=== PATIENT | female | born 1940 | race Caucasian/White ===

== ENCOUNTER 2023-11-10 10:14 | Inpatient (IN) | payer MEDICARE, OTHER, SELFPAY ==
[2023-11-10] VITALS (20 sets, daily range): BP systolic 126–188; BP diastolic 53–68; BMI 24.1
--- NOTE | 2023-11-10 10:18 | W.PN.CARDCBS ---
Today's Communication / Plan
-
LHC
repeat echo in AM
cardiac rehab consult
Impression / Plan
-
PCP: Reece Michele, DO
CDY: John Donovan MD
HPI: 83 y/o white female, PMH sig for CAD w/LAD PCI (05/2020), difficult to control HTN and has seen Dr. Shrestha in the past for management, LVH, LBBB, HLD intolerant to statins, hypothyroidism. She keeps a daily BP log and states normal for her is
120s. She recently was in [facility] 10/03/23 with hypertensive urgency with associated chest pain. BP meds adjusted and she was discharged after 3 days.
Presented to [facility] on 11/06 with new onset chest discomfort radiating to left axilla and arm, no other associated symptoms. It was similar to her chest pain prior to her stent in 2019. EKG NSR w/LBBB, no acute changes. HS troponin peak at 115.
Started on IV heparin and transferred today for [facility].
Echo 05/2023- nml LVSF, EF 60-65%, mild CLVH, mild MR, mild AR, no sig change since 2019
IMPRESSION/PLAN:
NSTEMI
CAD w/prior LAD PCI (05/2020) with known LBBB since then
now with similar anginal symptoms and elevated HS troponin
LHC today
asa 81mg daily- dose given this morning
echo in AM
cardiac rehab consult
followup at [facility] at discharge
HTN- difficult to control and recent hospitalization for hypertensive urgency
currently on losartan 50 BID, nifecipine ER 60/d with PRN HCTZ 25/d if SBP>160
SBP 150s for now- monitor on tele and adjust as needed
she had symptomatic hypotension with labetolol, which was d/c in September 2023.
LVH noted on echo from 05/2023
HLD- statin intolerant- even low dose twice a week rosuvastatin
hold off for now, check lipid profile
Anxiety- continue celexa, PRN ativan
Progress Note - Slot Floorperson
Subjective
Date of Service: November 10, 2023
Physical Exam
Physical Exam
AAO3, MAEE 10/25
RRR S1 S2 no murmurs
CTA bilat, non labored
soft abd, + bs
bilat extremities w/palpable distal pulses, no edema
[2023-11-10] MEDS: NSS 204 ML IV (11:10)
[2023-11-10 11:49] LABS: Glucose - Point of Care 111 mg/dl (70-99)
--- NOTE | 2023-11-10 13:40 | ITS.CL.CATH ---
Meat Washer - Catheterization
Cardiac Catheterization
Procedure Report:
CARDIAC CATHETERIZATION REPORT
Date of Procedure: 11/10/2023
Referring: Diego Osorio D.O.
INDICATION: Known coronary artery disease, troponin elevation. Difficult to control hypertension.
PROCEDURE:
1. Left heart catheterization.
2. Coronary angiography
3. IFR of the mid RCA.
ACCESS:
6 [place] right radial artery.
CATHETERS:
1. 5 [place] JR4.
2. 5 [place] JL 3.5.
3. 6 [place] JR4 guiding catheter.
HEMODYNAMIC DATA
Weight (kg): 68.0
AO (s/d/x, mmHg): 169/67/109
LV (s/x mmHg): 169/9
LEFT VENTRICULOGRAPHY: Not performed.
CORONARY ANGIOGRAPHY
Dominance: Right.
Left Main: Normal size, trifurcating vessel. There is no coronary artery disease.
LAD: Normal size vessel giving rise to 1 significant diagonal. A patent stent is visible in the mid vessel with no evidence of in-stent restenosis.
Ramus: Medium size vessel supplying the majority of the lateral wall. There is no coronary artery disease.
Circumflex: Normal size, nondominant vessel, essentially a single large marginal supplying the inferolateral wall. There is a 30% lesion in the ostium of the vessel.
RCA: Normal size, dominant vessel. There are tandem 40% lesions in the mid vessel.
INTERVENTION(S)
1. Successful IFR of the tandem 40% mid RCA lesions demonstrating nonocclusive disease (IFR = 0.94).
Narrative:
The decision was made to perform physiologic testing. The diagnostic catheter was removed over a wire and exchanged for a(n) 6 [place] JR4 guiding catheter. The guiding catheter was advanced into the ascending aorta and seated in the right coronary
artery. Additional heparin was given to obtain an ACT greater than 250 seconds. An iFR wire was zeroed outside of the body, then inserted into the guiding sheath. The wire was advanced and the transducer was normalized just outside of the guiding
catheter tip. The wire was advanced into the distal RCA. Three iFR measurements were taken. The lesion was determined to be nonocclusive (0.94).
Closure Device: Vascular band for the right radial artery.
Radiation (mGy): 203.66
DAP (cm2.Gy): 13.0531
Fluoroscopy time (minutes): 4.2
Sedation time (minutes): 36
CONCLUSIONS
1. Right dominant circulation with a patent stent in the mid LAD, a 30% lesion in the ostium of the left circumflex and nonocclusive, tandem 40% mid RCA lesions (IFR = 0.94).
2. Normal filling pressures (LVEDP = 9 mmHg at 68.0 kg).
3. Known labile and difficult to control hypertension.
RECOMMENDATIONS:
1. Expectant management after cardiac catheterization via right radial approach.
2. Limited weight bearing on the right wrist for one week.
3. No obvious source of troponin leak from an epicardial coronary obstruction standpoint. I suspect that this is due to her difficult to control blood pressure.
4. Continue losartan and nifedipine.
5. The patient should take a double dose of her losartan if she notices her blood pressure spiking.
Copy to: [ ]
Toan Santamaria, DO, FACC, FACP
[2023-11-10 14:48] LABS: ACT-LR - POC > 397 Seconds (116-155)
[2023-11-10] MEDS: ALDACTONE 25 MG PO (15:13)
--- NOTE | 2023-11-10 15:57 | CM ---
CM following for DC planning needs.
Met w/ patient at bedside to complete initial assessment.
Pt. resides at [facility] w/ spouse in the indep. living apartments. Pt. is functionally indep. without use of any assisted device. Pt. ambulates with a walking stick if walking in the [place].
Pt. has Rx plan and uses [facility] for prescription needs.
Pt. may need transportation back home upon DC as spouse does not drive.
Reviewed options.
Anticipate return to home upon DC.
Will cont. to follow.
--- NOTE | 2023-11-10 17:51 | PTCARENOTE ---
Rec'd pt from section laborer awake and alert. Pt denies pain, denies sob. Pt assisted oob, ambulated to bathroom. Pt states she felt dizzy when she stood up. Pt NSR with frequent PVC's when she stood up. Rt radial TR band, air released as per protocol. Pt
denies CP, denies sob. See worklist for VS/I and O and assessments.
--- NOTE | 2023-11-10 18:38 | PTCARENOTE ---
TR band removed. dsg applied. no bleeding, no hematoma noted.
[2023-11-10] MEDS: COZAAR 50 MG PO (20:05)
--- NOTE | 2023-11-10 23:32 | PTCARENOTE ---
Patient denies any complaints of pain or discomfort. Right radial cath site wnl. Remains in SR in the 60-70's. Receiving frequent phone calls from her .
[2023-11-11 04:45] VITALS: BP 176/65
[2023-11-11] MEDS: SYNTHROID 75 MCG PO (04:57)
[2023-11-11 05:22] LABS: Hematocrit 35.8 % (37.0-47.0); Hemoglobin 12.5 g/dL (12.0-16.0); Mean Corp Hgb Conc. 34.9 g/dL (33.0-37.0); Mean Corpuscular Hgb 30.6 pg (27.0-31.0); Mean Corpuscular Volume 87.7 fL (81.0-99.0); Mean Platelet Volume 10.7 fL (7.4-10.4); Platelet Count 254 10^3/uL (130-400); Red Blood Cell Count 4.08 10^6/uL (4.20-5.40); Red Cell Dist. Width 13.2 % (11.5-14.5); White Blood Cell Count 9.3 10^3/uL (4.8-10.8)
[2023-11-11 05:36] LABS: Blood Urea Nitrogen 16 mg/dl (7-17); Calcium 9.2 mg/dl (8.4-10.2); Carbon Dioxide 21 mmol/L (22-30); Chloride 103 mmol/L (98-107); Estimated Creatinine Clearance 57 ml/min; Glucose 103 mg/dl (70-99); HDL Cholesterol 64 mg/dl; LDL Cholesterol, Calculated 104 mg/dl; Sodium 131 mmol/L (135-145); Total Cholesterol 184 mg/dl (50-199); Triglyceride 80 mg/dl (10-149); Very Low Density Lipoprotein 16 mg/dl (0-30); eGFR > 60.00
[2023-11-11 08:05] VITALS: BP 163/67
--- NOTE | 2023-11-11 08:41 | W.PN.CARDCBS ---
Addendum entered and electronically signed by John Donovan MD 11/11/23 09:05:
I saw and examined the patient.
The ANESTHETIST's note was reviewed and I agree with the note.
Comment: She is feeling well. On exam rra site well healed, rrr lungs cta, no le edema a&o x 3. Will try and get better longitudinal control of bp, diuretic not ideal with low na and high k, will increase nifedipine. She will call my office next
week with home bp log, ok for d/c
Original Note:
Today's Communication / Plan
-
stable for d/c home
Impression / Plan
-
PCP: Dr. Laws at [facility]
CDY: John Donovan MD
HPI: 83 y/o white female, PMH sig for CAD w/LAD PCI (05/2020), difficult to control HTN and has seen Dr. Shrestha in the past for management, LVH, LBBB, HLD intolerant to statins, hypothyroidism. She keeps a daily BP log and states normal for her is
120s. She recently was in [facility] 10/03/23 with hypertensive urgency with associated chest pain. BP meds adjusted and she was discharged after 3 days.
Presented to [facility] ER on 11/06 with new onset chest discomfort radiating to left axilla and arm, no other associated symptoms. It was similar to her chest pain prior to her stent in 2019. EKG NSR w/LBBB, no acute changes. HS troponin peak at 115.
Started on IV heparin and transferred today for [facility].
Echo 05/2023- nml LVSF, EF 60-65%, mild LVH, mild MR, mild AR, no sig change since 2019
11/10/23 LHC:
1. Right dominant circulation with a patent stent in the mid LAD, a 30% lesion in the ostium of the left circumflex and nonocclusive, tandem 40% mid RCA lesions (IFR = 0.94).
2. Normal filling pressures (LVEDP = 9 mmHg at 68.0 kg).
3. Known labile and difficult to control hypertension.
IMPRESSION/PLAN:
Non ischemic myocardial injury
CAD w/prior LAD PCI (05/2020) with known LBBB since then
mild troponin elevation peak HS 115 at [facility] with non occlusive RCA lesion IFR neg
rad site stable
continue asa 81mg daily
followup at [facility] at discharge
HTN- difficult to control and recent hospitalization for hypertensive urgency
currently on losartan 50 BID, nifedipine ER 60/d with PRN HCTZ 25/d if SBP>160
K 5.0 so unable to use spironolactone, will increase nifedipine to 90mg daily
will recheck BMP in 1 week
she had symptomatic hypotension and bradycardia with labetalol, which was d/c in September 2023.
unable to use BB
LVH noted on echo from 05/2023
HLD- statin intolerant- even low dose twice a week rosuvastatin
hold off for now, check lipid profile
Anxiety- continue celexa, PRN ativan
Progress Note - Wallpaper Inspector And Shipper
Subjective
Date of Service: November 11, 2023
no cp, sob, feels good
Objective
Labs:
11/11/23 04:50
11/11/23 04:50
Labs
Hgb 12.5 g/dL (12.0-16.0) 11/11/23 04:50
Hct 35.8 % (37.0-47.0) L 11/11/23 04:50
Plt Count 254 10^3/uL (130-400) 11/11/23 04:50
Sodium 131 mmol/L (135-145) L 11/11/23 04:50
Potassium 5.0 mmol/L (3.5-5.1) 11/11/23 04:50
BUN 16 mg/dl (7-17) 11/11/23 04:50
Creatinine 0.7 mg/dL (0.6-1.0) 11/11/23 04:50
Glucose 103 mg/dl (70-99) H 11/11/23 04:50
Vital Signs and I&O:
Vital Signs
Temp Pulse Resp BP Pulse Ox
97.6 F 75 16 176/65 98
11/11/23 08:04 11/11/23 08:04 11/11/23 08:04 11/11/23 04:45 11/11/23 08:04
Vital Signs
Temp Pulse Resp BP Pulse Ox
97.6 F 75 16 176/65 98
11/11/23 08:04 11/11/23 08:04 11/11/23 08:04 11/11/23 04:45 11/11/23 08:04
Intake & Output
11/09/23 11/10/23 11/11/23 11/12/23
06:59 06:59 06:59 06:59
Intake Total 1454 / 1454
Balance 1454 / 1454
Physical Exam
Physical Exam
NAD, AOX3
S1, S2, RRR
CTAB, non labored, no wheeze
SNTND bsx4
R rad site c/d/i no HT, good pulse
[2023-11-11] MEDS: PROCARDIA XL (EXTENDED RELEASE) 60 MG PO (09:20)
[2023-11-11] MEDS: ALDACTONE 25 MG PO (09:20)
[2023-11-11] MEDS: ASPIR LOW (ENTERIC COATED) 81 MG PO (09:20)
[2023-11-11] MEDS: FOLVITE 0.400000000000000022 MG PO (09:21)
[2023-11-11] MEDS: CELEXA 10 MG PO (09:21)
[2023-11-11] MEDS: COZAAR 50 MG PO (09:21)
[2023-11-11 09:46] VITALS: BMI 24.0
[2023-11-11 11:31] VITALS: BP 141/53
--- NOTE | 2023-11-11 11:41 | CM ---
CM following for DC planning needs.
Pt. for DC to home today. Order noted.
Met w/ patient at bedside. Pt. feels well; states that she has transport home by a friend this PM.
Declined need for VN.
Pt. has outpatient labs needed in x1 wk. Pt. informs me that her facility has O/P lab M/W/F. Faxed RX to [facility] [address] (@[email or web address]) for their records, paper RX placed in DC chart.
No other needs identified.
Plan: HOME, no needs.
--- NOTE | 2023-11-11 13:45 | W.DS.TRANS ---
DC Summary - Drainage Engineer
-
Discharge Instructions:
Discharge Diagnosis/Procedures NSTEMI, s/p cardiac catheterization
Diet Low Cholesterol
Driving Restrictions No driving for 24 hours
Blood Work Check BMP in 1 week
Other Services Cardiac Rehab
Instructions:
Stand-Alone Forms: DC Instructions- Cath/EP Lab
Changes to Home Medications: Yes
Discharge Medications:
DC Medications w/original date entered in [facility]
L.acidoph, paracasei,B. lactis 10 billion cell capsule 1 ea PO DAILY Supplement 06/05/20
aspirin 81 mg tablet,delayed release 81 mg PO DAILY Blood clot prevention/tx 06/05/20
carboxymethylcellulose sodium 0.25 % eye drops (TheraTears) 15 ml OP DAILYPRN PRN dry eyes 06/05/20
cyanocobalamin (vitamin B-12) 1,000 mcg tablet 1,000 mcg PO DAILY Supplement 06/05/20
folic acid 400 mcg tablet 0.4 mg PO DAILY Supplement 06/05/20
levothyroxine 75 mcg tablet 75 mcg PO DAILY Thyroid 06/05/20
milk thistle 500 mg capsule 500 mg PO QPM Supplement 06/05/20
nitroglycerin 0.4 mg sublingual tablet 0.4 mg sublingual [id number] PRN chest pain 06/05/20
phytonadione (vitamin K1) 100 mcg tablet 100 mcg PO DAILY Supplement 06/05/20
vitamin E (dl, acetate) 45 mg (100 unit) capsule 100 units PO QPM Supplement 06/05/20
cholecalciferol (vitamin D3) 125 mcg (5,000 unit) tablet (Vitamin D3) 125 mcg PO DAILY 11/10/23
citalopram 10 mg tablet (Celexa) 10 mg PO DAILY 11/10/23
coenzyme Q10 150 mg capsule 150 mg PO DAILY 11/10/23
hydrochlorothiazide 25 mg tablet 25 mg PO DAILY PRN SBP>160 11/10/23
lorazepam 0.5 mg tablet 0.5 mg PO HS PRN anxiety 11/10/23
losartan 50 mg tablet 50 mg PO BID 11/10/23
omega-3 fatty acids-fish oil 684 mg-1,200 mg capsule,delayed release 1 cap PO QPM 11/10/23
nifedipine 90 mg tablet,extended release 24 hr 90 mg PO DAILY #30 tabs 11/11/23
Home Medication Changes
increase nifedipine to 90 daily
Pending Results: No
== END 2023-11-11 14:36 | disposition home or self-care (01) | DRG 287 ==
LOC: IVU 10:14
PROVIDERS: Nurse Practitioner; ADMITTING PHYSICIAN Internal Medicine Cardiovascular Disease; FAMILY PHYSICIAN Internal Medicine
PROC: 4A023N7 Measurement of Cardiac Sampling and Pressure, Left Heart, Percutaneous Approach (ICD-10-PCS; 2023-11-10)
PROC: B2111ZZ Fluoroscopy of Multiple Coronary Arteries using Low Osmolar Contrast (ICD-10-PCS; 2023-11-10)
DX: I5A Non-ischemic myocardial injury (non-traumatic) (principal); I25.10 Atherosclerotic heart disease of native coronary artery without angina pectoris; I16.0 Hypertensive urgency; I11.9 Hypertensive heart disease without heart failure; E78.5 Hyperlipidemia, unspecified; F41.9 Anxiety disorder, unspecified; Z79.82 Long term (current) use of aspirin; I44.7 Left bundle-branch block, unspecified; E03.9 Hypothyroidism, unspecified
CPT/HCPCS: 80048; 80061; 82962; 85027; 85347; 87070; 93005; 93458; 93571; C1769; C1894; Q9967

== ENCOUNTER 2024-03-23 11:00 | Inpatient (IN) | payer MEDICARE, OTHER, SELFPAY ==
[2024-03-23] VITALS (18 sets, daily range): BP systolic 127–198; BP diastolic 53–118; BMI 25.1
[2024-03-23] MEDS: PROCARDIA XL (EXTENDED RELEASE) 90 MG PO (11:01)
--- NOTE | 2024-03-23 11:04 | W.PN.CD ---
Today's Communication / Plan
-
-CT surgery consulted.
-Neurology consult to determine whether patient can be placed on heparin.
-Holding Plavix for anticipation of CT surgery.
-Will obtain transthoracic echocardiogram today.
-Cardiac catheterization tomorrow for coronary assessment.
Impression / Plan
-
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 Donovan, her primary Lime Kiln Tender) with hypertension and hypothyroidism who underwent elective SILVER today for recent stroke and was managed at an outside hospital; an outpatient SILVER/ILR was recommended by that
Institution. Plan was for a SILVER/ILR today, but the patient was found to have a 1.0 x 1.8 cm mobile echodensity on the ventricular surface of the mitral valve on the SILVER; therefore, the subsequent ILR was canceled. Patient admitted to Cardiology
service to undergo CT Surgery evaluation. Patient was on aspirin/Plavix for recent CVA, as per Neurology.
CVA/Mitral valve mobile echodensity:
-CT surgery consulted.
-Neurology consult to determine whether patient can be placed on heparin.
-Holding Plavix for anticipation of CT surgery.
-Will obtain transthoracic echocardiogram today.
-Cardiac catheterization tomorrow for coronary assessment.
Aortic regurgitation:
-Likely mild to moderate on SILVER, but will obtain better assessment via transthoracic echo today.
Hypertension:
-Continue outpatient medications for now.
Physical Exam
Vital Signs/Labs
Vital Signs
Temp Pulse Resp BP Pulse Ox
97.6 F 64 18 186/61 100
03/23/24 10:47 03/23/24 11:01 03/23/24 10:47 03/23/24 11:01 03/23/24 10:47
03/22/24 03/23/24 03/24/24
06:59 06:59 06:59
Actual Weight 68.492 kg
Physical Exam
Constitutional: No acute distress and Comfortable
EENT: Anicteric
Cardiovascular: Rhythm & rate is regular, Pedal edema is absent, Systolic murmur present (Soft 2/6 systolic) and S1S2 is normal
Respiratory: Respiratory effort normal
GI: Soft
Neuro/Psych: AO x 3
Other: Skin (Warm, dry, intact)
Data Reviewed
-
Date of Service: March 23, 2024
EKG: Tracing Personally Visualized and interpreted (Telemetry: Sinus rhythm)
Echo: Tracing Personally Visualized and interpreted (1.0 x 1.8 cm mitral valve echodensity)
--- NOTE | 2024-03-23 13:38 | PTCARENOTE ---
Rec'd pt from pathology lab technician on tele monitor in NSR with elevated bp. Rec'd order for Procardia and bp stabilized (see flowchart). Neuro check completed with no deficits, pt has history of CVA on 02/29/2024 (see neuro check in flowchart). PT denied any
pain or discomfort. Ct scan of head is complete and awaiting results. Pt sitting at bedside eating lunch with call jain in reach.
--- NOTE | 2024-03-23 13:42 | CM ---
Reviewed chart. Met with Mrs. Hollingsworth to review discharge plans. She states prior to admission she resides with her spouse in [facility] beds at the [facility]. She states she has been there for seven years. She states prior to
admission she was independent with ambulation and adls. She states her double vision is the only deficient from her CVA. She states she does not have any DME in the home. She states she has a prescription plan and uses [facility]. Medical
work-up in progress. The discharge plan is to return home with her spouse when medically stable.
--- NOTE | 2024-03-23 13:51 | CONSULT.CT ---
Consultation
-
Date/Time Consultation Requested: 03/23/24
Date/Time Consultation Performed: 03/23/24
Requesting Provider: Iva
Performing Provider: Latrice Saldaña PA-C for Dr. Teddy Valdez
Reason for Consultation: MV mass
Patient History
Physicians
Family Physician: Dr. Karla Barbosa
Outpatient Lead C Developer: Zion
Inpatient Lead C Developer: SHAKEEL
History of Present Illness
Pt is a very pleasant 83y/oM with multiple recent hospitalizations this year mostly with hypertensive urgency/emergencies, lightheadedness and headaches. She was admitted again to [facility] 03/01 with dx CVA (multiple acute & subacute infarcts), pt
describes new onset double vision without other neurological deficits. 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 We are asked to evaluate for surgical
intervention.
Past Medical History
Past Medical History: Other
Hypertension
Hyperlipidemia
CAD s/p stent to LAD 2019
statin intolerance
beta liane intolerance (severe bradycardia, syncope)
LBBB
hypothyroidism
anxiety
Past Surgical History
Past Surgical History: None
Dental History
recently seen by primary dentist 1 month ago; no issues
Family History
Mother: N/A
Father: N/A
Social History
Alcohol: None
Drug: None
Tobacco: Non-Smoker
Personal:
Living: With Spouse
Employment: Retired
Allergies
Allergy/AdvReac Type Severity Reaction Status Date / Time
levofloxacin [From Levaquin] Allergy Unknown Verified 11/10/23 10:46
mold Allergy sinus Verified 11/10/23 10:46
problems
oxycodone [From Percocet] Allergy Vomiting Verified 11/10/23 10:46
Penicillins Allergy sore Verified 11/10/23 10:46
throat and
tongue
Sulfa (Sulfonamide Allergy Pharmacy Verified 11/10/23 11:02
Antibiotics) to Review
beta blockers Allergy Severe Pharmacy Uncoded 11/10/23 11:02
to Review
Home Medications
�Medication �Instructions �Recorded �Confirmed �Type
L.acidoph, paracasei,B. lactis 10 1 ea PO DAILY Supplement 06/05/20 03/23/24 History
billion cell capsule
aspirin 81 mg tablet,delayed 81 mg PO DAILY Blood clot 06/05/20 03/23/24 History
release prevention/tx
carboxymethylcellulose sodium 0.25 15 ml OP BID 06/05/20 03/23/24 History
% eye drops (TheraTears)
cyanocobalamin (vitamin B-12) 1,000 mcg PO DAILY Supplement 06/05/20 03/23/24 History
1,000 mcg tablet
folic acid 400 mcg tablet 0.4 mg PO DAILY Supplement 06/05/20 03/23/24 History
levothyroxine 75 mcg tablet 75 mcg PO DAILY Thyroid 06/05/20 03/23/24 History
milk thistle 500 mg capsule 500 mg PO QPM Supplement 06/05/20 03/23/24 History
nitroglycerin 0.4 mg sublingual 0.4 mg sublingual [id number] PRN 06/05/20 03/23/24 History
tablet chest pain
phytonadione (vitamin K1) 100 mcg 100 mcg PO DAILY Supplement 06/05/20 03/23/24 History
tablet
vitamin E (dl, acetate) 45 mg (100 100 units PO QPM Supplement 06/05/20 03/23/24 History
unit) capsule
cholecalciferol (vitamin D3) 125 125 mcg PO DAILY 11/10/23 03/23/24 History
mcg (5,000 unit) tablet (Vitamin
D3)
citalopram 10 mg tablet (Celexa) 10 mg PO BID 11/10/23 03/23/24 History
coenzyme Q10 150 mg capsule 150 mg PO DAILY 11/10/23 03/23/24 History
lorazepam 0.5 mg tablet 0.5 mg PO HS PRN anxiety 11/10/23 03/23/24 History
losartan 50 mg tablet 50 mg PO DAILY 11/10/23 03/23/24 History
omega-3 fatty acids-fish oil 684 1 cap PO QPM 11/10/23 03/23/24 History
mg-1,200 mg capsule,delayed release
nifedipine 90 mg tablet,extended 90 mg PO DAILY #30 tabs 11/11/23 03/23/24 Rx
release 24 hr
clopidogrel 75 mg tablet (Plavix) 75 mg PO DAILY 03/23/24 03/23/24 History
hydralazine 50 mg tablet 50 mg PO TID PRN sbp >180 03/23/24 03/23/24 History
Review of Systems
-
History Source: Patient
General: Denies Fever or Chills
HEENT: Reports Visual Changes (double vision since CVA 03/01)
Respiratory: Denies SOB, [place] or Cough
Cardiac: Denies Chest Pain, Palpitations, Diaphoresis or Edema
Abdomen/GI: Denies Abdominal Pain, Nausea or Vomiting
: Denies Dysuria
Neurological: Reports CVA, Headaches (posterior, mild, intermittent) and Dizzy (intermittent lightheadedness)
Vascular: Denies Claudication
Physical Exam
Vital Signs
Temp 97.6 F 03/23/24 10:47
Temp route: Oral 03/23/24 10:47
Pulse 68 03/23/24 13:15
Rhythm: Normal sinus rhythm 03/23/24 13:17
Resp Rate 18 03/23/24 10:47
Blood pressure 139/71 03/23/24 13:00
Blood pressure extremity used: Left upper arm 03/23/24 10:47
Position: Lying 03/23/24 10:47
MAP (cuff-Arvind Monitor) 89 03/23/24 13:00
SaO2 100 03/23/24 10:47
Oxygen Mode of Delivery Room air 03/23/24 10:47
Can the patient verbally communicate their pain? Yes 03/23/24 13:17
Actual Weight 68.492 kg 03/23/24 10:28
Body Mass Index (BMI) 25.1 03/23/24 10:28
Diagnostic Studies
Procedure Date: 03/23/24 Transesophageal Echo Report
CONCLUSIONS
-Left ventricular ejection fraction is 60-65%. Normal regional wall motion.
-No thrombus detected in the left atrial appendage.
-Moderately thickened posterior mitral valve leaflet with a large, mobile,
echodensity on the ventricular surface of the posterior leaflet measuring
approximately 1.2 x 1.8 cm. 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
differential diagnosis should also include vegetation, thrombus, or other
intracardiac mass.
-Mild mitral regurgitation.
-At least mild to moderate aortic regurgitation.
-At least mild to moderate tricuspid regurgitation.
Exam
General: Well Developed, Well Nourished and No Apparent Distress
HEENT: Normocephalic and Anicteric
Neck: Negative Carotid Bruit
Respiratory: Clear; Negative Wheezes, Crackles or Rhonchi
Cardiac: Regular Rhythm; Negative Murmur, Rub or Gallop
GI: Soft and Non Tender
Rectal: Deferred by Provider
Skin: Warm and Dry
Neuro: No Motor Deficits
Extremities: Negative Lower Level Edema
Psych: Calm
Assessment / Plan
-
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
mild MR
mild-mod AI
mild-mod TR
Heparin starting per cards/neuro. Discussed with patient plans for preoperative evaluation and risk assessment prior to surgery with US carotids, CT chest (+/- contrast TBD, will d/w Dr. Valdez), labs. Cards plans for [facility] tomorrow. Pt takes plavix
chronically, has been held since last dose this AM (03/23), she understands need for plavix washout x5 days prior to surgical intervention. She has recently been seen by her primary dentist, will obtain Panorex & clearance from her Dr. Continue
medical management with good BP control per cardiology. Will need to hold BRITT/ARBs 48hrs prior to surgery. Full evaluation by attending to follow.
Data Reviewed
-
Wireless Internet Installer: Report Reviewed by me
Echo: Report Reviewed by me
CT Scan: Report Reviewed by me
Labs: Labs Reviewed by me
[2024-03-23 14:12] LABS: APTT 43.1 Sec (23.4-35.0)
[2024-03-23 14:24] LABS: % Basophils 0.6 % (0-2); % Eosinophils 1.6 % (0-6); % Immature Granulocytes 0.3 % (0-0.5); % Lymphocytes 18.9 % (20.5-51.1); % Monocytes 8.1 % (1.7-9.3); % Neutrophils 70.5 % (42.2-75.2); Absolute Eosinophils 0.1 10^3/uL (0-0.7); Absolute Lymphocytes 1.2 10^3/uL (1.2-3.4); Absolute Monocytes 0.5 10^3/uL (0.1-0.6); Absolute Neutrophils 4.5 10^3/uL (1.4-6.5); Hematocrit 39.9 % (37.0-47.0); Mean Corp Hgb Conc. 35.1 g/dL (33.0-37.0); Mean Corpuscular Hgb 30.6 pg (27.0-31.0); Mean Corpuscular Volume 87.3 fL (81.0-99.0); Mean Platelet Volume 11.3 fL (7.4-10.4); Nucleated Red Blood Cells % 0 %; Platelet Count 244 10^3/uL (130-400); Red Blood Cell Count 4.57 10^6/uL (4.20-5.40); Red Cell Dist. Width 12.8 % (11.5-14.5); White Blood Cell Count 6.3 10^3/uL (4.8-10.8)
[2024-03-23] MEDS: HEPARIN 25000 UNITS/250 ML IV (14:33)
--- NOTE | 2024-03-23 14:53 | CON.NEURO4 ---
Addendum entered and electronically signed by Dano Suarez MD 03/24/24 11:48:
CT head: Cortical atrophy. Small vessel disease. Dilated ventricles.
Original Note:
Consultation - Neurology 4
-
CONSULTING PHYSICIAN: Dano Suarez MD (Neurology)
REFERRING PHYSICIAN: Cardiology
DICTATED BY: Dano Suarez MD
DATE/TIME OF REQUEST: 03/23/2024/
DATE/TIME OF CONSULTATION: 03/23/2024
Reason for Consultation: Double vision
History of Present Illness:
This is a 83 year old right handed female) who has presented to the hospital with (chief complaint) of double vision. She gives a h/o Hypertension, Hyperlipidemia, CAD s/p stent to LAD 2020, LBBB, hypothyroidism, anxiety atrial fibrillation who had
suffered a stroke in Feb and was evaluated and treated At [facility].
She had left sided weakness and MRI findings of bilateral embolic infarctions
Her left heart catheterization showed normal filling pressures with an LVEDP of 9 and patent stents to the mid LAD and a 40% mid RCA stenosis
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
She is being admitted for IV heparinization.
She did c/o double vision side by side. There is no focal weakness of the face or extremities since her recent CVA. No headaches dizziness loss of balance incoordination or gait impairment
Past Medical History: As above
Surgical History: None
Family History: NC
Social History: Lives at home
Allergies: Addendum
Home Medications: Addendum
Review of Symptoms:
Patient denies any fever, headache, chest pain, shortness of breath, GI or symptoms.
�Per the HPI.�All systems are reviewed negative except above.
�
Vital Signs:
The patient has a
Temp Pulse Resp BP Pulse Ox
36.4 C 68 18 127/60 100
03/23/24 10:47 03/23/24 14:30 03/23/24 10:47 03/23/24 14:00 10/01/24 10:47
Physical Exam:
The patient is afebrile, heart sounds S1 and S2 are (regular / irregular), and chest is clear to auscultation bilaterally.
- If not clear, describe.
Neurologic Examination:
The patient is awake, alert and oriented x 3. She is able to follow commands and answer questions appropriately. There is no aphasia or dysarthria. On cranial nerve assessment, pupils are 3 mm bilateral, round and reactive to light and
accommodation. Visual barron are full. Extraocular movements are impaired with limited abduction(L). Facial sensations are intact and bilaterally symmetrical, there is no facial asymmetry. Hearing is intact bilaterally to normal conversation
volume. Tongue palate and uvula are midline. Sternocleidomastoid strengths are full bilaterally. Motor strengths are 5/5 bilateral upper and lower extremities on medical research [place] scale. There is no drift or involuntary movement noted. Deep
tendon reflexes are 2+ bilateral upper and lower extremities and Babinski is absent bilaterally. Sensations of pain, touch, temperature and vibration are intact and bilaterally symmetrical. There was no extinction noted on double simultaneous
stimulation. Coordination is intact by finger to nose bilaterally.
Lab Results: Addendum
Neuro Imaging: CT head atrophy small vessel disease. Normal ventricles
Impression:
Ms. EMELY KUNZ is a 83 year old F who has presented to the hospital with (symptoms/chief complaint) of double vision
Differentials for the patient's presentation include:
1. LEFT Sixth cranial nerve palsy
2. Pontine lacunar CVA
Patient has the following risk factors for their symptoms:
IV Tenecteplase/IAT candidacy
Recommendations:
1. CT head
2. IV Heparin without bolus
3. BP management
4. Ophthalmology eval. OP
Discussed patient care with: Cardiology
Allergies
-
Allergies
Allergy/AdvReac Type Severity Reaction Status Date / Time
levofloxacin [From Levaquin] Allergy Unknown Verified 11/10/23 10:46
mold Allergy sinus Verified 11/10/23 10:46
problems
oxycodone [From Percocet] Allergy Vomiting Verified 11/10/23 10:46
Penicillins Allergy sore Verified 11/10/23 10:46
throat and
tongue
Sulfa (Sulfonamide Allergy Pharmacy Verified 11/10/23 11:02
Antibiotics) to Review
beta blockers Allergy Severe Pharmacy Uncoded 11/10/23 11:02
to Review
Vital Signs and Labs
-
Vital Signs and Labs:
Vital Signs
Temp Pulse Resp BP Pulse Ox
36.4 C 68 18 127/60 100
03/23/24 10:47 03/23/24 14:30 03/23/24 10:47 03/23/24 14:00 03/23/24 10:47
Lab Results
03/23/24 14:05
APTT 43.1 Sec (23.4-35.0) H 03/23/24 13:49
Medications
-
Active Medications
Generic Name Dose Route Start Last Admin
Trade Name Freq PRN Reason Stop Dose Admin
Acetaminophen 650 mg 03/23/24 10:04
Acetaminophen 325 Mg Tablet PO 04/20/24 10:03
Q4HPRN PRN
mild pain/GOODEN/temp> 100.4F
Aspirin 81 mg 03/24/24 08:00
Aspirin 81 Mg (Enteric Coated) Tablet PO 04/21/24 07:59
DAILY JASON
Carboxymethylcellulose Sodium 1 drops 03/23/24 20:00
Carboxymethylcellulose Ophth Gel (Celluvisc) Droperette OPHTH 04/20/24 19:59
BID JASON
Cholecalciferol 125 mcg 03/24/24 08:00
Cholecalciferol (Vitamin D3) 125 Mcg Tablet (5,000 Units) PO 04/21/24 07:59
DAILY JASON
Citalopram Hydrobromide 10 mg 03/23/24 20:00
Citalopram 10 Mg Tablet PO 04/20/24 19:59
BID JASON
Hydralazine HCl 50 mg 03/23/24 10:17
Hydralazine 50 Mg Tablet PO 04/20/24 10:16
TID PRN
sbp >180
Heparin Sodium 25,000 units in 250 mls @ 0 mls/hr 03/23/24 13:45 03/23/24 14:33
Heparin 71081 Units/250 Ml IV 250 mls
PER PROTOCOL JASON Administration
Protocol
Per Protocol
Levothyroxine Sodium 75 mcg 03/24/24 06:00
Levothyroxine 75 Mcg Tablet PO 04/21/24 05:59
DAILY@0600 JASON
Lorazepam 0.5 mg 03/23/24 10:17
Lorazepam 0.5 Mg Tablet PO 04/20/24 10:16
HS PRN
anxiety
Losartan Potassium 50 mg 03/24/24 08:00
Losartan 50 Mg Tablet PO 04/21/24 07:59
DAILY JASON
Nifedipine 90 mg 03/23/24 11:00 03/23/24 11:01
Nifedipine 30 Mg Extended Release Tablet PO 04/20/24 10:59 90 mg
DAILY JASON Administration
Polyethylene Glycol 17 grams 03/23/24 10:04
Polyethylene Glycol Powder 17 Grams Packet PO 04/20/24 10:03
DAILYPRN PRN
constipation
Senna/Docusate Sodium 1 tablet 03/23/24 10:04
Docusate W/Senna (Nicole-Colace) Tablet PO 04/20/24 10:03
BIDPRN PRN
constipation
Home Medications
�Medication �Instructions �Recorded
L.acidoph, paracasei,B. lactis 10 1 ea PO DAILY Supplement 06/05/20
billion cell capsule
aspirin 81 mg tablet,delayed 81 mg PO DAILY Blood clot 06/05/20
release prevention/tx
carboxymethylcellulose sodium 0.25 15 ml OP BID 06/05/20
% eye drops (TheraTears)
cyanocobalamin (vitamin B-12) 1,000 mcg PO DAILY Supplement 06/05/20
1,000 mcg tablet
folic acid 400 mcg tablet 0.4 mg PO DAILY Supplement 06/05/20
levothyroxine 75 mcg tablet 75 mcg PO DAILY Thyroid 06/05/20
milk thistle 500 mg capsule 500 mg PO QPM Supplement 06/05/20
nitroglycerin 0.4 mg sublingual 0.4 mg sublingual [id number] PRN 06/05/20
tablet chest pain
phytonadione (vitamin K1) 100 mcg 100 mcg PO DAILY Supplement 06/05/20
tablet
vitamin E (dl, acetate) 45 mg (100 100 units PO QPM Supplement 06/05/20
unit) capsule
cholecalciferol (vitamin D3) 125 125 mcg PO DAILY 11/10/23
mcg (5,000 unit) tablet (Vitamin
D3)
citalopram 10 mg tablet (Celexa) 10 mg PO BID 11/10/23
coenzyme Q10 150 mg capsule 150 mg PO DAILY 11/10/23
lorazepam 0.5 mg tablet 0.5 mg PO HS PRN anxiety 11/10/23
losartan 50 mg tablet 50 mg PO DAILY 11/10/23
omega-3 fatty acids-fish oil 684 1 cap PO QPM 11/10/23
mg-1,200 mg capsule,delayed release
nifedipine 90 mg tablet,extended 90 mg PO DAILY #30 tabs 11/11/23
release 24 hr
clopidogrel 75 mg tablet (Plavix) 75 mg PO DAILY 03/23/24
hydralazine 50 mg tablet 50 mg PO TID PRN sbp >180 03/23/24
[2024-03-23] MEDS: APRESOLINE 50 MG PO (16:56)
[2024-03-23] MEDS: CELEXA 10 MG PO (20:39)
[2024-03-23] MEDS: REFRESH CELLUVISC GEL 1 DROPS OPHTH (20:39)
[2024-03-23 21:05] LABS: APTT 85.4 Sec (23.4-35.0)
--- NOTE | 2024-03-23 21:30 | PTCARENOTE ---
received pt at change of shift. heparin gtt running as documented. plan of care discussed pt ambulated as a stand by assist to the bathroom- attends applied for stress incontinence. SR on the monitor.
[2024-03-24] VITALS (8 sets, daily range): BP systolic 111–198; BP diastolic 51–70; BMI 25.5
[2024-03-24] MEDS: APRESOLINE 50 MG PO (02:50)
[2024-03-24 03:02] LABS: Hematocrit 36.1 % (37.0-47.0); Hemoglobin 12.8 g/dL (12.0-16.0); Mean Corp Hgb Conc. 35.5 g/dL (33.0-37.0); Mean Corpuscular Hgb 29.7 pg (27.0-31.0); Mean Corpuscular Volume 83.8 fL (81.0-99.0); Mean Platelet Volume 11.2 fL (7.4-10.4); Platelet Count 248 10^3/uL (130-400); Red Blood Cell Count 4.31 10^6/uL (4.20-5.40); White Blood Cell Count 8.1 10^3/uL (4.8-10.8)
[2024-03-24 03:09] LABS: INR 1.04; PT 13.5 Sec (11.4-14.6)
[2024-03-24 03:11] LABS: APTT 121.4 Sec (23.4-35.0)
[2024-03-24 03:36] LABS: ALT (SGPT) 19 U/L (0-35); AST (SGOT) 25 U/L (14-36); Albumin 3.9 g/dl (3.5-5.0); Alkaline Phosphatase 56 U/L (38-126); Blood Urea Nitrogen 18 mg/dl (7-17); Carbon Dioxide 20 mmol/L (22-30); Chloride 104 mmol/L (98-107); Direct Bilirubin 0.1 mg/dl (0.0-0.4); Estimated Creatinine Clearance 48 ml/min; Glucose 98 mg/dl (70-99); Potassium 4.6 mmol/L (3.5-5.1); Sodium 135 mmol/L (135-145); Total Bilirubin 0.7 mg/dl (0.2-1.3); Total Protein 6.2 g/dl (6.3-8.2); eGFR > 60.00
[2024-03-24] MEDS: SYNTHROID 75 MCG PO (06:21)
--- NOTE | 2024-03-24 08:49 | W.PN.CD ---
Today's Communication / Plan
-
continue heparin gtt
hydralazine 25mg po tid
await CT scan reccs
Impression / Plan
-
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 Donovan, her primary [place]) with hypertension and hypothyroidism who underwent elective SILVER today for recent stroke and was managed at an outside hospital; an outpatient SILVER/ILR was recommended by that
Institution. Plan was for a SILVER/ILR today, but the patient was found to have a 1.0 x 1.8 cm mobile echodensity on the ventricular surface of the mitral valve on the SILVER; therefore, the subsequent ILR was canceled. Patient admitted to Cardiology
service to undergo CT Surgery evaluation. Patient was on aspirin/Plavix for recent CVA, as per Neurology.
CVA/Mitral valve mobile echodensity:
-CT surgery consulted await recommendations, preop testing has started
-Neurology consult ---await full recommnedations
-Holding Plavix for anticipation of CT surgery.
.
Aortic regurgitation:
-Likely mild to moderate on SILVER, TTE completed, will need to review final report.
Hypertension:labile
-I will add hydralazing 25mg tid and continue with prn dosing as needed.
Cath 11/10/2023 CORONARY ANGIOGRAPHY
Dominance: Right.
Left Main: Normal size, trifurcating vessel. There is no coronary artery disease.
LAD: Normal size vessel giving rise to 1 significant diagonal. A patent stent is visible in the mid vessel with no evidence of in-stent restenosis.
Ramus:Medium size vessel supplying the majority of the lateral wall. There is no coronary artery disease.
Circumflex: Normal size, nondominant vessel, essentially a single large marginal supplying the inferolateral wall. There is a 30% lesion in the ostium of the vessel.
RCA: Normal size, dominant vessel. There are tandem 40% lesions in the mid vessel.
INTERVENTION(S)
1. Successful IFR of the tandem 40% mid RCA lesions demonstrating nonocclusive disease (IFR = 0.94).
Physical Exam
Vital Signs/Labs
Vital Signs
Temp Pulse Resp BP Pulse Ox
97.9 F 64 20 150/66 97
03/24/24 07:22 03/24/24 07:23 03/24/24 07:22 03/24/24 07:23 03/24/24 08:44
03/23/24 03/24/24 03/25/24
06:59 06:59 06:59
Actual Weight 68.492 kg
03/24/24 02:45
03/24/24 02:45
PT 13.5 Sec (11.4-14.6) 03/24/24 02:45
INR 1.04 03/24/24 02:45
APTT 121.4 Sec (23.4-35.0) H 03/24/24 02:45
Magnesium 2.0 mg/dl (1.6-2.3) 03/24/24 02:45
Physical Exam
Constitutional: No acute distress
Cardiovascular: Rhythm & rate is regular, Pedal edema is absent, JVD pressure is normal, Systolic murmur absent and Diastolic murmur absent
Respiratory: Respiratory effort normal, Lungs clear to auscul., Wheeze Absent, Crackles Absent and Rhonchi Absent
Neuro/Psych: AO x 3
Data Reviewed
-
Date of Service: March 24, 2024
Medical Decision Making: Test Interpretation and Review of Case with other Provider
[2024-03-24] MEDS: PROCARDIA XL (EXTENDED RELEASE) 90 MG PO (08:55)
[2024-03-24] MEDS: CELEXA 10 MG PO ×2 (08:55→19:49)
[2024-03-24] MEDS: COZAAR 50 MG PO (08:55)
[2024-03-24] MEDS: VITAMIN D3 (cholecalciferol) 125 MCG PO (08:55)
[2024-03-24] MEDS: ASPIR LOW (ENTERIC COATED) 81 MG PO (08:55)
[2024-03-24] MEDS: REFRESH CELLUVISC GEL 1 DROPS OPHTH ×2 (08:55→19:49)
[2024-03-24 09:25] LABS: Glycohemoglobin (HgbA1c) 5.8 % (4.0-5.6)
[2024-03-24 10:15] LABS: APTT 97.5 Sec (23.4-35.0)
--- NOTE | 2024-03-24 11:26 | W.PN.UPDATE ---
Update Note
Progress Note Update
Pt seen with Dr. Valdez this am, preoperative workup is complete. 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 She is amenable to moving forward with surgery on FRIDAY after plavix washout with
[facility].
--- NOTE | 2024-03-24 13:19 | CM ---
Chart reviewed. Patient is independent of ADLS, lives with her in a 1 STH, 0 BURAK, 0 DME. Patient is going for a mass removal of the MV leaflet on Friday. Plan is for the patient to return home with CT Transitional RN. CM to follow
--- NOTE | 2024-03-24 15:38 | CM ---
Reviewed preoperative and postoperative instructions and restrictions, along with showering instructions. Gave patient Cardiac Surgery Book. Patient lives independent living at the [facility], [place]. Patient prefers to go to the SNF at the [facility], [place],
[facility], unsure if her will be able to assist with needs at discharge. Patient will need a PT evaluation after surgery. Plan is for the patient to return home witht CT Transitional RN vs SNF
[2024-03-24] MEDS: APRESOLINE 25 MG PO ×2 (16:04→22:09)
[2024-03-24 17:01] LABS: APTT 87.3 Sec (23.4-35.0)
[2024-03-24] MEDS: HEPARIN 25000 UNITS/250 ML IV (18:17)
--- NOTE | 2024-03-24 18:37 | PTCARENOTE ---
Pt up in her room to the bathroom several times today, pt states she will walk in halls tomorrow. Pt denies any discomfort. Eye patch given to help with double vision issues which she states is helping. Heparin infusion now at therapeutic level.
Telemetry shows sinus rhythm with frequent single PVC's and some triplets. Pt practicing incentive spirometer hourly.
--- NOTE | 2024-03-24 23:07 | PTCARENOTE ---
Pt rec'd at change of shift with no complaints. Sinus with freq pvc's and triplet noted. Heparin gtt continued at 700 units/hr.
[2024-03-25] VITALS (38 sets, daily range): BP systolic 129–201; BP diastolic 52–117; BMI 26.9
[2024-03-25 04:58] LABS: Hematocrit 35.5 % (37.0-47.0); Hemoglobin 12.5 g/dL (12.0-16.0); Mean Corp Hgb Conc. 35.2 g/dL (33.0-37.0); Mean Corpuscular Hgb 30.6 pg (27.0-31.0); Mean Corpuscular Volume 86.8 fL (81.0-99.0); Mean Platelet Volume 11.5 fL (7.4-10.4); Platelet Count 226 10^3/uL (130-400); Red Blood Cell Count 4.09 10^6/uL (4.20-5.40); Red Cell Dist. Width 13.1 % (11.5-14.5); White Blood Cell Count 7.5 10^3/uL (4.8-10.8)
[2024-03-25 05:10] LABS: APTT 96.9 Sec (23.4-35.0)
[2024-03-25] MEDS: SYNTHROID 75 MCG PO (06:26)
--- NOTE | 2024-03-25 08:02 | W.PN.CD ---
Today's Communication / Plan
-
-CT Surgery consulted; plan is to go to the OR on Friday after Plavix washout.
-Hydralazine 25 mg TID added yesterday; increase, if needed, to 50 mg TID.
Impression / Plan
-
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 Donovan, her primary [place]) with hypertension and hypothyroidism who underwent elective SILVER today for recent stroke and was managed at an outside hospital; an outpatient SILVER/ILR was recommended by that
Institution. Plan was for a SILVER/ILR today, but the patient was found to have a 1.0 x 1.8 cm mobile echodensity on the ventricular surface of the mitral valve on the SILVER; therefore, the subsequent ILR was canceled. Patient admitted to Cardiology
service to undergo CT Surgery evaluation. Patient was on aspirin/Plavix for recent CVA, as per Neurology.
CVA/Mitral valve mobile echodensity:
-CT Surgery consulted; plan is to go to the OR on Friday after Plavix washout.
-Appreciate Neurology input.
Aortic regurgitation:
-Mild on TTE.
Labile hypertension:
-Hydralazine 25 mg TID added yesterday; increase, if needed, to 50 mg TID.
Cath 11/10/2023 CORONARY ANGIOGRAPHY
Dominance: Right.
Left Main: Normal size, trifurcating vessel. There is no coronary artery disease.
LAD: Normal size vessel giving rise to 1 significant diagonal. A patent stent is visible in the mid vessel with no evidence of in-stent restenosis.
Ramus:Medium size vessel supplying the majority of the lateral wall. There is no coronary artery disease.
Circumflex: Normal size, nondominant vessel, essentially a single large marginal supplying the inferolateral wall. There is a 30% lesion in the ostium of the vessel.
RCA: Normal size, dominant vessel. There are tandem 40% lesions in the mid vessel.
INTERVENTION(S)
1. Successful IFR of the tandem 40% mid RCA lesions demonstrating nonocclusive disease (IFR = 0.94).
Physical Exam
Vital Signs/Labs
Vital Signs
Temp Pulse Resp BP Pulse Ox
98 F 90 20 167/61 97
03/25/24 07:21 03/25/24 08:00 03/25/24 07:21 03/25/24 07:25 03/25/24 07:21
03/24/24 03/25/24 03/26/24
06:59 06:59 06:59
Actual Weight 69.6 kg
03/25/24 04:15
03/24/24 02:45
PT 13.5 Sec (11.4-14.6) 03/24/24 02:45
INR 1.04 03/24/24 02:45
APTT 96.9 Sec (23.4-35.0) H 03/25/24 04:15
Magnesium 2.0 mg/dl (1.6-2.3) 03/24/24 02:45
Physical Exam
Constitutional: No acute distress and Comfortable
EENT: Anicteric
Cardiovascular: Rhythm & rate is regular, Pedal edema is absent, Systolic murmur present (1-2/6) and S1S2 is normal
Respiratory: Respiratory effort normal and Lungs clear to auscul.
GI: Soft
Neuro/Psych: AO x 3
Other: Skin (Warm, dry, intact)
Data Reviewed
-
Date of Service: March 25, 2024
EKG: Tracing Personally Visualized and interpreted (Telemetry: Sinus rhythm)
Labs: Labs Reviewed by me
[2024-03-25] MEDS: APRESOLINE 25 MG PO (08:33)
[2024-03-25] MEDS: VITAMIN D3 (cholecalciferol) 125 MCG PO (08:33)
[2024-03-25] MEDS: COZAAR 50 MG PO (08:33)
[2024-03-25] MEDS: REFRESH CELLUVISC GEL 1 DROPS OPHTH ×2 (08:33→19:58)
[2024-03-25] MEDS: CELEXA 10 MG PO (08:33)
[2024-03-25] MEDS: PROCARDIA XL (EXTENDED RELEASE) 90 MG PO (08:33)
[2024-03-25] MEDS: ASPIR LOW (ENTERIC COATED) 81 MG PO (08:33)
[2024-03-25 10:53] LABS: Glucose - Point of Care 157 mg/dl (70-99)
--- NOTE | 2024-03-25 11:08 | RR ---
A Rapid Response was called on this patient, please see Rapid Response form.
Pt rang call cristobal, had spilled breakfast tray on bed. Unable to tell RN how it happened. Pt had hard time finding words to explain in conversation. Unable to tell RN the current month or location of hospital. Rapid response called. Pt taken to CT
scan. Will continue to monitor.
--- NOTE | 2024-03-25 11:20 | W.PN.NEURO.1 ---
Today's Communication / Plan
-
Patient to continue IV heparin
Neuro Assessment/Plan
Assessment
83-year-old female with h/o hypertension and hypothyroidism embolic stroke who had mobile echodensity on the ventricular surface of the mitral valve on the SILVER;. Patient admitted to Cardiology service and to undergo CT
Pat on Heparin IV preop. She was in usual state of health till this morning when she had a brief episode of confusion that has resolved CT head was within normal limits
Plan
Continue IV heparin.
Continue current cardiac management
May proceed with cardiothoracic surgery as scheduled
EEG
Subjective/Objective
Subjective Data
Date of Service: March 25, 2024
Patient had a brief episode of confusion while having breakfast and was nonresponsive without loss of consciousness. Episode resolved and entirely and patient is currently at baseline. There is no focal weakness or numbness
NIHSS=0
Objective Data
Vital Signs
Temp Pulse Resp BP Pulse Ox
36.6 C 66 20 167/61 97
03/25/24 07:21 03/25/24 08:33 03/25/24 07:21 03/25/24 08:33 03/25/24 07:21
Lab Results
03/25/24 04:15
03/24/24 02:45
PT 13.5 Sec (11.4-14.6) 03/24/24 02:45
INR 1.04 03/24/24 02:45
APTT 96.9 Sec (23.4-35.0) H 03/25/24 04:15
Sodium 135 mmol/L (135-145) 03/24/24 02:45
Potassium 4.6 mmol/L (3.5-5.1) 03/24/24 02:45
BUN 18 mg/dl (7-17) H 03/24/24 02:45
Glucose 98 mg/dl (70-99) 03/24/24 02:45
Calcium 9.0 mg/dl (8.4-10.2) 03/24/24 02:45
Patient Allergies
levofloxacin [From Levaquin] Allergy (Verified 11/10/23 10:46)
Unknown
mold Allergy (Verified 11/10/23 10:46)
sinus problems
oxycodone [From Percocet] Allergy (Verified 11/10/23 10:46)
Vomiting
Penicillins Allergy (Verified 11/10/23 10:46)
sore throat and tongue
Sulfa (Sulfonamide Antibiotics) Allergy (Verified 11/10/23 11:02)
Pharmacy to Review
beta blockers Allergy (Severe, Uncoded 11/10/23 11:02)
Pharmacy to Review
Physical Exam
-
General: Well Developed, Well Nourished, No Apparent Distress and Comfortable
Eyes: Able to visualize OU, Unremarkable and Round OU
HEENT: Normocephalic and Atraumatic
Neck: No Bruits Bilaterally and Full Range of Motion
Respiratory: Clear to Auscultation
Cardiac: Regular Rhythm and No Murmur
GI: Normal Bowel Sounds
Skin: Unremarkable
Extremities: No Clubbing
Psych: Unremarkable
Extended Neurological Exam
Mood & Affect: Mood Unremarkable and Affect Unremarkable
Attention Span & Concentration: Awake, Alert, Interactive and No Difficulty with 2 Step Request
Memory: Unable to Recall
Tremor: Hand Tremor Absent and Head Tremor Absent
Involuntary Movement: None
Speech: Quality Unremarkable, Quantity Unremarkable and Rate of Production Unremarkable
Cranial Nerve II: Left Eye: Pupillary Reactivity Unremarkable, Pupillary Size Unremarkable and Visual Dean Grossly Intact
Cranial Nerve II: Right Eye: Pupillary Reactivity Unremarkable, Pupillary Size Unremarkable and Visual Dean Grossly Intact
Cranial Nerves III, IV, : Extraocular Movement: Extraocular Movement Full in all Directions
Cranial Nerve V: Facial Sensation: Intact to Light Touch
Cranial Nerve VII: Facial Symmetry: Normal Facial Symmetry
Cranial Nerve VIII: Hearing: Unremarkable Hearing to Normal Conversational Volume
Cranial Nerves IX, X: Palate Movement: Palate Elevation Symmetric
Cranial Nerve XI: Shoulder Shrug: Unremarkable
Cranial Nerve XII: Tongue Protusion: Midline
Muscle Strength, Overall: Full Throughout and Spontaneously Moves
Muscle Bulk & Tone: Bulk Unremarkable and Tone Unremarkable
Pronator Drift: No Drift in Upper Extremities and No Drift in Lower Extremities
Deep Tendon Reflexes: Trace Throughout
Cold Sensation: Unremarkable
Vibration Sensation: Unremarkable
Touch Sensation: Unremarkable
Coordination: [id number] Testing Unremarkable
Babinski Sign: Present Bilaterally
Gait & Station: Unable to Assess
Modified Wendie Score (MRS)
-
Modified Wendie Scale (mRS): Slight disability. Able to look after own affairs.
Score: 2
Data Reviewed
-
CT Head: Image Reviewed (Atrophy. Small vessel disease. Mild ventricular dilation)
--- NOTE | 2024-03-25 11:36 | PTCARENOTE ---
Pt arrived back from CT scan. Per Neurology, ok to continue treatment plan. NIH score of 2 at this time. Neuro check completed. Will continue to monitor.
--- NOTE | 2024-03-25 11:41 | W.PN.UPDATE ---
Update Note
Progress Note Update
Our cardiology service was alerted by nursing that stroke alert was called for patient due to some confusion/aphasia. Neuro evaluated and ordered head CT. Per neuro, head CT revealed no bleed and plan to continue current medical and surgical care. I
evaluated patient, who was in no distress at the time of my assessment. She denies any CP. She is oriented to self. She is answering questions appropriately, though is forgetful about the events of the AM. She CAM's equally and without difficulty.
PERRL. Tongue midline. No facial droop. Left eye was shut on arrival, which is not new and she was able to open it without difficulty. Discussed with nursing. Continue to monitor closely and make us aware if any other issues. Dr. Peters present to
assess patient as well, and we will order follow-up echo study at bedside for revaluation of MV echodensity.
[2024-03-25 12:54] LABS: Glucose - Point of Care 156 mg/dl (70-99)
--- NOTE | 2024-03-25 13:01 | PTCARENOTE ---
Pt noted to be more confused. Dr Peters and Dr Suarez made aware. received orders for stat CT. pt left for CT scan @1302.
[2024-03-25] MEDS: APRESOLINE PO (16:04)
[2024-03-25] MEDS: DEPACON 52.5 MG IV (16:04)
--- NOTE | 2024-03-25 16:31 | CM ---
Chart reviewed. Patient confused and agitation and what appears like seizure like tremors. Patient scheduled for CT Surgery on Friday, Mar 29. Patient is independent of ADLS, lives with [place] at the [facility], 1 STH, 0 BURAK, 0 DME.
Patient was interested in going to SNF after surgery at the [facility]. Patient will need PT evaluation after surgery. CM to follow
--- NOTE | 2024-03-25 16:40 | W.PN.HOSP.TC ---
Addendum entered and electronically signed by Kellee Freeman MD 03/25/24 17:59:
patient no longer nauseated
confirmed with family she is full code
Original Note:
Today's Communication/Plan
-
stat MRI ordered - case discussed with neuro and cardiology
Assessment / Plan
Assessment / Plan
Ms. Edith Hollingsworth is a 83 yo woman with hx CAD s/p PCI 2020, essential HTN, Hypothyroidism, HLD, recent admission to outside hospital for CVA s/p elective SILVER on 03/23/24 for further work-up found to have a 1.0 x 1.8cm mobile echodensity on mitral
valve admitted to cardiology service with plans for CT Surgery on Friday. Hospital course complicated by new expressive and receptive aphasia today.
SILVER 03/23/24
CONCLUSIONS
-Left ventricular ejection fraction is 60-65%. Normal regional wall motion.
-No thrombus detected in the left atrial appendage.
-Moderately thickened posterior mitral valve leaflet with a large, mobile,
echodensity on the ventricular surface of the posterior leaflet measuring
approximately 1.2 x 1.8 cm. 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
differential diagnosis should also include vegetation, thrombus, or other
intracardiac mass.
-Mild mitral regurgitation.
-At least mild to moderate aortic regurgitation.
-At least mild to moderate tricuspid regurgitation.
TTE 03/25/24
CONCLUSIONS
Follow up echo to assess echodensity associated with mitral valve.
There is a 0.9 cm x 1.1 cm echodensity associated with the posterior mitral
valve leaflet.
A pedunculated mobile component, which measured approximately 1.1 x 1.2 cm and
was visualized on prior TTE 03/23/24, is no longer visualized.
CT Head 03/25/24
IMPRESSION:
No acute intracranial abnormality noted.
Head/Neck CTA 03/25/24
IMPRESSION: No significant vascular occlusion, aneurysm or dissection.
TME
Receptive and Expressive Aphasia
-differential for presentation today includes CVA versus seizure versus TME 2/2 infection
-She is hypertensive to 190's on heparin gtt so started on nicardipine gtt with goal SBP < 180
-discussed with neurology and patient requires stat MRI to help determine if new stroke especially with repeat echo finding
-F/U UA, covid, influenza testing, blood cultures
-hold off on antibiotics - no clear signs of bacterial infection at this point
-will add on portable CXR
Hypertensive Urgency
-nicardipine gtt as above
-transfer to ICU
-Security Clerk consult
CVA 03/16 - She had left sided weakness and MRI findings of bilateral embolic infarctions
Mitral Valve Mobile Echodensity
-plan is to go to OR post Plavix Washout
-continue aspirin
-continue Heparin gtt
-appreciate neurology
-appreciate cardiology
Essential Hypertension
-continue Losartan, Nifedipine - if stroke seen will allow for permissive HtN
DVT PPx Hep gtt
Total Critical Care Time 45 minutes. I was immediately available to the patient and staff. I personally examined, reviewed labs, diagnostic images/reports, interpretations, treatment plans, discussed patient care with other providers and family
or caregivers (if patient is unable to make decisions), entered orders as appropriate and documented the medical record.
Anticipated Discharge: > 48 hours
Subjective/Interval History
-
Date of Service: March 25, 2024
Ms. Edith Hollingsworth is a 83 yo woman with hx CAD s/p PCI 2019, essential HTN, Hypothyroidism, HLD, recent admission to outside hospital for CVA s/p elective SILVER on 03/23/24 for further work-up found to have a 1.0 x 1.8cm mobile echodensity on mitral
valve admitted to cardiology service with plans for CT Surgery on Friday. Hospital course complicated by new expressive and receptive aphasia today.
History obtained by and RN. Only deficits on admission was double vision. This morning patient woke up feeling okay, normal conversation with RN. Around 9:30 she was found confused with tray fallen onto her and rapid was called. CT and
CTA obtained - no bleed and no new vessel occlusion. Mentation improved following but not completely back to baseline. She has been progressively more confused without the day. Currently she is very confused with receptive and expressive aphasia.
Denies pain.
Today RN witnessed intermittent shaking, she was conscious during episodes but confused. She was started on Depakote by Neurology for possible seizure.
Objective Data
-
Labs:
Laboratory Results
03/25/24 03/25/24
04:15 16:32
WBC 7.5 Pending
Hgb 12.5 Pending
Hct 35.5 L Pending
Plt Count 226 Pending
APTT 96.9 H
Sodium Pending
Potassium Pending
Chloride Pending
Carbon Dioxide Pending
BUN Pending
Creatinine Pending
Glucose Pending
Calcium Pending
Total Bilirubin Pending
AST Pending
ALT Pending
Alkaline Phosphatase Pending
Vital Signs:
Vital Signs
Temp Pulse Resp BP Pulse Ox
98.0 F 96 16 167/61 99
03/25/24 15:44 03/25/24 15:44 03/25/24 15:44 03/25/24 08:33 03/25/24 15:44
I&O
03/24/24 03/25/24 03/26/24
06:59 06:59 06:59
Intake Total 240 / 240 324 / 324
Output Total 200 / 200
Balance 240 / 240 124 / 124
Review of Systems
-
Unable to obtain full review of systems at this time due to: Other (patient confused)
History Source: Patient and Other (RN)
Physical Exam
-
General: No Apparent Distress
HEENT: PERRLA
Respiratory: Clear to Auscultation; Negative Wheezes
Cardiac: S1/S2 and Murmur
GI: Soft and Nontender
Musculoskeletal: No Edema
Neuro: Other (AAO x 1 - didn't know where she was or year; was able to repeat 'today is a bright and jacky day' but speech mumbled; + receptive aphasia intermittently following commands; can lift all 4 extremities off bed and hold x 5 seconds;
possible left sided neglect versus not following commands )
Psych: Calm and Confused
Data Reviewed
-
Diagnostic Radiology: Report Reviewed by me
Labs: Labs Reviewed by me
[2024-03-25] MEDS: CARDENE 200 IV (16:57)
--- NOTE | 2024-03-25 17:20 | W.PN.UPDATE ---
Update Note
Progress Note Update
Patient experienced several episodes of waxing/waning mental status. Patient was assessed at bedside, with family present. Case was discussed with neurology and hospital medicine.
Repeat TTE was done: mobile component of echodensity associated mitral valve, visualized on prior TTE, was not visualized on TTE today; raising concern for embolization. Will need repeat SILVER tomorrow if stable.
CTA head/neck was performed, and no vascular occlusion was identified.
Per neurology, seizure is now higher on Ddx, and depakote was started.
Mental status continued to wax/wane, and patient was re-assessed. Rigors noted on exam, with mild sinus tachy. No fever yet.
Discussed with hospitalist: concern for infectious etiology. Work up sent. Hospitalist will decide if empiric Abx needed. MRI brain also discussed. Patient accepted in transfer to hospitalist service and ICU level of care.
BP now >190, and patient now unable to follow commands for swallowing pills. Will use cardene drip for BP, and allow for some permissive HTN.
--- NOTE | 2024-03-25 18:16 | PTCARENOTE ---
late note due to pt care.
Pt transferred to ICU. Pt very restless in bed. Heparin gtt infusing per protocol. Cardene gtt infusing per protocol. Report called to ADILIA Hoang. [facility] performed in ICU with Natalya.
[2024-03-25 18:18] LABS: COVID-19 Antigen Negative (Negative)
--- NOTE | 2024-03-25 18:46 | PTCARENOTE ---
Pt arrived from IVU to ICU via stretcher at approx 1800, JOSE stroke scale= 4, done together with Deidre from IVU. Pt received on heparin IV at 700 units/hr, and cardene at 5 mg/hr. Cardene decreased to 2.5 mg/hr at 1825 (BP= 165/65), keeping sys
goal of 160-180. Pt straight cath'd for 600 ml of yellow urine, urine culture sent to lab. CBC, BMP, procalcitonin, and blood cultures x2 drawn and also sent to lab. Pt's and close family friend in with pt and updated, and were also able to
speech with MRI on pt's hx of any metal. Pt cleaned for sm hard formed BM. Phuc MCCOLLUM in room and also updated.
[2024-03-25 18:56] LABS: Hemoglobin 13.6 g/dL (12.0-16.0); Mean Corp Hgb Conc. 35.8 g/dL (33.0-37.0); Mean Corpuscular Hgb 29.7 pg (27.0-31.0); Platelet Count 263 10^3/uL (130-400); Red Blood Cell Count 4.58 10^6/uL (4.20-5.40); White Blood Cell Count 22.9 10^3/uL (4.8-10.8)
[2024-03-25] MEDS: ZOFRAN 4 MG IV (19:04)
[2024-03-25 19:06] LABS: Urine Albumin Negative (Neg - Trace); Urine Bilirubin Negative (Negative); Urine Character Clear (Clear); Urine Color Yellow; Urine Glucose Negative (Negative); Urine Ketone 2+ (Negative); Urine Leukocyte Negative (Negative); Urine Nitrite Negative (Negative); Urine Occult Blood Negative (Negative); Urine Urobilinogen Negative (Neg - 1+)
[2024-03-25 19:25] LABS: ALT (SGPT) 23 U/L (0-35); AST (SGOT) 43 U/L (14-36); Albumin 4.5 g/dl (3.5-5.0); Alkaline Phosphatase 68 U/L (38-126); Blood Urea Nitrogen 18 mg/dl (7-17); Calcium 9.6 mg/dl (8.4-10.2); Carbon Dioxide 19 mmol/L (22-30); Chloride 98 mmol/L (98-107); Estimated Creatinine Clearance 55 ml/min; Glucose 138 mg/dl (70-99); Potassium 4.1 mmol/L (3.5-5.1); Sodium 131 mmol/L (135-145); Total Bilirubin 0.9 mg/dl (0.2-1.3); Total Protein 6.9 g/dl (6.3-8.2); eGFR > 60.00
[2024-03-25 19:33] LABS: Procalcitonin < 0.05 ng/ml (0.0-0.25)
[2024-03-25] MEDS: CELEXA PO (19:58)
--- NOTE | 2024-03-25 20:00 | PTCARENOTE ---
Received pt via handoff. Pt able to move all extremities equally, pupils +3 and reactive. Forgets limitations and where she is but knows her name and birthday. Follows simple commands. NSR with palpable pulses bilaterally in upper and lower
extremities. 97% on room air diminished throughout. Hypoactive bowel sounds, incontinent. Purewick in place with no urine draining currently. SCD,s on, skin intact. Heparin and cardene gtts running see flowsheet. Will continue to monitor.
[2024-03-25] MEDS: VITAMIN B1 PO (22:55)
[2024-03-25] MEDS: HEPARIN 25000 UNITS/250 ML IV (22:55)
[2024-03-26] VITALS (60 sets, daily range): BP systolic 66–173; BP diastolic 41–87; PULSE 64–74; O2SAT 98; BMI 25.6
--- NOTE | 2024-03-26 00:57 | PTCARENOTE ---
Pt transported to MRI, vitals monitored all systems assessed and remain unchanged. Will continue to monitor.
[2024-03-26 03:50] LABS: Hematocrit 35.9 % (37.0-47.0); Hemoglobin 12.8 g/dL (12.0-16.0); Mean Corp Hgb Conc. 35.7 g/dL (33.0-37.0); Mean Corpuscular Hgb 30.5 pg (27.0-31.0); Mean Corpuscular Volume 85.5 fL (81.0-99.0); Mean Platelet Volume 11.3 fL (7.4-10.4); Platelet Count 237 10^3/uL (130-400); White Blood Cell Count 23.4 10^3/uL (4.8-10.8)
[2024-03-26 03:55] LABS: APTT 64.9 Sec (23.4-35.0)
[2024-03-26 04:01] LABS: Blood Urea Nitrogen 17 mg/dl (7-17); Calcium 9.3 mg/dl (8.4-10.2); Carbon Dioxide 21 mmol/L (22-30); Chloride 100 mmol/L (98-107); Estimated Creatinine Clearance 55 ml/min; Glucose 138 mg/dl (70-99); Magnesium 1.8 mg/dl (1.6-2.3); Potassium 4.4 mmol/L (3.5-5.1); Sodium 130 mmol/L (135-145); eGFR > 60.00
[2024-03-26] MEDS: SYNTHROID PO (05:36)
--- NOTE | 2024-03-26 05:53 | PTCARENOTE ---
All systems reassessed, pt seems more oriented to where she is but still confused why shes here, slight left eye droop as before but everything else remains unchanged. Will continue to monitor.
[2024-03-26 06:45] LABS: % Basophils 0.1 % (0-2); % Immature Granulocytes 0.6 % (0-0.5); % Lymphocytes 3.1 % (20.5-51.1); % Monocytes 6.8 % (1.7-9.3); % Neutrophils 89.4 % (42.2-75.2); Absolute Immature Granulocytes 0.2 10^3/uL (0-0.05); Absolute Lymphocytes 0.7 10^3/uL (1.2-3.4); Absolute Monocytes 1.6 10^3/uL (0.1-0.6); Absolute Neutrophils 20.9 10^3/uL (1.4-6.5); Nucleated Red Blood Cells % 0 %
--- NOTE | 2024-03-26 07:18 | CON.INTV ---
Consultation
Consultation Request
Date/Time Consultation Requested: 03/26/24
Date/Time Consultation Performed: 03/26/24
Performing Provider: Misael
Reason for Consultation: ICU
Medical History
-
History of Present Illness:
Patient is an 83-year-old female with previous history of CAD status post PCI 2019, hypertension, hyperlipidemia originally presenting to outside hospital for stroke underwent SILVER demonstrating 1.0 x 1.8 cm mobile echodensity. She was then
transferred to for CT surgery evaluation on 03/23/2024. Overnight developed confusion, aphasia a stroke alert was called. BP was notably increasing to above 180 systolic, she is placed on nicardipine drip and transferred to ICU for further
management.
.
Past Medical History
Past Medical History: Other (see list below)
Social History
Tobacco: Non-smoker
Alcohol: None
Drug: None
Family History
Family History: Reviewed & Not Pertinent
Allergies / Home Medications
Allergies
Allergy/AdvReac Type Severity Reaction Status Date / Time
levofloxacin [From Levaquin] Allergy Unknown Verified 11/10/23 10:46
mold Allergy sinus Verified 11/10/23 10:46
problems
Penicillins Allergy sore Verified 11/10/23 10:46
throat and
tongue
Sulfa (Sulfonamide Allergy Throat Verified 03/25/24 20:02
Antibiotics) burning
Beta-Blockers AdvReac Nearly Verified 03/25/24 20:02
(Beta-Adrenergic Bloc coded from
severe
bradycardia
oxycodone [From Percocet] AdvReac Vomiting Verified 03/25/24 20:02
Home Medications
�Medication �Instructions �Recorded �Confirmed �Last Taken �Type
L.acidoph, paracasei,B. lactis 10 1 ea PO DAILY Supplement 06/05/20 03/23/24 03/22/24 08:00 History
billion cell capsule
aspirin 81 mg tablet,delayed 81 mg PO DAILY Blood clot 06/05/20 03/23/24 03/22/24 17:00 History
release prevention/tx
carboxymethylcellulose sodium 0.25 15 ml OP BID 06/05/20 03/23/24 03/22/24 22:00 History
% eye drops (TheraTears)
cyanocobalamin (vitamin B-12) 1,000 mcg PO DAILY Supplement 06/05/20 03/23/24 03/22/24 08:00 History
1,000 mcg tablet
folic acid 400 mcg tablet 0.4 mg PO DAILY Supplement 06/05/20 03/23/24 03/22/24 08:00 History
levothyroxine 75 mcg tablet 75 mcg PO DAILY Thyroid 06/05/20 03/23/24 03/22/24 08:00 History
milk thistle 500 mg capsule 500 mg PO QPM Supplement 06/05/20 03/23/24 03/22/24 13:00 History
nitroglycerin 0.4 mg sublingual 0.4 mg sublingual [id number] PRN 06/05/20 03/23/24 11/07/23 14:00 History
tablet chest pain
phytonadione (vitamin K1) 100 mcg 100 mcg PO DAILY Supplement 06/05/20 03/23/24 03/22/24 08:00 History
tablet
vitamin E (dl, acetate) 45 mg (100 100 units PO QPM Supplement 06/05/20 03/23/24 03/22/24 17:00 History
unit) capsule
cholecalciferol (vitamin D3) 125 125 mcg PO DAILY Supplement 11/10/23 03/23/24 03/22/24 08:00 History
mcg (5,000 unit) tablet (Vitamin
D3)
citalopram 10 mg tablet (Celexa) 10 mg PO DAILY Mental 11/10/23 03/25/24 03/22/24 17:00 History
Health/Anxiety
coenzyme Q10 150 mg capsule 150 mg PO DAILY 11/10/23 03/23/24 03/22/24 17:00 History
losartan 50 mg tablet 50 mg PO DAILY 11/10/23 03/23/24 03/23/24 06:45 History
omega-3 fatty acids-fish oil 684 1 cap PO QPM 11/10/23 03/23/24 03/22/24 17:00 History
mg-1,200 mg capsule,delayed release
nifedipine 90 mg tablet,extended 90 mg PO DAILY #30 tabs 11/11/23 03/23/24 03/22/24 13:00 Rx
release 24 hr
clopidogrel 75 mg tablet (Plavix) 75 mg PO DAILY Blood Clot 03/23/24 03/23/24 03/23/24 06:45 History
Prevention/Tx
hydralazine 50 mg tablet 50 mg PO TID 03/23/24 03/23/24 Unknown History
alprazolam 0.25 mg tablet 0.25 mg PO DAILYPRN PRN anxiety 03/25/24 03/25/24 Unknown History
Review of Systems
-
History Source: Patient
All other systems: Negative unless noted
Vitals / Labs / Diagnostic Testing
Vital Signs
Temp Pulse Resp BP Pulse Ox
97.8 F 76 21 167/80 96
03/26/24 07:00 03/26/24 05:45 03/26/24 05:45 03/26/24 05:45 03/26/24 05:45
Lab Data
03/26/24 03:29
03/26/24 03:29
Laboratory Results
03/26/24
03:29
APTT 64.9 H
Microbiology
03/25/24 17:45 Nasal Swab Influenza Types A & B (MITCH) - Final
Negative for Influenza A & B, NAAT
Negative results must be combined with clinical observations
and patient history.
Nucleic Acid Amplification test (NAAT)performed on the
[employer] platform.
Diagnostic Testing:
Physical Exam
-
HEENT: Normocephalic, Anicteric and Moist Mucous Membranes
Cardiovascular: S1/S2 and Regular Rhythm
Respiratory: Clear and Non-Labored Respirations
GI: Soft, Non Distended and Non Tender
Neurology: Awake, Alert, Oriented and No Motor Deficits
Skin: Warm, Dry and Good Color
General: Comfortable and Other (NAD)
Assessment
-
Patient is an 83-year-old female with previous history of CAD status post PCI 2019, hypertension, hyperlipidemia originally presenting to outside hospital for stroke underwent SILVER demonstrating 1.0 x 1.8 cm mobile echodensity. She was then
transferred to for CT surgery evaluation on 03/23/2024. Overnight developed confusion, aphasia a stroke alert was called. BP was notably increasing to above 180 systolic, she is placed on nicardipine drip and transferred to ICU for further
management.
Hypertensive emergency
Acute CVA
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
Leukocytosis
Hyponatremia, mild
Metabolic acidosis
Hyperglycemia
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
AR
HTN
CAD s/p PCI 2019
HLD
Plan
W/u for CVA ongoing, neuro following
MRI reviewed with findings
Denies pain at this time.
Pain/sedation: PRN
RASS goals: 0
Hemodynamically stable, not requiring pressors.
Cardiac history reviewed--poorly controlled HTN
Now off cardene, resumed on meds, IV PRN for SBP >160
Prior ECHO reviewed indicating myxoma, CTS to eval for OR
Monitor on telemetry
Oxygen needs: stable on RA
Prior history of lung disease: none
Supplemental O2 as indicated to maintain sats > 89%
CXR/CT reviewed indicating NAD
Advance diet as tolerated
Wire Rope Sales Representative recommendations
Aspiration precautions, HOB > 30 degrees
Speech therapy eval
GI prophylaxis if indicated
Creat at baseline, no history of renal disease
Void trials
Follow urine output, critical I/Os
Replete electrolytes as needed
No signs/symptoms suspicious for infectious etiology at this time
Observe off antibiotics for now
Follow fever trend, WBC count
CBC stable, no signs of bleeding or coagulopathy.
DVT prophylaxis as assessed based on risk, including mechanical SCDs
Can transfuse if indicated for Hb <7, plt < 10
INR WNL
No prior h/o diabetes or thyroid disease
Monitor accuchecks PRN/SS coverage if needed
Can likely transfer out of ICU if off cardene. We will see postop in CVICU.
Diagnostic Data
Chest X-Ray: 03/25/24- Low lung volumes with minor bibasilar opacity most likely representing subsegmental atelectasis.
CT Scan: CTA H&N 03/25/24- No significant vascular occlusion, aneurysm or dissection.
Brain MRI 03/25/24- There are multiple small foci of restricted diffusion involving the bilateral cerebellar hemispheres, right hippocampus, left temporal lobe, right occipital lobe and right frontal lobe consistent with multifocal acute infarctions,
possibly embolic. Additionally there is a 7 mm focus of diffusion hyperintense signal with normalized ADC within the left globus pallidus, likely a subacute infarction.
Echo: 03/25/24- Follow up echo to assess echodensity associated with mitral valve. There is a 0.9 cm x 1.1 cm echodensity associated with the posterior mitral valve leaflet.
A pedunculated mobile component, which measured approximately 1.1 x 1.2 cm and was visualized on prior TTE 03/23/24, is no longer visualized.
[facility] 11/10/23- 1. Successful IFR of the tandem 40% mid RCA lesions demonstrating nonocclusive disease (IFR = 0.94).
PFT's:
Reports and relevant images were personally reviewed.
-----
Critical care time 60 mins -- this includes review of history, physical exam, medications, hemodynamic/ventilator parameters, laboratory data, imaging and discussion with house staff, pharmacy, respiratory therapy, spindle plumber, and nursing.
--- NOTE | 2024-03-26 07:45 | W.PN.HOSP.TC ---
Addendum entered and electronically signed by Kellee Freeman MD 03/26/24 08:03:
confirmed with neurology goal BP 140-160 - monitor BP and resume home meds if becomes hypertensive
Original Note:
Today's Communication/Plan
-
see plan
Assessment / Plan
Assessment / Plan
Ms. Edith Hollingsworth is a 83 yo woman with hx CAD s/p PCI 2020, essential HTN, Hypothyroidism, HLD, recent admission to outside hospital for CVA s/p elective SILVER on 03/23/24 for further work-up found to have a 1.0 x 1.8cm mobile echodensity on mitral
valve admitted to cardiology service with plans for CT Surgery on Friday. Hospital course complicated by new expressive and receptive aphasia today.
SILVER 03/23/24
CONCLUSIONS
-Left ventricular ejection fraction is 60-65%. Normal regional wall motion.
-No thrombus detected in the left atrial appendage.
-Moderately thickened posterior mitral valve leaflet with a large, mobile,
echodensity on the ventricular surface of the posterior leaflet measuring
approximately 1.2 x 1.8 cm. 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
differential diagnosis should also include vegetation, thrombus, or other
intracardiac mass.
-Mild mitral regurgitation.
-At least mild to moderate aortic regurgitation.
-At least mild to moderate tricuspid regurgitation.
TTE 03/25/24
CONCLUSIONS
Follow up echo to assess echodensity associated with mitral valve.
There is a 0.9 cm x 1.1 cm echodensity associated with the posterior mitral
valve leaflet.
A pedunculated mobile component, which measured approximately 1.1 x 1.2 cm and
was visualized on prior TTE 03/23/24, is no longer visualized.
CT Head 03/25/24
IMPRESSION:
No acute intracranial abnormality noted.
Head/Neck CTA 03/25/24
IMPRESSION: No significant vascular occlusion, aneurysm or dissection.
Acute embolic strokes
Receptive and Expressive Aphasia
TME
-acute change in mentation on 03/25 with stat repeat MRI showing new embolic strokes, small. Per neuro, continue IV heparin gtt; improvement this morning - acute delirium may have also been contributing
-infectious work-up thus far negative (flu, covid, procal, CXR, UA). F/U blood cultures
-hold off on antibiotics - no clear signs of bacterial infection at this point
Hypertensive Urgency
-nicardipine gtt initiated evening 03/25 and patient was transferred to ICU, can likely transfer out today
-Gluing Machine Offbearer consult
-*confirming with neuro OK to resume BP regimen
CVA 03/16 - She had left sided weakness and MRI findings of bilateral embolic infarctions; deficit on this admission was double vision (patient does not want an eye patch)
Mitral Valve Mobile Echodensity
-plan is to go to OR post Plavix Washout
-continue aspirin
-continue Heparin gtt
-appreciate neurology
-appreciate cardiology
Essential Hypertension
-confirming with neuro OK to resume Nifedipine and Losartan
DVT PPx Hep gtt
51 minutes spent on patient care
Anticipated Discharge: > 48 hours
Subjective/Interval History
-
Date of Service: March 26, 2024
patient appears much improved from yesterday
she is able to tell me where she is
denies chest pain or shortness of breath
Objective Data
-
Labs:
Laboratory Results
03/26/24 03/26/24
03:29 10:30
WBC 23.4 H
Hgb 12.8
Hct 35.9 L
Plt Count 237
APTT 64.9 H Pending
Sodium 130 L
Potassium 4.4
Chloride 100
Carbon Dioxide 21 L
BUN 17
Creatinine 0.7
Glucose 138 H
Calcium 9.3
Vital Signs:
Vital Signs
Temp Pulse Resp BP Pulse Ox
97.8 F 76 21 167/80 96
03/26/24 07:00 03/26/24 05:45 03/26/24 05:45 03/26/24 05:45 03/26/24 05:45
I&O
03/25/24 03/26/24 03/27/24
06:59 06:59 06:59
Intake Total 324 / 324 121 / 129
Output Total 200 / 200 600 / 600
Balance 124 / 124 -479 / -471
Review of Systems
-
History Source: Patient
All other systems: Reviewed and negative
Physical Exam
-
General: No Apparent Distress
HEENT: PERRLA
Respiratory: Clear to Auscultation; Negative Wheezes
Cardiac: S1/S2 and Murmur
GI: Soft and Nontender
Musculoskeletal: No Edema
Neuro: Other (AAO x 3, appears less confused, speech clear, following commands, no pronator drift, no facial droop (keeps left eye closed 2/2 blurry vision))
Psych: Calm
Data Reviewed
-
Diagnostic Radiology: Report Reviewed by me
Labs: Labs Reviewed by me
--- NOTE | 2024-03-26 07:47 | PTCARENOTE ---
pt received from previous rn- aox3, nih 0- pt complaining of double vision squinting left eye per Dr. Freeman- pt did not complain of double vision to RN, refusing eye patch. Per Dr. Freeman pt with double vision from previous stroke. pt able to make
all needs known, proper use of call jain, restraints removed. nsr with lbbb on monitor. room air, lungs diminished. pt with constipation, Dr. Freeman aware- see mar. all safety precautions in place, call jain within reach. bed alarm on- tested and
functioning.
--- NOTE | 2024-03-26 08:02 | PTCARENOTE ---
pt received from previous rn- aox3, nih 0- pt complaining of double vision squinting left eye per Dr. Freeman (see her note)- pt did not complain of double vision to RN, refusing eye patch. pt able to make all needs known, proper use of call jain,
restraints removed. nsr with lbbb on monitor. room air, lungs diminished. pt with constipation, Dr. Freeman aware- see mar. all safety precautions in place, call jain within reach. bed alarm on- tested and functioning.
--- NOTE | 2024-03-26 08:18 | PN.CDI ---
CDI
- -
CDI:
Physician Documentation Request
Admit Date: 03/23/24 11:00
Dear Doctor Lydia,
Please review the following and provide your response in the progress notes.
Clinical Indicators:
PN, 03/25
#...hx essential HTN, ...
#TME
#Receptive and Expressive Aphasia
-She is hypertensive to 190's on heparin gtt so started on nicardipine gtt with goal SBP < 180
-discussed with neurology and patient requires stat MRI to help determine if new stroke especially with repeat echo finding
#Hypertensive Urgency
#-nicardipine gtt as above
#-transfer to ICU
Please clarify which, if any of the following, is a more accurate diagnosis reflecting the type and acuity of the documented hypertension:
Hypertensive Emergency - B/P is severely elevated (systolic > or = to 180 or diastolic > or = to 110) but can occur at lower levels especially in patients who did not previously have high B/P. There is usually associated organ damage. Symptoms may
include: memory loss, LOC, CVA, [place], angina, renal failure, pulmonary edema. Generally requires more aggressive treatment and a hospitalization.
Hypertensive Crisis - an acute elevation in B/P that can lead to organ damage. Broad term that is further differentiated to include urgency or emergency based on presence of organ damage.
Hypertensive Urgency - B/P is severely elevated (systolic > or = to 180 or diastolic > or = to 110) but there is no associated organ damage. Symptoms may include: headache, shortness of breath, nosebleeds, severe anxiety. Treatment usually consists
of addition to or adjusting of oral medications and does not generally necessitate hospitalization.
Other (please specify)
Use of terms such as suspected, likely, concern for, or probable (associated with a specific diagnosis that is being evaluated, monitored, or treated as if it exists) are acceptable and can be coded in the inpatient setting, when documented at the
time of discharge.
Thank you,
Natasha Patten RN BSN CCDS
CDI Specialist
please contact via tiger text
Please use your independent medical judgment in providing your response.
--- NOTE | 2024-03-26 08:24 | PN.CDI ---
CDI
- -
CDI:
Physician Documentation Request
Admit Date: 03/23/24 11:00
Dear Doctor Lydia,
Please review the following and provide your response in the progress notes.
Clinical Indicators:
Laboratory Tests
03/24/24 03/25/24 03/26/24
02:45 18:46 03:29
Sodium 135 131 L 130 L
Based on the above, please clarify in the progress notes, the appropriate diagnosis, if significant, that supports the above abnormalities and additional evaluation, monitoring and/or treatment rendered:
Hyponatremia
Abnormal lab value, clinically insignificant
Other (please specify)
Use of terms such as suspected, likely, concern for, or probable (associated with a specific diagnosis that is being evaluated, monitored, or treated as if it exists) are acceptable and can be coded in the inpatient setting, when documented at the
time of discharge.
Thank you,
Natasha Patten RN BSN CCDS
CDI Specialist
please contact via tiger text
Please use your independent medical judgment in providing your response.
--- NOTE | 2024-03-26 08:47 | W.PN.CD ---
Today's Communication / Plan
-
SILVER today
heparin drip
cardene drip while NPO
Impression / Plan
-
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 Donovan, her primary Radiological Technologist) with hypertension and hypothyroidism who underwent elective SILVER today for recent stroke and was managed at an outside hospital; an outpatient SILVER/ILR was recommended by that
Institution. Plan was for a SILVER/ILR today, but the patient was found to have a 1.0 x 1.8 cm mobile echodensity on the ventricular surface of the mitral valve on the SILVER; therefore, the subsequent ILR was canceled. Patient admitted to Cardiology
service to undergo CT Surgery evaluation. Patient was on aspirin/Plavix for recent CVA, as per Neurology.
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
-initial plan for OR Friday following Plavix washout
-however, significant waxing/waning mental status 03/25, and repeat TTE unable to visualize mobile component of mitral valve echodensity
-continues on heparin drip with monitoring of Hgb
-CTA did not show evidence of vascular occlusion
-brain MRI pending
Labile hypertension:
-now on cardene drip due to mental status/NPO from yesterday
-eventual transition back to PO meds (nifedipine, hydralazine); hold ARB for potential OR Friday
Altered mental status
-seems back to baseline, with no focal deficits
-seizure is on Ddx per neurology
-infectious eval per hospitalist team
-brain MRI pending
Aortic regurgitation:
-Mild on TTE.
CAD, last stent 2019 to LAD
-stable, no angina
-cont ASA 81mg daily
-statin intolerant
LBBB
-seems rate dependent
Cath 11/10/2023 CORONARY ANGIOGRAPHY
Dominance: Right.
Left Main: Normal size, trifurcating vessel. There is no coronary artery disease.
LAD: Normal size vessel giving rise to 1 significant diagonal. A patent stent is visible in the mid vessel with no evidence of in-stent restenosis.
Ramus:Medium size vessel supplying the majority of the lateral wall. There is no coronary artery disease.
Circumflex: Normal size, nondominant vessel, essentially a single large marginal supplying the inferolateral wall. There is a 30% lesion in the ostium of the vessel.
RCA: Normal size, dominant vessel. There are tandem 40% lesions in the mid vessel.
INTERVENTION(S)
1. Successful IFR of the tandem 40% mid RCA lesions demonstrating nonocclusive disease (IFR = 0.94).
Physical Exam
Vital Signs/Labs
Vital Signs
Temp Pulse Resp BP Pulse Ox
97.8 F 73 23 148/62 97
03/26/24 07:00 03/26/24 07:45 03/26/24 07:45 03/26/24 07:45 03/26/24 07:51
03/25/24 03/26/24 03/27/24
06:59 06:59 06:59
Actual Weight 69.8 kg
03/26/24 03:29
03/26/24 03:29
PT 13.5 Sec (11.4-14.6) 03/24/24 02:45
INR 1.04 03/24/24 02:45
APTT 64.9 Sec (23.4-35.0) H 03/26/24 03:29
Magnesium 1.8 mg/dl (1.6-2.3) 03/26/24 03:29
Physical Exam
Constitutional: No acute distress and Comfortable
EENT: Moist mucous membranes
Cardiovascular: Rhythm & rate is regular, JVD pressure is normal and Systolic murmur absent
Respiratory: Respiratory effort normal and Lungs clear to auscul.
Neuro/Psych: Alert and Oriented
Data Reviewed
-
Date of Service: March 26, 2024
EKG: Other (Tele: SR 80s)
Labs: Labs Reviewed by me
[2024-03-26] MEDS: SENOKOT-S 1 TABLET PO (08:53)
[2024-03-26] MEDS: REFRESH CELLUVISC GEL 1 DROPS OPHTH ×2 (08:53→19:45)
[2024-03-26] MEDS: VITAMIN B1 200 MG PO (08:53)
[2024-03-26] MEDS: VITAMIN D3 (cholecalciferol) 125 MCG PO (08:53)
[2024-03-26] MEDS: CELEXA 10 MG PO (08:53)
[2024-03-26] MEDS: ASPIR LOW (ENTERIC COATED) 81 MG PO (08:54)
--- NOTE | 2024-03-26 09:31 | PTCARENOTE ---
pt assisted with am care, 1x assist oob to chair, pt with large bm. report given to boat laborer rn.
--- NOTE | 2024-03-26 10:02 | EEG.RPT ---
Electroencephalogram Report
Recording
Date of EE03/26/24
Type of EEG: Routine
Length of EEG recordin mins
Done with Video Recording: Yes
Patient Status: Inpatient
Recording Conditions: Awake and Drowsy
Hyperventilation Performed: No
Photic Stimulation Performed: Yes
Report
METHODS
A 21 channel digitized electroencephalogram was performed at [facility]. The 10/20 international system of electrode placement was used. In addition to EEG, the patient was monitored for EKG. The duration of the recording was 28 minutes.
BACKGROUND
During the awake state, with the eyes closed, the background consisted of diffuse slowing to 4-5Hz frequencies.
PHOTIC STIMULATION
Photic stimulation using a step-barr increase in photic frequency varying from 1-31 Hertz resulted in no driving responses but no appearance of abnormal activity.
CLINICAL EVENTS
None
.
INTERPRETATION AND CLINICAL CORRELATION
The background consisted of moderate diffuse slowing consistent with moderate cerebral dysfunction, nonspecific in etiology. No clear seizures were noted.
[2024-03-26 10:52] LABS: APTT 128.2 Sec (23.4-35.0)
--- NOTE | 2024-03-26 11:01 | W.PN.UPDATE ---
Update Note
Progress Note Update
Patient was seen this morning. Patient was more alert compared to yesterday. However, she was taken to the greens laborer for a repeat SILVER. Unfortunately, the mass was no longer observed on echo. A multidisciplinary team discussion was had with cardiology
and it was decided that she was no longer a surgical candidate. She should continue anticoagulation and antiplatelet medications. CT surgery will sign off at this time.
--- NOTE | 2024-03-26 11:15 | CM ---
Patient for possible return to IVU per physician. CM will continue to follow for discharge planning needs.
Plan; [facility]; pending bed availability/acceptance. will need referral
[2024-03-26] MEDS: COZAAR 50 MG PO (11:20)
[2024-03-26] MEDS: PROCARDIA XL (EXTENDED RELEASE) 90 MG PO (11:20)
--- NOTE | 2024-03-26 11:52 | PTCARENOTE ---
pt back fr woods laborer, remains oob to chair, plan of care discussed with Dr. Peters. assessment unchanged.
--- NOTE | 2024-03-26 12:30 | PTCARENOTE ---
pt noted with left field cut during speech therapy, Dr. Freeman and Dr. Matson aware- no further orders. rn in to reassess pt, noted left field cut. nih 1. assessment unchanged further.
--- NOTE | 2024-03-26 12:33 | PTCARENOTE ---
pt noted with left field cut during speech therapy, Dr. Freeman and Dr. Matson aware- no further orders. rn in to reassess pt, noted left field cut. nih 2 due to field cut. assessment unchanged further.
[2024-03-26] MEDS: NSS 500 IV (14:00)
--- NOTE | 2024-03-26 14:01 | PTCARENOTE ---
pt orthostatic during PT consult, Dr. Freeman and Dr. Peters aware, ivfb ordered
--- NOTE | 2024-03-26 14:17 | PTOTSP ---
CREDIT AND COLLECTION MANAGER Evaluations
Oral/pharyngeal swallow suspected to be grossly WFL based on clinical bedside swallowing evaluation. Cannot rule out silent aspiration bedside. If clinical signs concerning for aspiration complications noted, consider video swallow study given
risk factors (i.e., multiple strokes including acute right sided strokes this admission).
Quick Aphasia Battery Form 1 QAB overall=6.15/10 concerning for a moderate aphasia impacting all language domains. However, score negatively skewed by changes to attention/vision on the left. Consider repeat testing with test that does not present
visual items. Strongly suspect cognitive linguistic impairment (attention, memory, processing) as well as changes to complex auditory comprehension and mild word finding deficits with confrontational naming.
Recommend:
1. Regular, Thin Liquids
2. Supervision and assistance given changes to vision
3. Continue assessment of language and cognition at the acute care level and after D/C from acute care.
[2024-03-26] MEDS: APRESOLINE PO ×2 (15:15→22:05)
--- NOTE | 2024-03-26 16:33 | CON.MD ---
Consultation - Medical
-
WhoReferring Provider:�Dr. Kellee Freeman
Chief Complaint:�Stroke
�
History of Present Illness:�83-year-old right-handed female with PMH (as below) presented to [facility] on 03/23/2024 for elective SILVER as part of an ongoing workup with recent stroke. 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
mitral regurgitation and was sent to the hospital for cardiothoracic surgery evaluation. Was planned to have mitral valve echodensity removed surgically. On 03/25/2024 she had an episode of confusion with nonresponsiveness and loss of
consciousness. 04/21/2024 repeat evaluation of the mitral valve echodensity was no longer present and so surgery canceled. Overnight 03/25 into 03/26 patient developed confusion and aphasia and a stroke alert was called with hypertension requiring
make Cardene drip and transferred to the ICU. SILVER on 03/26/2024 noting an EF of 55-60%. EEG on 03/26 with diffuse slowing consistent with moderate cerebral dysfunction, nonspecific in etiology with no clear seizures noted. Had episode of
orthostasis in therapy on 03/26/2024 but limiting a full evaluation. Blood pressure did better and patient clinically became responsive in a Trendelenburg position.
Overall she is feeling lightheaded with standing earlier in therapy and then standing to get to the bathroom.
�
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
Procedure History:�LAD PCI 2019
Family History:�Noncontributory
�
Social History:�
Functional Level Premorbidly:�Independent with most activities, has help with a cleaning service.
Functional Level Currently:�Regular thin liquid diet per speech. With moderate aphasia impacting all language domains. Therapy limited by episode of orthostasis. Max assist stand to sit, min assist sit to stand.
�
Tobacco:�Denies�
Alcohol:�Denies�
Drug use:�Denies�
�
Lives with:�Spouse in an independent living apartment
24-hour assistance available:�Yes
Number of floors:�1
# steps to enter:�0
Driving:�Yes
Occupation:�Retired
�
�
Allergies:�
Allergy/AdvReac Type Severity Reaction Status Date / Time
levofloxacin [From Levaquin] Allergy Unknown Verified 11/10/23 10:46
mold Allergy sinus Verified 11/10/23 10:46
problems
Penicillins Allergy sore Verified 11/10/23 10:46
throat and
tongue
Sulfa (Sulfonamide Allergy Throat Verified 03/25/24 20:02
Antibiotics) burning
Beta-Blockers AdvReac Nearly Verified 03/25/24 20:02
(Beta-Adrenergic Bloc coded from
severe
bradycardia
oxycodone [From Percocet] AdvReac Vomiting Verified 03/25/24 20:02
�
Review of Systems:�
Constitutional: (x) abNormal _fatigue
Eye: (x) Normal _
Ear/Nose/Throat: (x) Normal _
Respiratory: (x) Normal _
Cardiovascular: (x) abNormal _blood pressure was elevated now dropping low with Handy is get a pass out
Gastrointestinal: (x) Normal _
Genitourinary: (x) Normal _
Musculoskeletal: (x) Normal _
Integumentary: (x) Normal _
Neurologic: (x) abNormal _stroke
Psychiatric: (x) Normal _
Endocrine: (x) Normal _
Hematologic/Lymphatic: (x) Normal _
Allergic/Immunologic: (x) Normal _
�
Medications:�
Active Current Visit Medication List
Category Date Time Status
Acetaminophen [Tylenol/Feverall] Med 03/25/24 17:28 Active
650 mg RECTAL Q4HPRN PRN
Acetaminophen [Tylenol] Med 03/25/24 17:28 Active
650 mg PO Q4HPRN PRN
Apixaban [Eliquis] Med 03/26/24 20:00 Active
5 mg PO BID
Aspirin Low Dose EC [Aspir Low (Enteric Coated)] Med 03/24/24 08:00 Active
81 mg PO DAILY
Bisacodyl [Dulcolax] Med 03/26/24 07:49 Active
10 mg RECTAL DAILYPRN PRN
Carboxymethylcellulose [Refresh Celluvisc Gel] Med 03/23/24 20:00 Active
1 drops OPHTH BID
Cholecalciferol (Vitamin D3) [VITAMIN D3 ( Med 03/24/24 08:00 Active
cholecalciferol)]
125 mcg PO DAILY
Citalopram [Celexa] Med 03/26/24 08:00 Active
10 mg PO DAILY
Docusate W/Senna [Senokot-S] Med 03/23/24 10:04 Active
1 tablet PO BIDPRN PRN
Famotidine [Pepcid] Med 03/26/24 22:00 Active
20 mg PO HS
Flush (0.9% Sodium Chloride) [Flush (Nss)] Med 03/25/24 18:00 Active
See Dose Instructions IV PER PROTOCOL
Heparin 93593 Units/250 ml Med 03/23/24 13:45 Active
25,000 units in 250 ml IV PER PROTOCOL
HydrALAZINE [Apresoline] Med 03/24/24 16:00 Active
25 mg PO TID
HydrALAZINE [Apresoline] Med 03/26/24 12:28 Active
5 mg IV Q4HPRN PRN
Levothyroxine [Synthroid] Med 03/24/24 06:00 Active
75 mcg PO DAILY@0600
Losartan [Cozaar] Med 03/26/24 11:00 Hold
50 mg PO DAILY
NIFEdipine EXTENDED RELEASE [Procardia Xl (Extended Med 03/23/24 11:00 Hold
Release)]
90 mg PO DAILY
Polyethylene Glycol Powder [Miralax] Med 03/23/24 10:04 Active
17 grams PO DAILYPRN PRN
Thiamine HCl [Vitamin B1] Med 03/25/24 22:40 Active
200 mg PO DAILY
�
Vitals:�
Temp Pulse Resp BP Pulse Ox
97.7 F 74 20 105/87 94
03/26/24 14:52 03/26/24 16:00 03/26/24 16:00 03/26/24 16:00 03/26/24 16:00
Height 5 ft 5 in
Actual Weight 69.8 kg
Body Mass Index (BMI) 25.6
�
Physical Exam:�
General Appearance/Observation: Well-developed, well-nourished female in no apparent distress.�
Pain/Comfort Assessment: Denies�
Mood/Affect: Appropriate�
�
Integumentary/Operative Site:�No lesions noted during course of exam
�
Eyes: Conjunctiva/Lids: normal���� Pupils: pupils equal round and reactive to light and Accommodation�
Ears/Nose/Throat: oral mucosa moist,� throat clear.������������ Lips/Teeth/Gums: normal�
Neck: No muscle spasm or tenderness�
Cardiovascular: Heart: regular, no murmur�
Pulses: dorsalis pedis 2+ bilaterally�
Respiratory: Respiratory Effort/Chest Expansion: normal������� Auscultation: Clear to auscultation bilaterally�
Gastrointestinal: abdomen not tender, no distension, normal abdominal bowel sounds
Genitourinary: No Avina�
Extremities:�Edema: None�Cyanosis: None�Trophic�changes: None
�
Neurology Exam:
Orientation: Alert, Oriented to self, Time, Place�
Memory: Intact for recent medical concerns
Repetition: Intact
Comprehension: Intact
Two step command: Intact
Cranial Nerves:
�� CNII:�Pupillary light reflex: Intact����Visual Field: Left homonymous hemianopsia versus inattention
�� CN III, IV, : Extraocular muscles: Intact�
�� CN V:�Facial Sensation�at�Forehead: Intact,�Maxilla: Intact,�Mandible: Intact
�� CN VII:�Facial movement: Symmetric
�� CN VIII:�Hearing: Normal
�� CN IX/X:�Speech & swallow: Normal,�Position of Uvula: Midline
�� CN XI:�Shoulder shrug: Symmetric
�� CN XII:�Tongue protrusion: Midline
Sensory:
�� Light touch: Intact in bilateral upper and lower extremities, no extinction to double simultaneous stimulation
�
Reflexes:
�� Biceps: 2+ bilaterally
�� Brachioradialis: 2+ bilaterally
�� Triceps: 2+ bilaterally
�� Patellar: 2+ bilaterally
�� Achilles: 2+ bilaterally
�� Babinski: Down going bilaterally
�� Clonus: None
�� Daniela: Negative bilaterally�
Cerebellar: Dysmetria/Ataxia: None�
Musculoskeletal: Motor: (Manual muscle scale 0-5)�
Muscle SA EF WE EE FF FA HF KE DF EHL PF
Right� 5 5 5 5 5 4 4 5 5 5 5
Left 5 5 5 5 5 4 4 5 5 5 5
�
Tone: Normal in all extremities�
Range of Motion: Passively within normal limits in all extremities�
�
Lab Results
Laboratory Data
03/26/24 03:29
03/26/24 03:29
PT 13.5 Sec (11.4-14.6) 03/24/24 02:45
INR 1.04 03/24/24 02:45
APTT 128.2 Sec (23.4-35.0) H 03/26/24 10:33
Total Bilirubin 0.9 mg/dl (0.2-1.3) 03/25/24 18:46
Direct Bilirubin 0.1 mg/dl (0.0-0.4) 03/24/24 02:45
AST 43 U/L (14-36) H 03/25/24 18:46
ALT 23 U/L (0-35) 03/25/24 18:46
Alkaline Phosphatase 68 U/L (38-126) 03/25/24 18:46
Total Protein 6.9 g/dl (6.3-8.2) 03/25/24 18:46
Albumin 4.5 g/dl (3.5-5.0) 03/25/24 18:46
�
Diagnostic Results:�as per HPI�
�
Assessment
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
valve mass with mild mitral regurgitation plan for surgery until a presumably broke apart causing bilateral embolic strokes with ADL, ambulatory, and speech dysfunction.
�
Plan�
PM&R�PT/OT to increase independence with ADLs, improve balance, coordination, endurance, strength, mobility, community reintegration, decreased burden of care on others and family education.�
�
CVA: Secondary prophylaxis with aspirin and Eliquis, intolerant of statin, and blood pressure control (SBP less than 180 and diastolic less than 100 to participate with therapy for ischemic stroke). Continue to monitor neurologic status.�
Left homonymous hemianopsia versus inattention: makes patient at increased risk for falls.� Will need therapy to work on scanning of environment for safe navigation.�
Aphasia: speech �
�
Uncontrolled HTN: Hydralazine, monitor closely. Had significant hypotensive episode on nifedipine, losartan, hydralazine. Likely an orthostatic issue as it happened when she was up in therapy. Check orthostatics, monitor for supine hypertension.
Consider TEDS
HLD: Not on statin�
Coronary artery disease�: Aspirin, no statin with intolerance statin, not on beta-liane�
Atrial fibrillation:�Apixaban anticoagulation and no rate control medications.�������������������������������������������
Hypothyroidism: levothyroxine�
Leukocytosis: Unclear etiology, chest x-ray and urine analysis without concern, monitor.�
Psych: Psychology consult.� Monitor mood, adjust Xanax and citalopram as needed.�
Skin: monitor for pressure sores/rashes/lesions.�
Pain: acetaminophen as needed.�
Bowel: Colace and Senna, PRN bisacodyl.�
Bladder: Time void, PVRs, PRN straight cath.�
GI Prophylaxis: Famotidine
DVT Prophylaxis: Mechanical and Eliquis.�
Pulmonary: Incentive spirometry�
Safety: Continue to reinforce assistance with all transfers.�
Code Status:� Full code
Dispo�(date/plan/equipment needs): Home with family care.� Social history reviewed.�
Functional and Medical Goals:�Modified Independent with ADL�s, ambulation, transfers�
Discharge Destination:�Anticipate acute inpatient rehabilitation when blood pressure is better stabilized, white count is trending down, and patient is stable.
A total of 60 minutes were spent with the patient preparing for the evaluation, obtaining history, performing examination and evaluation, counseling, data review, case management, care coordination, order expediter, and EMR documentation.� Discussed
with neurology and nurse as well as patient.
Summary of recommendations:
-�Discharge Destination:��Anticipate acute inpatient rehabilitation when blood pressure is better stabilized, white count is trending down, and patient is stable.
CVA: Secondary prophylaxis with aspirin and Eliquis, intolerant of statin, and blood pressure control (SBP less than 180 and diastolic less than 100 to participate with therapy for ischemic stroke). Continue to monitor neurologic status.�
Left homonymous hemianopsia versus inattention: makes patient at increased risk for falls.� Will need therapy to work on scanning of environment for safe navigation.�
Aphasia: speech �
�Uncontrolled HTN: Hydralazine, monitor closely. Had significant hypotensive episode on nifedipine, losartan, hydralazine. Likely an orthostatic issue as it happened when she was up in therapy. Check orthostatics, monitor for supine hypertension.
Consider TEDS
�
Thank you for allowing me to care for your patient. Please contact me with any questions or concerns.
--- NOTE | 2024-03-26 16:35 | PTCARENOTE ---
pt on bedside commode- pt with another vagal episode- Dr. Peters and Dr. Freeman aware- pt ordered to stay in ICU
--- NOTE | 2024-03-26 16:54 | W.PN.NEURO.1 ---
Today's Communication / Plan
-
Continue IV heparinization
Serial neuroexams
Blood pressure management
Neuro Assessment/Plan
Assessment
83-year-old female with h/o hypertension and hypothyroidism embolic stroke who had mobile echodensity on the ventricular surface of the mitral valve on the SILVER;. Patient admitted to Cardiology service and to undergo evaluation for cardiothoracic
surgery
Pat on Heparin IV preop. She was in usual state of health till this morning when she had a brief episode of confusion that has resolved CT head was within normal limits
Plan
Continue IV heparin.
Continue current cardiac management
May proceed with cardiothoracic surgery as scheduled if echo consistent with intracardiac mass
MRI of the brain
EEG
Subjective/Objective
Subjective Data
Date of Service: March 26, 2024
Patient is doing well on IV heparin
Objective Data
Vital Signs
Temp Pulse Resp BP Pulse Ox
36.5 C 74 20 105/87 94
03/26/24 14:52 03/26/24 16:00 03/26/24 16:00 03/26/24 16:00 03/26/24 16:00
Lab Results
03/26/24 03:29
03/26/24 03:29
PT 13.5 Sec (11.4-14.6) 03/24/24 02:45
INR 1.04 03/24/24 02:45
APTT 128.2 Sec (23.4-35.0) H 03/26/24 10:33
Sodium 130 mmol/L (135-145) L 03/26/24 03:29
Potassium 4.4 mmol/L (3.5-5.1) 03/26/24 03:29
BUN 17 mg/dl (7-17) 03/26/24 03:29
Glucose 138 mg/dl (70-99) H 03/26/24 03:29
Calcium 9.3 mg/dl (8.4-10.2) 03/26/24 03:29
Patient Allergies
levofloxacin [From Levaquin] Allergy (Verified 11/10/23 10:46)
Unknown
mold Allergy (Verified 11/10/23 10:46)
sinus problems
Penicillins Allergy (Verified 11/10/23 10:46)
sore throat and tongue
Sulfa (Sulfonamide Antibiotics) Allergy (Verified 03/25/24 20:02)
Throat burning
Beta-Blockers (Beta-Adrenergic Bloc Adverse Reaction (Verified 03/25/24 20:02)
Nearly coded from severe bradycardia
oxycodone [From Percocet] Adverse Reaction (Verified 03/25/24 20:02)
Vomiting
--- NOTE | 2024-03-26 17:23 | PTCARENOTE ---
Dr. Matson at bedside- ordered to keep bp systolic goal 140-160
[2024-03-26 17:33] LABS: APTT 67.9 Sec (23.4-35.0)
[2024-03-26] MEDS: ELIQUIS 5 MG PO (19:45)
--- NOTE | 2024-03-26 20:00 | PTCARENOTE ---
Received patient at 1900. Pt. currently in bed. Awake, alert, and oriented. Continues to have hemianopia on L side. Otherwise, neurological assessment normal at the moment. NIHSS 2. Pt. denies pain/discomfort. Heart rhythm sinus. Blood pressure
normotensive. Heparin gtt stopped and pt. transitioned to PO eliquis. Currently on room air. Lungs sound diminished. Pt. has PO diet ordered. Okay appetite. Incontinent of urine, but also requiring straight cath intermittently. Skin as documented.
Discussed plan of care with patient. Vital signs stable at this time.
[2024-03-26] MEDS: PEPCID 20 MG PO (23:04)
[2024-03-27] VITALS (32 sets, daily range): BP systolic 108–188; BP diastolic 47–93; PULSE 70–94; BMI 25.5
[2024-03-27 03:44] LABS: Hematocrit 37.1 % (37.0-47.0); Hemoglobin 12.9 g/dL (12.0-16.0); Mean Corp Hgb Conc. 34.8 g/dL (33.0-37.0); Mean Corpuscular Hgb 30.2 pg (27.0-31.0); Mean Corpuscular Volume 86.9 fL (81.0-99.0); Mean Platelet Volume 11.5 fL (7.4-10.4); Platelet Count 202 10^3/uL (130-400); Red Blood Cell Count 4.27 10^6/uL (4.20-5.40); Red Cell Dist. Width 13.2 % (11.5-14.5)
[2024-03-27 03:45] LABS: Blood Urea Nitrogen 19 mg/dl (7-17); Calcium 9.1 mg/dl (8.4-10.2); Carbon Dioxide 23 mmol/L (22-30); Chloride 101 mmol/L (98-107); Estimated Creatinine Clearance 48 ml/min; Glucose 97 mg/dl (70-99); Potassium 4.3 mmol/L (3.5-5.1); Sodium 132 mmol/L (135-145); eGFR > 60.00
[2024-03-27] MEDS: SYNTHROID 75 MCG PO (07:06)
[2024-03-27] MEDS: APRESOLINE PO (07:10)
[2024-03-27] MEDS: VITAMIN D3 (cholecalciferol) 125 MCG PO (08:02)
[2024-03-27] MEDS: CELEXA 10 MG PO (08:02)
[2024-03-27] MEDS: ELIQUIS 5 MG PO ×2 (08:02→20:00)
[2024-03-27] MEDS: VITAMIN B1 200 MG PO (08:02)
[2024-03-27] MEDS: REFRESH CELLUVISC GEL 1 DROPS OPHTH ×2 (08:03→20:00)
[2024-03-27] MEDS: ASPIR LOW (ENTERIC COATED) 81 MG PO (08:03)
--- NOTE | 2024-03-27 08:10 | PTCARENOTE ---
pt received from previous rn- aox3, [facility] 2. left field cut present. able to make all needs known, call jain within reach, bed alarm on. pt in nsr with 1st degree, room air. no complaints at this time. educated about plan of care- verbalized
understanding.
--- NOTE | 2024-03-27 08:32 | W.PN.HOSP.TC ---
Addendum entered and electronically signed by Kellee Freeman MD 03/28/24 09:23:
Hyponatremia
-stable low 130's
Original Note:
Today's Communication/Plan
-
monitor BP and slowly resume BP meds if necessary, goal BP 140-160 in acute period per neuro
Assessment / Plan
Assessment / Plan
Ms. Edith Hollingsworth is a 83 yo woman with hx CAD s/p PCI 2019, essential HTN, Hypothyroidism, HLD, recent admission to outside hospital for CVA s/p elective SILVER on 03/23/24 for further work-up found to have a 1.0 x 1.8cm mobile echodensity on mitral
valve admitted to cardiology service with plans for CT Surgery on Friday. Hospital course complicated by new expressive and receptive aphasia on 03/25 s/p stat repeat MRI showing bilateral embolic infarcts, small.
SILVER 03/23/24
CONCLUSIONS
-Left ventricular ejection fraction is 60-65%. Normal regional wall motion.
-No thrombus detected in the left atrial appendage.
-Moderately thickened posterior mitral valve leaflet with a large, mobile,
echodensity on the ventricular surface of the posterior leaflet measuring
approximately 1.2 x 1.8 cm. 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
differential diagnosis should also include vegetation, thrombus, or other
intracardiac mass.
-Mild mitral regurgitation.
-At least mild to moderate aortic regurgitation.
-At least mild to moderate tricuspid regurgitation.
TTE 03/25/24
CONCLUSIONS
Follow up echo to assess echodensity associated with mitral valve.
There is a 0.9 cm x 1.1 cm echodensity associated with the posterior mitral
valve leaflet.
A pedunculated mobile component, which measured approximately 1.1 x 1.2 cm and
was visualized on prior TTE 03/23/24, is no longer visualized.
CT Head 03/25/24
IMPRESSION:
No acute intracranial abnormality noted.
Head/Neck CTA 03/25/24
IMPRESSION: No significant vascular occlusion, aneurysm or dissection.
Brain MRI 03/27/24
IMPRESSION:
There are multiple small foci of restricted diffusion involving the bilateral cerebellar hemispheres, right hippocampus, left temporal lobe, right occipital lobe and right frontal lobe consistent with multifocal acute infarctions, possibly embolic.
Additionally there is a 7 mm focus of diffusion hyperintense signal with normalized ADC within the left globus pallidus, likely a subacute infarction.
Acute embolic strokes
Receptive and Expressive Aphasia
Left Visual Field Cut
TME
-acute change in mentation on 03/25 with stat repeat MRI showing new embolic strokes, small. Per neuro, OK to continue anticoagulation
-transitioned to Eliquis 03/26
-hold off on antibiotics - no clear signs of bacterial infection at this point
-mentation improved; main deficit includes left visual field cut
Hypertensive Urgency
Essential Hypertension
-s/p nicardipine gtt
-BP's stable in 140's
-hold blood pressure medications - Nifedipine, Losartan and Hydralazine
Urinary Retention
-repeat UA
-bladder scan and cath PRN
CVA 03/16 - She had left sided weakness and MRI findings of bilateral embolic infarctions; deficit on this admission was double vision (patient does not want an eye patch)
Mitral Valve Mobile Echodensity
-surgery now no longer necessary
-continue aspirin
-continue Eliquis
-appreciate neurology
-appreciate cardiology
DVT PPx Eliquis
Dispo: acute rehab when stable
51 minutes spent on patient care
Anticipated Discharge: 24 - 48 hours
Subjective/Interval History
-
Date of Service: March 27, 2024
feeling well
eating breakfast
Objective Data
-
Labs:
Laboratory Results
03/27/24
03:16
WBC 15.0 H
Hgb 12.9
Hct 37.1
Plt Count 202
Sodium 132 L
Potassium 4.3
Chloride 101
Carbon Dioxide 23
BUN 19 H
Creatinine 0.8
Glucose 97
Calcium 9.1
Vital Signs:
Vital Signs
Temp Pulse Resp BP Pulse Ox
97.7 F 70 20 148/62 97
03/27/24 08:00 03/27/24 08:00 03/27/24 08:00 03/27/24 08:00 03/27/24 08:00
I&O
03/26/24 03/27/24 03/28/24
06:59 06:59 06:59
Intake Total 121 / 129 247 / 247 280 / 280
Output Total 600 / 600 750 / 750
Balance -479 / -471 -503 / -503 280 / 280
Review of Systems
-
History Source: Patient
All other systems: Reviewed and negative
Physical Exam
-
General: No Apparent Distress
HEENT: PERRLA
Respiratory: Clear to Auscultation; Negative Wheezes
Cardiac: S1/S2 and Murmur
GI: Soft and Nontender
Musculoskeletal: No Edema
Neuro: Other (AAO x 3, significant left visual field cut, appears less confused, speech clear, following commands, no pronator drift, no facial droop )
Psych: Calm
Data Reviewed
-
Diagnostic Radiology: Report Reviewed by me
Labs: Labs Reviewed by me
--- NOTE | 2024-03-27 12:11 | W.PN.CD ---
Today's Communication / Plan
-
ASA, eliquis
BP meds on hold with permissive HTN for stroke
Impression / Plan
-
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
Institution. Plan was for a SILVER/ILR today, but the patient was found to have a 1.0 x 1.8 cm mobile echodensity on the ventricular surface of the mitral valve on the SILVER; therefore, the subsequent ILR was canceled. Patient admitted to Cardiology
service to undergo CT Surgery evaluation. Patient was on aspirin/Plavix for recent CVA, as per Neurology.
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
-significant waxing/waning mental status 03/25, and repeat TTE unable to visualize mobile component of mitral valve echodensity
-CTA did not show evidence of vascular occlusion
-SILVER confirms there is no longer a mobile component: no plans for surgery at this time
-plan is med mgmt with eliquis 5mg bid, ASA 81mg daily
Labile hypertension:
-meds on with permissive HTN for stroke
Altered mental status
-seems back to baseline, with no focal deficits
-seizure is on Ddx per neurology
-infectious eval per hospitalist team
Aortic regurgitation:
-Mild on TTE.
CAD, last stent 2019 to LAD
-stable, no angina
-cont ASA 81mg daily
-statin intolerant
LBBB
-seems rate dependent
Cath 11/10/2023 CORONARY ANGIOGRAPHY
Dominance: Right.
Left Main: Normal size, trifurcating vessel. There is no coronary artery disease.
LAD: Normal size vessel giving rise to 1 significant diagonal. A patent stent is visible in the mid vessel with no evidence of in-stent restenosis.
Ramus:Medium size vessel supplying the majority of the lateral wall. There is no coronary artery disease.
Circumflex: Normal size, nondominant vessel, essentially a single large marginal supplying the inferolateral wall. There is a 30% lesion in the ostium of the vessel.
RCA: Normal size, dominant vessel. There are tandem 40% lesions in the mid vessel.
INTERVENTION(S)
1. Successful IFR of the tandem 40% mid RCA lesions demonstrating nonocclusive disease (IFR = 0.94).
Physical Exam
Vital Signs/Labs
Vital Signs
Temp Pulse Resp BP Pulse Ox
98.0 F 69 17 136/55 97
03/27/24 10:35 03/27/24 11:00 03/27/24 11:00 03/27/24 11:00 03/27/24 08:00
03/26/24 03/27/24 03/28/24
06:59 06:59 06:59
Actual Weight 69.8 kg 69.5 kg
03/27/24 03:16
03/27/24 03:16
PT 13.5 Sec (11.4-14.6) 03/24/24 02:45
INR 1.04 03/24/24 02:45
APTT 67.9 Sec (23.4-35.0) H 03/26/24 17:01
Magnesium 2.0 mg/dl (1.6-2.3) 03/27/24 03:16
Physical Exam
Constitutional: Comfortable
EENT: Moist mucous membranes
Cardiovascular: Rhythm & rate is regular, Pedal edema is absent, JVD pressure is normal and Systolic murmur absent
Respiratory: Lungs clear to auscul.
Neuro/Psych: Alert and Oriented
Data Reviewed
-
Date of Service: March 27, 2024
EKG: Other (Tele: SR, PAC's, rate dependent LBBB)
Labs: Labs Reviewed by me
[2024-03-27] MEDS: COZAAR 25 MG PO (16:19)
--- NOTE | 2024-03-27 16:42 | PTCARENOTE ---
pt remains oob to chair, left field cut unchanged. no complaints at this time. pt able to void on bedside commode.
--- NOTE | 2024-03-27 20:00 | PTCARENOTE ---
Received patient at 1900. Pt. currently out of bed in chair. Awake, alert, and oriented. Denies pain/discomfort. Afebrile. Heart sinus. Blood pressure normotensive. Currently on room air. Lungs sound diminished. PO diet, good appetite.Incontinent of
urine. Skin as documented. Discussed plan of care with patient. Vital signs stable at this time.
[2024-03-27] MEDS: PEPCID 20 MG PO (21:49)
[2024-03-27] MEDS: APRESOLINE 5 MG IV (21:49)
[2024-03-28] VITALS (13 sets, daily range): BP systolic 114–158; BP diastolic 47–94; PULSE 69–90; O2SAT 98; BMI 25.5
[2024-03-28 03:30] LABS: Hematocrit 37.3 % (37.0-47.0); Mean Corp Hgb Conc. 34.9 g/dL (33.0-37.0); Mean Corpuscular Hgb 30.4 pg (27.0-31.0); Mean Corpuscular Volume 87.4 fL (81.0-99.0); Mean Platelet Volume 11.4 fL (7.4-10.4); Platelet Count 208 10^3/uL (130-400); Red Blood Cell Count 4.27 10^6/uL (4.20-5.40); Red Cell Dist. Width 13.3 % (11.5-14.5); White Blood Cell Count 11.6 10^3/uL (4.8-10.8)
[2024-03-28 03:53] LABS: Blood Urea Nitrogen 26 mg/dl (7-17); Calcium 9.1 mg/dl (8.4-10.2); Carbon Dioxide 23 mmol/L (22-30); Chloride 101 mmol/L (98-107); Estimated Creatinine Clearance 48 ml/min; Glucose 98 mg/dl (70-99); Potassium 4.5 mmol/L (3.5-5.1); Sodium 132 mmol/L (135-145); eGFR > 60.00
[2024-03-28] MEDS: SYNTHROID 75 MCG PO (06:38)
[2024-03-28] MEDS: COZAAR 25 MG PO (06:59)
[2024-03-28] MEDS: REFRESH CELLUVISC GEL 1 DROPS OPHTH ×2 (06:59→22:28)
[2024-03-28] MEDS: CELEXA 10 MG PO (06:59)
[2024-03-28] MEDS: ASPIR LOW (ENTERIC COATED) 81 MG PO (06:59)
[2024-03-28] MEDS: ELIQUIS 5 MG PO ×2 (06:59→20:38)
[2024-03-28] MEDS: VITAMIN D3 (cholecalciferol) 125 MCG PO (07:01)
--- NOTE | 2024-03-28 07:08 | W.PN.HOSP.TC ---
Today's Communication/Plan
-
anticipate DC to acute rehab tomorrow
continue Losartan 25mg PO QD and monitor BP
Assessment / Plan
Assessment / Plan
Ms. Edith Hollingsworth is a 83 yo woman with hx CAD s/p PCI 2020, essential HTN, Hypothyroidism, HLD, recent admission to outside hospital for CVA s/p elective SILVER on 03/23/24 for further work-up found to have a 1.0 x 1.8cm mobile echodensity on mitral
valve admitted to cardiology service with plans for CT Surgery on Friday. Hospital course complicated by new expressive and receptive aphasia on 03/25 s/p stat repeat MRI showing bilateral embolic infarcts, small.
SILVER 03/23/24
CONCLUSIONS
-Left ventricular ejection fraction is 60-65%. Normal regional wall motion.
-No thrombus detected in the left atrial appendage.
-Moderately thickened posterior mitral valve leaflet with a large, mobile,
echodensity on the ventricular surface of the posterior leaflet measuring
approximately 1.2 x 1.8 cm. 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
differential diagnosis should also include vegetation, thrombus, or other
intracardiac mass.
-Mild mitral regurgitation.
-At least mild to moderate aortic regurgitation.
-At least mild to moderate tricuspid regurgitation.
TTE 03/25/24
CONCLUSIONS
Follow up echo to assess echodensity associated with mitral valve.
There is a 0.9 cm x 1.1 cm echodensity associated with the posterior mitral
valve leaflet.
A pedunculated mobile component, which measured approximately 1.1 x 1.2 cm and
was visualized on prior TTE 03/23/24, is no longer visualized.
CT Head 03/25/24
IMPRESSION:
No acute intracranial abnormality noted.
Head/Neck CTA 03/25/24
IMPRESSION: No significant vascular occlusion, aneurysm or dissection.
Brain MRI 03/27/24
IMPRESSION:
There are multiple small foci of restricted diffusion involving the bilateral cerebellar hemispheres, right hippocampus, left temporal lobe, right occipital lobe and right frontal lobe consistent with multifocal acute infarctions, possibly embolic.
Additionally there is a 7 mm focus of diffusion hyperintense signal with normalized ADC within the left globus pallidus, likely a subacute infarction.
Acute embolic strokes
Receptive and Expressive Aphasia
Left Visual Field Cut
TME
-acute change in mentation on 03/25 with stat repeat MRI showing new embolic strokes, small. Per neuro, OK to continue anticoagulation
-transitioned to Eliquis 03/26
-hold off on antibiotics - no clear signs of bacterial infection at this point
-mentation improved; main deficit includes left visual field cut
CVA 03/16 - She had left sided weakness and MRI findings of bilateral embolic infarctions; deficit on this admission was double vision
Mitral Valve Mobile Echodensity - no longer visible on follow up echo
-surgery now no longer necessary
-continue aspirin
-continue Eliquis
-appreciate neurology
-appreciate cardiology
Hypertensive Urgency - as this was more likely a response to CVA than a cause of CVA based on baseline blood pressures (not hypertensive emergency)
Essential Hypertension
-s/p nicardipine gtt
-BP's stable in 140's
-hold blood pressure medications - Nifedipine, Losartan and Hydralazine
- lower dose Losartan 25mg PO QD started on 03/27 with good response
Urinary Retention
-repeat UA
-bladder scan and cath PRN
Hyponatremia
GI Ppx: pepcid while on asa and eliquis
DVT PPx Eliquis
Dispo: acute rehab when stable
51 minutes spent on patient care
Anticipated Discharge: 24 - 48 hours
Subjective/Interval History
-
Date of Service: March 28, 2024
feeling well
no new complaints or weakness
Objective Data
-
Labs:
Laboratory Results
03/28/24
03:15
WBC 11.6 H
Hgb 13.0
Hct 37.3
Plt Count 208
Sodium 132 L
Potassium 4.5
Chloride 101
Carbon Dioxide 23
BUN 26 H
Creatinine 0.8
Glucose 98
Calcium 9.1
Vital Signs:
Vital Signs
Temp Pulse Resp BP Pulse Ox
97.8 F 66 24 155/94 96
03/28/24 04:20 03/28/24 06:01 03/27/24 18:00 03/28/24 06:59 03/28/24 00:00
I&O
03/27/24 03/28/24 03/29/24
06:59 06:59 06:59
Intake Total 247 / 247 430 / 430
Output Total 750 / 750 600 / 600
Balance -503 / -503 -170 / -170
Review of Systems
-
History Source: Patient
All other systems: Reviewed and negative
Physical Exam
-
General: No Apparent Distress
HEENT: PERRLA
Respiratory: Clear to Auscultation; Negative Wheezes
Cardiac: S1/S2 and Murmur
GI: Soft and Nontender
Musculoskeletal: No Edema
Neuro: Other (AAO x 3, significant left visual field cut, appears less confused, speech clear, following commands, no pronator drift, no facial droop )
Psych: Calm
Data Reviewed
-
Diagnostic Radiology: Report Reviewed by me
Labs: Labs Reviewed by me
--- NOTE | 2024-03-28 07:09 | PTCARENOTE ---
pt received from previous rn- aox3, remains with nih of 2 and left field cut. no complaints at this time. nsr on monitor, room air. all safety precautions in place, bed alarm on and functioning. call belll within reach.
--- NOTE | 2024-03-28 08:30 | PTCARENOTE ---
received patient at transfer from ICU into room 2250. Pt AAOX3, denies pain. NIH- 2 with left visual field cut. 1 assist OOB. bed alarm in place. Sr on telemtry heart rate in 60s. pulses palpable. no edema. pt on room air, sat 99%. lung sounds
clear. active bowel sounds, tolerating diet. voiding without difficulty. pt updated on plan of care. see worklist for full nursing assessment and interventions.
--- NOTE | 2024-03-28 08:30 | PTCARENOTE ---
report given to Jesika RN- pt transported to ivu 2250, belongings sent with pt.
--- NOTE | 2024-03-28 12:17 | W.PN.CD ---
Today's Communication / Plan
-
add back losartan 25mg daily, and trend BP
Impression / Plan
-
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 Donovan, her primary Miss[employer]) with hypertension and hypothyroidism who underwent elective SILVER today for recent stroke and was managed at an outside hospital; an outpatient SILVER/ILR was recommended by that
Institution. Plan was for a SILVER/ILR today, but the patient was found to have a 1.0 x 1.8 cm mobile echodensity on the ventricular surface of the mitral valve on the SILVER; therefore, the subsequent ILR was canceled. Patient admitted to Cardiology
service to undergo CT Surgery evaluation. Patient was on aspirin/Plavix for recent CVA, as per Neurology.
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
-significant waxing/waning mental status 03/25, and repeat TTE unable to visualize mobile component of mitral valve echodensity
-CTA did not show evidence of vascular occlusion
-SILEVR confirms there is no longer a mobile component: no plans for surgery at this time
-plan is med mgmt with eliquis 5mg bid, ASA 81mg daily
Labile hypertension:
-permissive HTN for stroke
-add back losartan 25mg daily, and trend BP
Altered mental status
-seems back to baseline, with no focal deficits
-seizure is on Ddx per neurology
-infectious eval per hospitalist team
Aortic regurgitation:
-Mild on TTE.
CAD, last stent 2019 to LAD
-stable, no angina
-cont ASA 81mg daily
-statin intolerant
LBBB
-seems rate dependent
Cath 11/10/2023 CORONARY ANGIOGRAPHY
Dominance: Right.
Left Main: Normal size, trifurcating vessel. There is no coronary artery disease.
LAD: Normal size vessel giving rise to 1 significant diagonal. A patent stent is visible in the mid vessel with no evidence of in-stent restenosis.
Ramus:Medium size vessel supplying the majority of the lateral wall. There is no coronary artery disease.
Circumflex: Normal size, nondominant vessel, essentially a single large marginal supplying the inferolateral wall. There is a 30% lesion in the ostium of the vessel.
RCA: Normal size, dominant vessel. There are tandem 40% lesions in the mid vessel.
INTERVENTION(S)
1. Successful IFR of the tandem 40% mid RCA lesions demonstrating nonocclusive disease (IFR = 0.94).
Physical Exam
Vital Signs/Labs
Vital Signs
Temp Pulse Resp BP Pulse Ox
97.5 F 68 20 142/47 95
03/28/24 11:57 03/28/24 10:00 03/28/24 11:57 03/28/24 08:22 03/28/24 11:57
03/27/24 03/28/24 03/29/24
06:59 06:59 06:59
Actual Weight 69.5 kg 69.4 kg
03/28/24 03:15
03/28/24 03:15
PT 13.5 Sec (11.4-14.6) 03/24/24 02:45
INR 1.04 03/24/24 02:45
APTT 67.9 Sec (23.4-35.0) H 03/26/24 17:01
Magnesium 2.0 mg/dl (1.6-2.3) 03/27/24 03:16
Physical Exam
Constitutional: No acute distress and Comfortable
EENT: Moist mucous membranes
Cardiovascular: Rhythm & rate is regular, Pedal edema is absent, JVD pressure is normal and Systolic murmur absent
Respiratory: Respiratory effort normal and Lungs clear to auscul.
Neuro/Psych: AO x 3
Data Reviewed
-
Date of Service: March 28, 2024
EKG: Other (Tele: SR 60s)
Labs: Labs Reviewed by me
[2024-03-28] MEDS: PEPCID 20 MG PO (22:28)
--- NOTE | 2024-03-28 23:25 | PTCARENOTE ---
assumed care of patient at the change of shift. AAOx3. NIH 2-left visual field cut. no change. oob x1 assist with the walker. SR on tele 70s-80s. bp stable. bed alarm for safety. assisted patient to the bathroom. unable to urinate. patient states 'i
guess i didn't have to go.' no pain/no distension. bladder scan-210. educated patient to inform RN with any changes. call jain within reach.
[2024-03-29] VITALS (12 sets, daily range): BP systolic 122–159; BP diastolic 49–60; PULSE 74–91; O2SAT 97; BMI 25.3
[2024-03-29 04:45] LABS: Hematocrit 36.3 % (37.0-47.0); Mean Corp Hgb Conc. 35.8 g/dL (33.0-37.0); Mean Corpuscular Hgb 31.3 pg (27.0-31.0); Mean Corpuscular Volume 87.3 fL (81.0-99.0); Platelet Count 231 10^3/uL (130-400); Red Blood Cell Count 4.16 10^6/uL (4.20-5.40); Red Cell Dist. Width 13.2 % (11.5-14.5); White Blood Cell Count 9.9 10^3/uL (4.8-10.8)
[2024-03-29] MEDS: SYNTHROID 75 MCG PO (07:36)
--- NOTE | 2024-03-29 07:45 | PTCARENOTE ---
Assumed care of pt from prev nsg shift; Pt AAOx3 w/no CP or SOB; Pt's VS stable w/HR in the 60's & BP 146/49 this AM. Pt is SR on telemetry monitoring. Pt's NIHSS & neuro-check completed w/prev nsg shift present; pt's NIHSS is a 2 due to L visual
field cut & unchanged from prior assessment. Pt on a bed alarm & chair alarm for mild forgetfulness when getting up. Pt is a contact guard assist w/frequent cueing needed due to visual impairment. Pt assisted OOB to for breakfast w/call jain
within reach & plan of care ongoing.
--- NOTE | 2024-03-29 08:46 | W.PN.CD ---
Today's Communication / Plan
-
plan is med mgmt with eliquis 5mg bid, ASA 81mg daily
added back BP meds at lower doses: losartan 25mg daily, nifedipine 30mg daily
discharge planning
please call us back with additional questions
Impression / Plan
-
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 Donovan, her primary Technician [employer]) with hypertension and hypothyroidism who underwent elective SILVER today for recent stroke and was managed at an outside hospital; an outpatient SILVER/ILR was recommended by that
Institution. Plan was for a SILVER/ILR today, but the patient was found to have a 1.0 x 1.8 cm mobile echodensity on the ventricular surface of the mitral valve on the SILVER; therefore, the subsequent ILR was canceled. Patient admitted to Cardiology
service to undergo CT Surgery evaluation. Patient was on aspirin/Plavix for recent CVA, as per Neurology.
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
-significant waxing/waning mental status 03/25, and repeat TTE unable to visualize mobile component of mitral valve echodensity
-CTA did not show evidence of vascular occlusion
-SILVER confirms there is no longer a mobile component: no plans for surgery at this time
-plan is med mgmt with eliquis 5mg bid, ASA 81mg daily
Labile hypertension:
-permissive HTN for stroke
-added back BP meds at lower doses: losartan 25mg daily, nifedipine 30mg daily
Altered mental status
-seems back to baseline, with no focal deficits
Aortic regurgitation:
-Mild on TTE.
CAD, last stent 2019 to LAD
-stable, no angina
-cont ASA 81mg daily
-statin intolerant
LBBB
-seems rate dependent
Cath 11/10/2023 CORONARY ANGIOGRAPHY
Dominance: Right.
Left Main: Normal size, trifurcating vessel. There is no coronary artery disease.
LAD: Normal size vessel giving rise to 1 significant diagonal. A patent stent is visible in the mid vessel with no evidence of in-stent restenosis.
Ramus:Medium size vessel supplying the majority of the lateral wall. There is no coronary artery disease.
Circumflex: Normal size, nondominant vessel, essentially a single large marginal supplying the inferolateral wall. There is a 30% lesion in the ostium of the vessel.
RCA: Normal size, dominant vessel. There are tandem 40% lesions in the mid vessel.
INTERVENTION(S)
1. Successful IFR of the tandem 40% mid RCA lesions demonstrating nonocclusive disease (IFR = 0.94).
Physical Exam
Vital Signs/Labs
Vital Signs
Temp Pulse Resp BP Pulse Ox
98.0 F 68 18 146/49 98
03/29/24 07:36 03/29/24 07:35 03/29/24 07:36 03/29/24 07:35 03/29/24 07:36
03/28/24 03/29/24 03/30/24
06:59 06:59 06:59
Actual Weight 69.4 kg
03/29/24 04:13
03/28/24 03:15
PT 13.5 Sec (11.4-14.6) 03/24/24 02:45
INR 1.04 03/24/24 02:45
APTT 67.9 Sec (23.4-35.0) H 03/26/24 17:01
Magnesium 2.0 mg/dl (1.6-2.3) 03/27/24 03:16
Physical Exam
Constitutional: No acute distress
EENT: Moist mucous membranes
Cardiovascular: Rhythm & rate is regular, Pedal edema is absent, JVD pressure is normal and Systolic murmur absent
Respiratory: Respiratory effort normal and Lungs clear to auscul.
Neuro/Psych: Oriented
Data Reviewed
-
Date of Service: March 29, 2024
EKG: Other (Tele: SR 80-100)
Labs: Labs Reviewed by me
--- NOTE | 2024-03-29 08:47 | CM ---
Reviewed chart. Mrs. Hollingsworth was transferred to IVU. Reviewed chart. Telephone call to [facility] Liaison to make the referral. Sent the referral. [facility]. Medical work-up in
progress. Prior to admission she resides with her spouse in an a house at [facility]
--- NOTE | 2024-03-29 08:51 | CM ---
Addendum entered by Susannah Holland 03/29/24 12:13:
Received telephone call from [facility] Liaison who states [facility] [place] does not have a bed today. Will contact [facility].
Original Note:
Reviewed chart. Mrs. Hollingsworth was transferred to IVU. Telephone call to [facility] Liaison to make the referral. Left message. Sent referral to [facility]. Awaiting call back from [facility] regarding ability to accept and bed availability.
Prior to admission she resides with her spouse in a house at [facility] at [facility]. She has been there for seven years. Prior to admission she was independent with ambulation and adls. She does not have any DME in the home.
She has a prescription plan and uses [facility]. Medical work-up in progress. The discharge plan is to go to [facility] [place] if approved for admission and bed available.
[2024-03-29] MEDS: ASPIR LOW (ENTERIC COATED) 81 MG PO (09:52)
[2024-03-29] MEDS: ELIQUIS 5 MG PO ×2 (09:52→19:51)
[2024-03-29] MEDS: COZAAR 25 MG PO (09:52)
[2024-03-29] MEDS: VITAMIN D3 (cholecalciferol) 125 MCG PO (09:52)
[2024-03-29] MEDS: PROCARDIA XL (EXTENDED RELEASE) 30 MG PO (09:53)
[2024-03-29] MEDS: CELEXA 10 MG PO (09:53)
[2024-03-29] MEDS: REFRESH CELLUVISC GEL 1 DROPS OPHTH ×2 (09:53→19:51)
--- NOTE | 2024-03-29 13:41 | W.PN.HOSP.TC ---
Today's Communication/Plan
-
monitor vitals
see plan
no bed at [facility] today
dc planning
cw aspirin,Eliquis
cw losartan,nifedipine
Assessment / Plan
Assessment / Plan
Ms. Edith Hollingsworth is a 83 yo woman with hx CAD s/p PCI 2019, essential HTN, Hypothyroidism, HLD, recent admission to outside hospital for CVA s/p elective SILVER on 03/23/24 for further work-up found to have a 1.0 x 1.8cm mobile echodensity on mitral
valve admitted to cardiology service with plans for CT Surgery on Friday. Hospital course complicated by new expressive and receptive aphasia on 03/25 s/p stat repeat MRI showing bilateral embolic infarcts, small.
SILVER 03/23/24
CONCLUSIONS
-Left ventricular ejection fraction is 60-65%. Normal regional wall motion.
-No thrombus detected in the left atrial appendage.
-Moderately thickened posterior mitral valve leaflet with a large, mobile,
echodensity on the ventricular surface of the posterior leaflet measuring
approximately 1.2 x 1.8 cm. 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
differential diagnosis should also include vegetation, thrombus, or other
intracardiac mass.
-Mild mitral regurgitation.
-At least mild to moderate aortic regurgitation.
-At least mild to moderate tricuspid regurgitation.
TTE 03/25/24
CONCLUSIONS
Follow up echo to assess echodensity associated with mitral valve.
There is a 0.9 cm x 1.1 cm echodensity associated with the posterior mitral
valve leaflet.
A pedunculated mobile component, which measured approximately 1.1 x 1.2 cm and
was visualized on prior TTE 03/23/24, is no longer visualized.
CT Head 03/25/24
IMPRESSION:
No acute intracranial abnormality noted.
Head/Neck CTA 03/25/24
IMPRESSION: No significant vascular occlusion, aneurysm or dissection.
Brain MRI 03/27/24
IMPRESSION:
There are multiple small foci of restricted diffusion involving the bilateral cerebellar hemispheres, right hippocampus, left temporal lobe, right occipital lobe and right frontal lobe consistent with multifocal acute infarctions, possibly embolic.
Additionally there is a 7 mm focus of diffusion hyperintense signal with normalized ADC within the left globus pallidus, likely a subacute infarction.
Acute embolic strokes
Receptive and Expressive Aphasia
Left Visual Field Cut
TME
-acute change in mentation on 03/25 with stat repeat MRI showing new embolic strokes, small. Per neuro, OK to continue anticoagulation
-transitioned to Eliquis 03/26
-hold off on antibiotics - no clear signs of bacterial infection at this point
-mentation improved; main deficit includes left visual field cut
CVA 03/16 - She had left sided weakness and MRI findings of bilateral embolic infarctions; deficit on this admission was double vision
Mitral Valve Mobile Echodensity - no longer visible on follow up echo
-surgery now no longer necessary
-continue aspirin
-continue Eliquis
-appreciate neurology
-appreciate cardiology
Hypertensive Urgency - as this was more likely a response to CVA than a cause of CVA based on baseline blood pressures (not hypertensive emergency)
Essential Hypertension
-s/p nicardipine gtt
-BP's stable in 140's
-was blood pressure medications - Nifedipine, Losartan and Hydralazine
- lower dose Losartan 25mg PO QD started on 03/27 with good response; now also on nifedipine
Urinary Retention
-bladder scan and cath PRN
Hyponatremia
GI Ppx: pepcid while on asa and eliquis
DVT PPx Eliquis
Dispo: acute rehab when stable
General: No Apparent Distress
HEENT: PERRLA
Respiratory: Clear to Auscultation; Negative Wheezes
Cardiac: S1/S2 and Murmur
GI: Soft and Nontender
Musculoskeletal: No Edema
Neuro: Other (AAO x 3, significant left visual field cut, appears less confused, speech clear, following commands, no pronator drift, no facial droop )
Psych: Calm
Anticipated Discharge: Within 24 hours
Subjective/Interval History
-
Date of Service: March 29, 2024
denies pain
Objective Data
-
Labs:
Laboratory Results
03/29/24
04:13
WBC 9.9
Hgb 13.0
Hct 36.3 L
Plt Count 231
Vital Signs:
Vital Signs
Temp Pulse Resp BP Pulse Ox
98.1 F 75 20 145/55 97
03/29/24 10:57 03/29/24 11:00 03/29/24 10:57 03/29/24 10:56 03/29/24 10:57
I&O
03/28/24 03/29/24 03/30/24
06:59 06:59 06:59
Intake Total 430 / 430 480 / 480 480 / 480
Output Total 600 / 600 300 / 300 575 / 575
Balance -170 / -170 180 / 180 -95 / -95
[2024-03-29] MEDS: PEPCID 20 MG PO (22:01)
[2024-03-30 04:57] VITALS: BP 171/58
[2024-03-30 05:15] VITALS: BMI 25.4
[2024-03-30] MEDS: SYNTHROID 75 MCG PO (05:17)
[2024-03-30 05:38] LABS: % Basophils 0.6 % (0-2); % Eosinophils 3.6 % (0-6); % Immature Granulocytes 0.6 % (0-0.5); % Lymphocytes 22.1 % (20.5-51.1); % Monocytes 11.7 % (1.7-9.3); % Neutrophils 61.4 % (42.2-75.2); Absolute Eosinophils 0.3 10^3/uL (0-0.7); Absolute Lymphocytes 1.6 10^3/uL (1.2-3.4); Absolute Monocytes 0.8 10^3/uL (0.1-0.6); Absolute Neutrophils 4.3 10^3/uL (1.4-6.5); Hematocrit 32.6 % (37.0-47.0); Hemoglobin 11.3 g/dL (12.0-16.0); Mean Corp Hgb Conc. 34.7 g/dL (33.0-37.0); Mean Corpuscular Hgb 29.5 pg (27.0-31.0); Mean Corpuscular Volume 85.1 fL (81.0-99.0); Nucleated Red Blood Cells % 0 %; Platelet Count 232 10^3/uL (130-400); Red Blood Cell Count 3.83 10^6/uL (4.20-5.40); Red Cell Dist. Width 13.1 % (11.5-14.5)
[2024-03-30 05:59] LABS: Blood Urea Nitrogen 24 mg/dl (7-17); Calcium 8.8 mg/dl (8.4-10.2); Carbon Dioxide 24 mmol/L (22-30); Chloride 102 mmol/L (98-107); Estimated Creatinine Clearance 48 ml/min; Glucose 101 mg/dl (70-99); Potassium 4.5 mmol/L (3.5-5.1); Sodium 131 mmol/L (135-145); eGFR > 60.00
[2024-03-30 07:41] VITALS: BP 174/59
[2024-03-30 07:43] VITALS: BP 160/54
[2024-03-30] MEDS: REFRESH CELLUVISC GEL 1 DROPS OPHTH (08:44)
[2024-03-30] MEDS: VITAMIN D3 (cholecalciferol) 125 MCG PO (09:05)
[2024-03-30] MEDS: PROCARDIA XL (EXTENDED RELEASE) 30 MG PO (09:05)
[2024-03-30] MEDS: ELIQUIS 5 MG PO (09:06)
[2024-03-30] MEDS: CELEXA 10 MG PO (09:06)
[2024-03-30] MEDS: COZAAR 25 MG PO (09:06)
[2024-03-30] MEDS: ASPIR LOW (ENTERIC COATED) 81 MG PO (09:06)
--- NOTE | 2024-03-30 09:20 | CM ---
Reviewed chart Telephone call to [facility]. Liaison to check on bed availability. [facility] states he has a bed available today. The report number for [facility] is ([phone]). Medial work-up in progress. The discharge plan is to go to [facility] At [place] when medically stable.
[2024-03-30 11:07] VITALS: BP 124/46
--- NOTE | 2024-03-30 12:36 | W.PN.HOSP.TC ---
Addendum entered and electronically signed by Cristi Conroy MD 03/30/24 13:31:
Time of discharge 39 minutes
Original Note:
Today's Communication/Plan
-
monitor vitals
see plan
cw nifedipine,losartan
cw eliquis
awaiting [facility] placement; CM aware
Assessment / Plan
Assessment / Plan
Ms. Edith Hollingsworth is a 83 yo woman with hx CAD s/p PCI 2019, essential HTN, Hypothyroidism, HLD, recent admission to outside hospital for CVA s/p elective SILVER on 03/23/24 for further work-up found to have a 1.0 x 1.8cm mobile echodensity on mitral
valve admitted to cardiology service with plans for CT Surgery on Friday. Hospital course complicated by new expressive and receptive aphasia on 03/25 s/p stat repeat MRI showing bilateral embolic infarcts, small.
SILVER 03/23/24
CONCLUSIONS
-Left ventricular ejection fraction is 60-65%. Normal regional wall motion.
-No thrombus detected in the left atrial appendage.
-Moderately thickened posterior mitral valve leaflet with a large, mobile,
echodensity on the ventricular surface of the posterior leaflet measuring
approximately 1.2 x 1.8 cm. 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
differential diagnosis should also include vegetation, thrombus, or other
intracardiac mass.
-Mild mitral regurgitation.
-At least mild to moderate aortic regurgitation.
-At least mild to moderate tricuspid regurgitation.
TTE 03/25/24
CONCLUSIONS
Follow up echo to assess echodensity associated with mitral valve.
There is a 0.9 cm x 1.1 cm echodensity associated with the posterior mitral
valve leaflet.
A pedunculated mobile component, which measured approximately 1.1 x 1.2 cm and
was visualized on prior TTE 03/23/24, is no longer visualized.
CT Head 03/25/24
IMPRESSION:
No acute intracranial abnormality noted.
Head/Neck CTA 03/25/24
IMPRESSION: No significant vascular occlusion, aneurysm or dissection.
Brain MRI 03/27/24
IMPRESSION:
There are multiple small foci of restricted diffusion involving the bilateral cerebellar hemispheres, right hippocampus, left temporal lobe, right occipital lobe and right frontal lobe consistent with multifocal acute infarctions, possibly embolic.
Additionally there is a 7 mm focus of diffusion hyperintense signal with normalized ADC within the left globus pallidus, likely a subacute infarction.
Acute embolic strokes
Receptive and Expressive Aphasia
Left Visual Field Cut
TME
-acute change in mentation on 03/25 with stat repeat MRI showing new embolic strokes, small. Per neuro, OK to continue anticoagulation
-transitioned to Eliquis 03/26
-hold off on antibiotics - no clear signs of bacterial infection at this point
-mentation improved; main deficit includes left visual field cut
CVA 03/16 - She had left sided weakness and MRI findings of bilateral embolic infarctions; deficit on this admission was double vision
Mitral Valve Mobile Echodensity - no longer visible on follow up echo
-surgery now no longer necessary
-continue aspirin
-continue Eliquis
-appreciate neurology
-appreciate cardiology
Hypertensive Urgency - as this was more likely a response to CVA than a cause of CVA based on baseline blood pressures (not hypertensive emergency)
Essential Hypertension
-s/p nicardipine gtt
-BP's stable in 140's
-was blood pressure medications - Nifedipine, Losartan and Hydralazine
- lower dose Losartan 25mg PO QD started on 03/27 with good response; now also on nifedipine
Urinary Retention
-bladder scan and cath PRN
Hyponatremia
GI Ppx: pepcid while on asa and eliquis
DVT PPx Eliquis
Dispo: acute rehab; medically ready. CM aware
General: No Apparent Distress
HEENT: PERRLA
Respiratory: Clear to Auscultation; Negative Wheezes
Cardiac: S1/S2 and Murmur
GI: Soft and Nontender
Musculoskeletal: No Edema
Neuro: Other (AAO x 3, significant left visual field cut, appears less confused, speech clear, following commands, no pronator drift, no facial droop )
Psych: Calm
Anticipated Discharge: Today
Subjective/Interval History
-
Date of Service: March 30, 2024
denies pain
Objective Data
-
Labs:
Laboratory Results
03/30/24
05:06
WBC 7.0
Hgb 11.3 L
Hct 32.6 L
Plt Count 232
Sodium 131 L
Potassium 4.5
Chloride 102
Carbon Dioxide 24
BUN 24 H
Creatinine 0.8
Glucose 101 H
Calcium 8.8
Vital Signs:
Vital Signs
Temp Pulse Resp BP Pulse Ox
97.6 F 53 16 160/54 98
03/30/24 11:05 03/30/24 11:05 03/30/24 11:05 03/30/24 09:05 03/30/24 11:05
I&O
03/29/24 03/30/24 03/31/24
06:59 06:59 06:59
Intake Total 480 / 480 480 / 480
Output Total 300 / 300 1425 / 1425
Balance 180 / 180 -945 / -945
--- NOTE | 2024-03-30 13:31 | W.DCSUMMARY ---
Discharge Summary
Discharge Data
Date of Admission: 03/23/24
Date of Discharge: 03/30/24
-
Pending Results: No
Hospital Course
83-year-old female with past medical history of CAD status post PCI, essential hypertension, hypothyroidism, hyperlipidemia, CVA came to the hospital for SILVER and loop recorder. On SILVER patient was found to have mobile mass on mitral valve therefore
loop recorder was canceled and CT surgery evaluation was requested. Later in the hospitalization patient developed acute CVA with MRI was concerning for embolic strokes. Another SILVER was done which did not show any mobile component of the mitral
valve therefore CT surgery did not perform any intervention. Anticoagulation along with aspirin was recommended. Patient was also evaluated by physical therapy who recommended acute rehab. Initially she also had toxic metabolic encephalopathy
which continue to improve and she was at her baseline mental status prior to discharge. Once her symptoms continue to improve, she was then discharged to acute rehab with instructions to follow-up with all her physicians outpatient.
Discharge Plan
-
Patient Disposition: Acute Rehab Facility
Discharge Diagnosis/Procedures: Acute embolic strokes
Receptive and expressive aphasia
Toxic metabolic encephalopathy
Hypertension
Urinary retention
Diet: Low Cholesterol
Activity: With assistance and As tolerated
Driving Restrictions: Not until seen by your Dr
Bathing Restrictions: After dressing removed
Stand Alone Forms: DC Inst - Implanted Device
Referrals:
Rochelle Townsend CRNP [Specified Professional Personl] - 04/05/24 10:40 am
Valeria Fisher MD [Family Provider] - in less than 1 week
Dano Suarez MD [Active] - in two to three weeks
Prescriptions:
New
sennosides-docusate sodium 8.6-50 mg Tablet
1 tab PO BIDPRN PRN (Reason: constipation) Qty: 0 0RF
nifedipine 30 mg Tablet Extended Release
30 mg PO DAILY Qty: 0 0RF
losartan 25 mg Tablet
25 mg PO DAILY Qty: 0 0RF
famotidine 20 mg Tablet
20 mg PO HS Qty: 0 0RF
Eliquis 5 mg Tablet
5 mg PO BID Qty: 0 0RF
Continued
milk thistle 500 MG capsule
500 mg PO QPM
cyanocobalamin (vitamin B-12) 1,000 MCG tablet
1,000 mcg PO DAILY
folic acid 0.4 MG tablet
0.4 mg PO DAILY
aspirin 81 MG tablet,delayed release (DR/EC)
81 mg PO DAILY
TheraTears 30 ML drops
15 ml OP BID
levothyroxine 75 MCG tablet
75 mcg PO DAILY
nitroglycerin 0.4 MG tablet, sublingual
0.4 mg sublingual [id number] PRN (Reason: chest pain)
vitamin E (dl, acetate) 100 UNITS capsule
100 units PO QPM
L.acidoph, paracasei,B. lactis 1 EACH capsule
1 ea PO DAILY
citalopram [Celexa] 10 mg Tablet
10 mg PO DAILY
omega-3 fatty acids-fish oil 684-1,200 mg Capsule,Delayed Release(Dr/Ec)
1 cap PO QPM
cholecalciferol (vitamin D3) [Vitamin D3] 125 mcg (5,000 unit) Tablet
125 mcg PO DAILY
coenzyme Q10 150 mg Capsule
150 mg PO DAILY
alprazolam 0.25 mg tablet
0.25 mg PO DAILYPRN PRN (Reason: anxiety)
Discontinued
phytonadione (vitamin K1) 100 MCG tablet
100 mcg PO DAILY
losartan 50 mg Tablet
50 mg PO DAILY
nifedipine 90 mg tablet extended release 24hr
90 mg PO DAILY Qty: 30 5RF
clopidogrel [Plavix] 75 mg Tablet
75 mg PO DAILY
hydralazine 50 mg Tablet
50 mg PO TID
Discharge Orders:
Discharge Patient (As Directed); Ordered 03/30/24
Ordered By: Cristi Conroy
Care Plan Goals
Care Plan Goals:
Problem: Readiness for enhanced knowledge related to diagnosis and treatment plan
Goal: Understand your diagnosis and treatment plan needs, including medications if applicable.
Instructions: Know your diagnosis, underlying causes and treatment plan options, including medications if applicable. Consult with your health care team to learn about your diagnosis and treatment plan, including medications if applicable.
Discharge Date and Time
Discharge Date/Time: 03/30/24 18:15
Print Language: MOHAWK
[2024-03-30 16:03] VITALS: BP 134/52
--- NOTE | 2024-03-30 16:40 | TRANSFER ---
Report called to [facility] at [facility]. Awaiting bed availability.
== END 2024-03-30 18:15 | DRG 306 ==
LOC: IVU 11:00
PROVIDERS: Internal Medicine Cardiovascular Disease; Nurse Practitioner; Nurse Practitioner Adult Health; Physician Assistant Medical; Student in an Organized Health Care Education/Training Program; ADMITTING PHYSICIAN Internal Medicine; ATTENDING PHYSICIAN Internal Medicine; CONSULT PHYSICIAN Physical Medicine & Rehabilitation; CONSULT PHYSICIAN Psychiatry & Neurology Neurology; FAMILY PHYSICIAN Internal Medicine; OTHER PHYSICIAN Internal Medicine; OTHER PHYSICIAN Thoracic Surgery (Cardiothoracic Vascular Surgery)
PROC: B24BZZ4 Ultrasonography of Heart with Aorta, Transesophageal (ICD-10-PCS; 2024-03-23)
DX: I08.3 Combined rheumatic disorders of mitral, aortic and tricuspid valves (principal); G92.8 Other toxic encephalopathy; I63.50 Cerebral infarction due to unspecified occlusion or stenosis of unspecified cerebral artery; R47.01 Aphasia; E87.1 Hypo-osmolality and hyponatremia; I48.91 Unspecified atrial fibrillation; D15.1 Benign neoplasm of heart; I10 Essential (primary) hypertension; I16.0 Hypertensive urgency; E03.9 Hypothyroidism, unspecified; I25.10 Atherosclerotic heart disease of native coronary artery without angina pectoris; H49.22 Sixth [abducent] nerve palsy, left eye; Z79.82 Long term (current) use of aspirin; Z79.02 Long term (current) use of antithrombotics/antiplatelets
CPT/HCPCS: 93308; 70355; 70450; 70496; 70498; 70551; 71045; 71046; 71275; 80048; 80053; 81003; 82248; 82962; 83036; 83735; 84145; 85025; 85027; 85610; 85730; 86850; 86900; 86901; 87040; 87502; 87811; 92507; 92523; 92610; 93005; 93306; 93312; 93320; 93325; 93880; 95816; 97116; 97163; 97167; 97530; 97535; Q9967

== ENCOUNTER 2025-03-18 13:35 | Inpatient (IN) | payer MEDICARE, OTHER, SELFPAY ==
[2025-03-18] VITALS (16 sets, daily range): BP systolic 148–190; BP diastolic 36–79; PULSE 69–81; BMI 26.9; BMI 25.7
[2025-03-18 10:15] LABS: Hematocrit 20.7 % (37.0-47.0); Hemoglobin 6.6 g/dL (12.0-16.0); Mean Corp Hgb Conc. 31.9 g/dL (33.0-37.0); Mean Corpuscular Volume 81.8 fL (81.0-99.0); Nucleated Red Blood Cells % 0 %; Platelet Count 326 10^3/uL (130-400); Red Cell Dist. Width 17.7 % (11.5-14.5)
[2025-03-18 10:49] LABS: ALT (SGPT) 15 U/L (0-35); AST (SGOT) 22 U/L (14-36); Albumin 3.8 g/dl (3.5-5.0); Alkaline Phosphatase 47 U/L (38-126); Blood Urea Nitrogen 17 mg/dl (7-17); Calcium 8.8 mg/dl (8.4-10.2); Carbon Dioxide 24 mmol/L (22-30); Chloride 104 mmol/L (98-107); Glucose 91 mg/dl (70-99); Potassium 4.6 mmol/L (3.5-5.1); Sodium 132 mmol/L (135-145); Total Protein 6.1 g/dl (6.3-8.2); eGFR 55.55
--- NOTE | 2025-03-18 11:16 | ED.GENMED ---
History of Present Illness
<Ana Atkins BLIND HOOKER - Last Filed: 03/18/25 19:17>
General
Chief Complaint: Abnormal Lab Value
Source: patient
Exam Limitations: none
Time Seen by Provider: 03/18/25 10:56
Nursing documentation reviewed up to this point in time: agreed with
History of Present Illness
History of Present Illness:
84-year-old female with history of multiple strokes on Plavix and Xarelto, CAD with cardiac stent, HTN, HLD, hypothyroid, anxiety,, known peptic ulcer disease presents for low hemoglobin.
She lives at [facility] and her primary doctor sent her to [facility] 3 weeks ago for hemoglobin of 6.3, she received 2 blood transfusions and patient states 2 days ago she had blood work drawn and was sent here today for hemoglobin of 8.5
that day. Her PCP told her that her hemoglobin should be higher than 8.5 since she received 2 units of blood. Patient denies chest pain but states if she walks up a hill she does get some shortness of breath. She denies abdominal pain/n/v. She
denies change in the color of her stool but states that during her previous workup her stool was black.
She did have an upper endoscopy 3 weeks ago and was diagnosed with PUD, bleeding ulcer and she is on Protonix 40 mg twice daily. She denies dizziness/lightheadedness, denies numbness or tingling or weakness in her extremities.
Past History
<Ana Atkins BLIND HOOKER - Last Filed: 03/18/25 19:17>
Past History
ED Past Medical History: CAD, CVA (Multiple), HTN, Hypercholesterolemia, Hypothyroidism and Psychiatric (Anxiety)
ED Past Surgical History: Cardiac (Stent) and Gynecological
Social History
Tobacco: Non-smoker
Alcohol: None
Drug: None
Personal:
Living: with family
Review of Systems
<Ana Atkins, BLIND HOOKER - Last Filed: 03/18/25 19:17>
Review of Systems
Allergies reviewed?: Yes
All Other Systems: ROS reviewed and negative except as documented in HPI and ROS
EENT: Reports other (Loss of peripheral vision in left eye from previous CVA.)
Phy Exam
<Ana Atkins, BLIND HOOKER - Last Filed: 03/18/25 19:17>
Physical Exam
Physical Exam:
GENERAL: No acute distress. A&Ox3.
CONSTITUTIONAL: Afebrile.
EYES: clear, conjunctivae normal
ENMT: moist mucus membranes, Pharynx nl
RESPIRATORY: Regular respirations, nonlabored, lungs clear.
CARDIOVASCULAR: Regular rate and rhythm, no murmurs, no rubs.
GI: Soft, nontender, normal BS
Rectal exam: stool dark, heme positive
MUSCULOSKELETAL: Moves with ease. Well perfused.
SKIN: Warm, dry, pink
PSYCH: Normal mood and affect. Well kept, interactive and appropriate
NEUROLOGIC: Awake, alert and oriented. No focal neurological deficits
Course
<Ana Atkins, BLIND HOOKER - Last Filed: 03/18/25 19:17>
Orders/Labs/Results
Orders:
Orders
03/18/25 Breakfast
NPO
Allow oral meds: No
Allow clear liquids: 4hrs prior to procedure
Comment: may have unrestricted clear liquid up to 4 hrs prior to scheduled procedure
03/18/25 10:02
Type+Screen Urgent
Complete Blood Count/With Diff Urgent
Comprehensive Metabolic Panel Urgent
03/18/25 11:14
IV Insert/Care/Rem.- Treatment PRN
Pantoprazole 80 mg/100 ml Nss [Protonix] 80 mg in 100 ml IV NOW
Pantoprazole [Protonix IV] 40 mg IV NOW STA
03/18/25 11:15
* Blood Bank Products Urgent
Blood Bank Products: *Packed RBC Leuko(PRBC's)
Quantity: 2
Transfuse Today: Yes
Reason: Bleeding
IV Insert/Care/Rem.- Treatment PRN
Pantoprazole [Protonix IV] 80 mg IV NOW STA
03/18/25 11:31
GASTROINTESTINAL CONSULT Urgent
Consulting Provider: Robina Pandya
Was physician already notified: Yes
Reason for consult: GI bleed
03/18/25 12:21
Code Status As Directed
Resuscitation Status: Full Code
03/18/25 12:47
Admit/Transfer Patient As Directed
Co-Sign Provider:
Level of Care: Inpatient admission
Assign to:: Telemetry
Physician / Group: Hospitalists
Diagnosis: GI Bleed
Reason for Telemetry: Other
Other Reason for Telemetry: Acute Blood loss Anemia
Date to Stop Telemetry: 03/20/25
Time to Stop Telemetry: 11:00
Reason for Hospitalization: GI Bleed with acute Anemia
Expected length of stay greater than two midnights?: Yes
ELOS- Estimated Length of Stay in days: 4
I certify the patient meets the requirements for IP care: Yes
03/18/25 12:48
PRN Pain Medication Management As Directed
May give lesser potent ordered pain med per pt: Yes
preference::
Protocol:: Medication orders for pain may be administered in a
manner that supports deferring to patient preference
when the pt is:
- Requesting an ordered lesser potent pain medication.
Least to most potent pain medications are defined
as: acetaminophen < NSAID < tramadol < opioids
(morphine, oxycodone, hydromorphone).
- Requesting a lesser dose of the same medication IF
ORDERED.
- Requesting a less intrusive route of administration
if both routes are prescribed by the provider (PO <
IV).
03/18/25 18:35
Activity As Directed
Activity Level: As Tolerated
Activity As Directed
Activity Level: As Tolerated
INT (Intravenous Needle Therapy) As Directed
Comment: Place 2 IV catheters of the largest bore possible until stable
Notify MD As Directed
Notify physician if: Bridge Admission orders placed.
Notify attending physician:
-- upon arrival to unit
OR
-- when patient is identified as an ED hold
Orthostatic Vital Signs As Directed
Orthostatic VS Frequency: Now
Comment: then every four hours for twenty-four hours
Pneumatic Compression Sleeves As Directed
Type: Knee high
Pneumatic Compression Sleeves As Directed
Type: Knee high
Vital Signs As Directed
Frequency: Per unit guidelines
Vital Signs As Directed
Frequency: Per unit guidelines
O2 Therapy [RESP] Routine
Titrate/Wean O2 to maintain O2 sat greater than (%): 92
DX Deep Vein Thrombosis Video Routine
DX Deep Vein Thrombosis Video Routine
03/19/25 06:00
Levothyroxine [Synthroid] 75 mcg PO DAILY @ 0600
03/19/25 08:00
Citalopram [Celexa] 10 mg PO DAILY
Abnormal Lab Results
03/18/25
10:02
RBC 2.53 L 10^6/uL
(4.20-5.40)
Hgb 6.6 L* g/dL
(12.0-16.0)
Hct 20.7 L* %
(37.0-47.0)
MCH 26.1 L pg
(27.0-31.0)
MCHC 31.9 L g/dL
(33.0-37.0)
RDW 17.7 H %
(11.5-14.5)
Absolute Lymphs (auto) 0.9 L 10^3/uL
(1.2-3.4)
Absolute Monos (auto) 0.7 H 10^3/uL
(0.1-0.6)
Lymphocytes % 15.2 L %
(20.5-51.1)
Monocytes % 12.3 H %
(1.7-9.3)
Sodium 132 L mmol/L
(135-145)
Total Protein 6.1 L g/dl
(6.3-8.2)
Crossmatch IS Only See Detail
03/18/25 10:02
03/18/25 10:02
Vital Signs
Initial and Last Documented VS:
Initial Vital Signs
Temp Pulse Resp BP Pulse Ox
97.7 F 84 16 169/65 100
03/18/25 09:56 03/18/25 09:56 03/18/25 09:56 03/18/25 09:56 03/18/25 09:56
Last Documented Vital Signs
Temp Pulse Resp BP Pulse Ox
97.8 F 79 18 187/79 99
03/18/25 18:41 03/18/25 18:41 03/18/25 18:41 03/18/25 18:41 03/18/25 18:41
Wheel Fitter consulted with Physician
Wheel Fitter consulted with physician?: Yes
Name of Physician Consulted: Rj
<Dion De La Rosa, DO - Last Filed: 03/18/25 11:27>
Orders/Labs/Results
Orders:
Orders
03/18/25 Breakfast
NPO
Allow oral meds: No
Allow clear liquids: 4hrs prior to procedure
Comment: may have unrestricted clear liquid up to 4 hrs prior to scheduled procedure
03/18/25 10:02
Type+Screen Urgent
Complete Blood Count/With Diff Urgent
Comprehensive Metabolic Panel Urgent
03/18/25 11:14
IV Insert/Care/Rem.- Treatment PRN
Pantoprazole 80 mg/100 ml Nss [Protonix] 80 mg in 100 ml IV NOW
Pantoprazole [Protonix IV] 40 mg IV NOW STA
03/18/25 11:15
* Blood Bank Products Urgent
Blood Bank Products: *Packed RBC Leuko(PRBC's)
Quantity: 2
Transfuse Today: Yes
Reason: Bleeding
IV Insert/Care/Rem.- Treatment PRN
Pantoprazole [Protonix IV] 80 mg IV NOW STA
03/18/25 11:31
GASTROINTESTINAL CONSULT Urgent
Consulting Provider: Robina Pandya
Was physician already notified: Yes
Reason for consult: GI bleed
03/18/25 12:21
Code Status As Directed
Resuscitation Status: Full Code
03/18/25 12:47
Admit/Transfer Patient As Directed
Co-Sign Provider:
Level of Care: Inpatient admission
Assign to:: Telemetry
Physician / Group: Hospitalists
Diagnosis: GI Bleed
Reason for Telemetry: Other
Other Reason for Telemetry: Acute Blood loss Anemia
Date to Stop Telemetry: 03/20/25
Time to Stop Telemetry: 11:00
Reason for Hospitalization: GI Bleed with acute Anemia
Expected length of stay greater than two midnights?: Yes
ELOS- Estimated Length of Stay in days: 4
I certify the patient meets the requirements for IP care: Yes
03/18/25 12:48
PRN Pain Medication Management As Directed
May give lesser potent ordered pain med per pt: Yes
preference::
Protocol:: Medication orders for pain may be administered in a
manner that supports deferring to patient preference
when the pt is:
- Requesting an ordered lesser potent pain medication.
Least to most potent pain medications are defined
as: acetaminophen < NSAID < tramadol < opioids
(morphine, oxycodone, hydromorphone).
- Requesting a lesser dose of the same medication IF
ORDERED.
- Requesting a less intrusive route of administration
if both routes are prescribed by the provider (PO <
IV).
03/18/25 18:35
Activity As Directed
Activity Level: As Tolerated
Activity As Directed
Activity Level: As Tolerated
INT (Intravenous Needle Therapy) As Directed
Comment: Place 2 IV catheters of the largest bore possible until stable
Notify MD As Directed
Notify physician if: Bridge Admission orders placed.
Notify attending physician:
-- upon arrival to unit
OR
-- when patient is identified as an ED hold
Orthostatic Vital Signs As Directed
Orthostatic VS Frequency: Now
Comment: then every four hours for twenty-four hours
Pneumatic Compression Sleeves As Directed
Type: Knee high
Pneumatic Compression Sleeves As Directed
Type: Knee high
Vital Signs As Directed
Frequency: Per unit guidelines
Vital Signs As Directed
Frequency: Per unit guidelines
O2 Therapy [RESP] Routine
Titrate/Wean O2 to maintain O2 sat greater than (%): 92
DX Deep Vein Thrombosis Video Routine
DX Deep Vein Thrombosis Video Routine
03/19/25 06:00
Levothyroxine [Synthroid] 75 mcg PO DAILY @ 0600
03/19/25 08:00
Citalopram [Celexa] 10 mg PO DAILY
Abnormal Lab Results
03/18/25
10:02
RBC 2.53 L 10^6/uL
(4.20-5.40)
Hgb 6.6 L* g/dL
(12.0-16.0)
Hct 20.7 L* %
(37.0-47.0)
MCH 26.1 L pg
(27.0-31.0)
MCHC 31.9 L g/dL
(33.0-37.0)
RDW 17.7 H %
(11.5-14.5)
Absolute Lymphs (auto) 0.9 L 10^3/uL
(1.2-3.4)
Absolute Monos (auto) 0.7 H 10^3/uL
(0.1-0.6)
Lymphocytes % 15.2 L %
(20.5-51.1)
Monocytes % 12.3 H %
(1.7-9.3)
Sodium 132 L mmol/L
(135-145)
Total Protein 6.1 L g/dl
(6.3-8.2)
Crossmatch IS Only See Detail
03/18/25 10:02
03/18/25 10:02
Vital Signs
Initial and Last Documented VS:
Initial Vital Signs
Temp Pulse Resp BP Pulse Ox
97.7 F 84 16 169/65 100
03/18/25 09:56 03/18/25 09:56 03/18/25 09:56 03/18/25 09:56 03/18/25 09:56
Last Documented Vital Signs
Temp Pulse Resp BP Pulse Ox
97.8 F 79 18 187/79 99
03/18/25 18:41 03/18/25 18:41 03/18/25 18:41 03/18/25 18:41 03/18/25 18:41
<Ana Atkins BLIND HOOKER - Last Filed: 03/18/25 19:17>
MDM/Problems Addressed
Differential Diagnosis Includes:
Bleeding peptic ulcer
MDM/Problems Addressed:
84-year-old female with history of multiple strokes on Plavix and Xarelto, CAD with cardiac stent, HTN, HLD, hypothyroid, anxiety,, known peptic ulcer disease presents for low hemoglobin.
She lives at [facility] and her primary doctor sent her to [facility] 3 weeks ago for hemoglobin of 6.3, she received 2 blood transfusions and patient states 2 days ago she had blood work drawn and was sent here today for hemoglobin of 8.5
that day. Her PCP told her that her hemoglobin should be higher than 8.5 since she received 2 units of blood. Patient denies chest pain but states if she walks up a hill she does get some shortness of breath. She denies abdominal pain/n/v. She
denies change in the color of her stool but states that during her previous workup her stool was black.
She did have an upper endoscopy 3 weeks ago and was diagnosed with PUD, bleeding ulcer and she is on Protonix 40 mg twice daily. She denies dizziness/lightheadedness, denies numbness or tingling or weakness in her extremities.
Afebrile, NAD, VSS
CBC: Hgb 6.6
CMP unremarkable
Stool black, heme positive
11:30 a.m.
PRBC's ordered, Protonix drip
Hospitalist and GI notified.
Case discussed with Dr. De La Rosa
<Ana Atkins, BLIND HOOKER - Last Filed: 03/18/25 19:17>
*Pulse Oximetry
SaO2: 100
Patient hypoxic: no
*Critical Care Note
Total Time (30-74mins, 75-104mins- exclusive of procedures): Not Applicable
ED Attending Note
<Ana Atkins, BLIND HOOKER - Last Filed: 03/18/25 19:17>
-
Portions of this chart may have been created with voice recognition software.� Occasional wrong word or��sound alike� substitutions may have occurred due to the inherent limitations of voice recognition software.
<Dion De La Rosa, DO - Last Filed: 03/18/25 11:27>
ED Attending Note
Patient seen and examined by attending physician: Yes
Discharge Plan
Departure
Patient Disposition: Admit
Date of Disposition: 03/18/25
Time of Disposition: :
Admit to: Med/Surg
Presentation/result/management discussed w/ accepting MD/DO: Hospitalist
Condition: Fair
Discharge Problem:
GI (gastrointestinal bleed)
Interventions
Interventions:
*Risk Screen - Suicide Last Done: 03/18/25 09:56
*General Assessment Last Done: 03/18/25 12:45
*Neglect/Abuse Screening Last Done: 03/18/25 09:56
*ED- Fall Risk Assessment Last Done: 03/18/25 12:21
*ED COVID-19 Vaccine History Last Done: 03/18/25 12:45
*Nursing Disposition Last Done: 03/18/25 18:28
Discharge Date and Time
Discharge Date/Time: 03/18/25 18:28
--- NOTE | 2025-03-18 11:59 | HPS.HSE ---
Addendum entered and electronically signed by Paramjit Umana MD 03/18/25 20:56:
Attending Addendum-
I performed a history and physical exam of the patient and discussed his management with the resident. I reviewed the resident's note and agree with the documented findings and plan of care CC/HPI- sent to ED from [facility] due to low hb.
patient denies melena hematemesis or N/V/abd pain. In ED found to have heme pos stool/melena. hb 6.6 Patient ordered 2 units prbc and PPI. Paitent very pleasant with no complaints. Full 12 point ROS reviewed and negative except as documented Exam-
vitals reviewed in EMR GEN-NAD heart RRR lungs clear abd soft NT ND pos BS LE no edema
Plan:
#Acute Anemia likely secondary to upper GI bleed
#Peptic Ulcer Disease/DU
-Patient with recent hospitalization at [facility] with endoscopy on 03/02- non bleeding DU, restarted on asa plavix on 03/06
-2 units pRBCs ordered
-Continue ppi gtt
-check iron studies
-Recheck CBC in the AM
-GI consulted- hold off on endoscopy until xarelto washout on friday
-start clears in am, NPOpMN Friday
# Hyponatremia-mild likely hypovolemic repeat BMP in am
#Essential Hypertension
-IV Hydralazine Q6HR PRN for high blood pressure, noncompliant with her home medications
-HOLD amlodipine and losartan at this time
-CTM
#Hypothyroidism-Continue levothyroxine 75mcg daily
#History of CVA in 03/2024 and 04/2024-HOLD Xarelto, Plavix in the setting of GI bleed
#Coronary Artery Disease-S/p stent in 2019
#Depression- noncompliant with meds hold on Celexa for now
CODE-FULL
[id number]
[facility] lives with
ACP
Patient consented to discuss, was alone, time spent explanation of advance directives, changes in health status, patient�s health care wishes if the patient becomes unable to make health decisions, goals of care, code status, and prognosis- 16
minutes
Time spent coordinating care, review of plan of care with resident, personally reviewed previous records in EMR, med rec, labs, radiology, d/w nursing, total time documented is exclusive of any additional time listed that was spent in advance care
planning discussion -� 75 minutes
Original Note:
Family Physician
-
Family Physician: Valeria Fisher
Chief Complaint
-
Abnormal outpatient hemoglobin
History of Present Illness
This is an 84 y/o female with pmhx of essential hypertension, coronary artery disease s/p stent in 2019, hyperlipidemia, hypothyroidism, CVA in 03/2024 and 04/2024, Peptic Ulcer Disease who presented to the ED on 03/18/2025 following an abnormal lab
value in the outpatient setting.
Of note, patient reports a recent hospitalization 3 weeks ago. She states that she had melena and weakness, prompting her PCP to check her hemoglobin. It was 6.3, so she was sent to [facility] where she was transfused with 2 units of pRBCs.
She reports an endoscopy was performed which showed a 1.5cm duodenal ulcer. No colonoscopy was completed at that time, though she is reportedly due for one in the outpatient setting now. Following transfusion, her hemoglobin reportedly increased to
11.6 and she was discharged on pantoprazole 40mg BID.
On 03/16/2025, a repeat hemoglobin was checked by her PCP. She reports this value was 8.5, and she was instructed to come to the ED as her PCP was not certain why her hemoglobin had dropped so quickly from 11.6 following transfusion.
Today, she reports feeling fine. She denies fevers, chills, shortness of breath, chest pain, palpitations, nausea, vomiting, abdominal pain. She denies fatigue or dark stools recently. She reports she has not taken her amlodipine 5mg daily nor her
losartan 50mg BID for the last 2 weeks due to her diastolic blood pressure being low. In addition, she is also taking Plavix 75mg daily not noted on her home medication list. She reports both of these medications are for stroke prevention. She does
have some midline, lower thoracic back pain which she attributes to needing a new mattress.
Medical History
Past Medical History
Past Medical History: Reports CAD (S/p stent 4 years ago), HTN and Hypothyroidism; Denies Arrhythmia or Cancer
Past Surgical History: Reports Tonsilectomy
Social History
Tobacco: Non-smoker
Alcohol: None
Drug: None
Personal:
Living: Assisted Living
Employment: Retired
Family History
Family History: Cancer (Bladder cancer in father, Unknown cancer in brother) and Hypertension (Father)
Allergies / Home Medications
Allergies reflects when Allergies were last updated in [facility].
Home Medications with original date entered in [facility]
Allergy/Medication List:
Allergies
Allergy/AdvReac Type Severity Reaction Status Date / Time
levofloxacin (From Levaquin) Allergy Severe Unknown Verified 03/18/25 09:57
mold Allergy Severe sinus Verified 03/18/25 09:57
problems
Penicillins Allergy Severe sore Verified 03/18/25 09:57
throat and
tongue
Sulfa (Sulfonamide Allergy Severe Throat Verified 03/18/25 09:57
Antibiotics) burning
Beta-Blockers AdvReac Severe Nearly Verified 03/18/25 09:57
(Beta-Adrenergic Bloc coded from
severe
bradycardia
oxycodone (From Percocet) AdvReac Severe Vomiting Verified 03/18/25 09:57
Home Medications
citalopram 10 mg tablet (Celexa) 10 mg PO DAILY Mental Health/Anxiety 30 days #30 tabs 04/08/24
cyanocobalamin (vitamin B-12) 1,000 mcg tablet 1,000 mcg PO DAILY Supplement 30 days #30 tabs 04/08/24
levothyroxine 75 mcg tablet 75 mcg PO DAILY Thyroid 30 days #30 tabs 04/08/24
<del>losartan</del> <del>50</del> <del>mg</del> <del>tablet</del> <del>50</del> <del>mg</del> <del>PO</del> <del>BID</del> <del>Blood</del> <del>pressure</del> <del>30</del> <del>days</del> <del>#60</del> <del>tabs</del> <del>04/08/24</del>
<del>-</del> <del>NOT</del> <del>TAKING</del>
<del>amlodipine</del> <del>5</del> <del>mg</del> <del>tablet</del> <del>(Norvasc)</del> <del>5</del> <del>mg</del> <del>PO</del> <del>DAILY</del> <del>03/18/25</del> <del>-</del> <del>NOT</del> <del>TAKING</del>
cholecalciferol (vitamin D3) 25 mcg (1,000 unit) capsule (Vitamin D3) 25 mcg PO DAILY 03/18/25
folic acid 1 mg tablet 1 mg PO DAILY 03/18/25
omega-3 fatty acids-fish oil 684 mg-1,200 mg capsule,delayed release 1 cap PO DAILY supplement 03/18/25
pantoprazole 40 mg tablet,delayed release (Protonix) 40 mg PO BID 03/18/25
rivaroxaban 15 mg tablet (Xarelto) 15 mg PO DAILY 03/18/25
Review of Systems
-
History Source: Patient
A 12 point ROS was completed and negative except as noted: Yes
Constitutional: Denies Fever, Weight Gain, Weight Loss, Sleep Disturbance, Night Sweats or Chills
Respiratory: Denies Cough or Trouble Breathing
Cardiac: Denies Chest Pain, Palpitations or Syncope
Abdomen/GI: Denies Abdominal Pain, Nausea, Vomiting, Diarrhea, Constipated, Bloody Stools or Black Stools (None currently, yes 3 weeks prior)
Musculoskeletal: Denies Joint Pain
Neurological: Denies Dizzy, Headache or Weakness
Hematologic/Lymphatic: Denies Bleeding
Psych: Reports Calm
Physical Exam
Vital Signs
Vital Signs
Temp Pulse Resp BP Pulse Ox
97.7 F 84 16 169/65 100
03/18/25 09:56 03/18/25 09:56 03/18/25 09:56 03/18/25 09:56 03/18/25 11:22
Physical Exam
General: Well Developed, Well Nourished, No Apparent Distress and Comfortable
HEENT: NormoCephalic, Anicteric, Nose Appears Normal, Ears Appear Normal and Other (Pale conjuctivae)
Respiratory: Clear
Cardiac: S1/S2 and Regular Rhythm
GI: Soft, Non Tender, Non Distended and Normal Bowel Sounds
Musculoskeletal: No Edema
Skin: Warm and Dry
Neuro: Awake, Alert and Oriented
Psych: Calm and Intact Judgment/Insight
Laboratory Results
-
03/18/25 10:02
03/18/25 10:02
Laboratory Results
Total Bilirubin 0.9 mg/dl (0.2-1.3) 03/18/25 10:02
AST 22 U/L (14-36) 03/18/25 10:02
ALT 15 U/L (0-35) 03/18/25 10:02
Alkaline Phosphatase 47 U/L (38-126) 03/18/25 10:02
Impression/Plan
-
IMPRESSION: This is an 84 y/o female with pmhx of essential hypertension, coronary artery disease s/p stent in 2019, hyperlipidemia, atrial fibrillation, hypothyroidism, CVA in 03/2024 and 04/2024, Peptic Ulcer Disease who presented to the ED on
03/18/2025 following an abnormal lab value in the outpatient setting and was found to have a hemoglobin of 6.6 in the ED.
PLAN:
Acute Anemia likely secondary to GI bleed
Peptic Ulcer Disease
-Patient with recent hospitalization at [facility] 3 weeks ago with hemoglobin of 6.3, found to have peptic ulcer disease on endoscopy, received 2 units pRBCs and discharged with hemoglobin of 11.6
-Today in the ED, hemoglobin 6.6, stool was heme +
-2 units pRBCs have been ordered in the ED. Gastroenterology has also been consulted, will appreciate their insight
-Continue IV Pantoprazole 80mg as ordered by GI
-Ordered iron studies
-Recheck CBC in the AM
-Will monitor
Essential Hypertension
-Patient with elevated BP upon admission
-Ordered IV Hydralazine Q6HR PRN for high blood pressure, as she has not taken her home medications in some time
-HOLD amlodipine and losartan at this time
-Will monitor
Hyperlipidemia
-HOLD omega-3 fatty acid supplement
Hypothyroidism
-Continue levothyroxine 75mcg daily
History of CVA in 03/2024 and 04/2024
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 Not seen on imaging from 06/06/2023, and not seen on subsequent 03/25/2024 Echo.
Mild Aortic Regurgitation
-HOLD Xarelto 15mg, Plavix 75mg in the setting of GI bleed
Coronary Artery Disease
-S/p stent in 2019
[2025-03-18] MEDS: PROTONIX IV 40 MG IV (12:40)
[2025-03-18] MEDS: PROTONIX 100 IV (12:41)
--- NOTE | 2025-03-18 14:21 | CON.GI ---
Addendum entered and electronically signed by Robina Pandya MD 03/18/25 15:34:
I saw and examined the patient.
The HOSPITALITY SPECIALIST's note was reviewed and I agree with the note.
Comment: This is a very pleasant 84-year-old female with past medical history as listed below who had a history of a recent upper GI bleed while on Xarelto and Plavix and had endoscopy on 03/02/2025 and was noted to have a 1.5 cm nonbleeding DU. She
was on PPI twice daily and was restarted on Plavix and Xarelto on 03/06/2025 and her hemoglobin at the time of DC was 11.6. She had repeat labs performed on 03/16/2025 hemoglobin was 7.5 and was referred to the emergency room and it is 6.6 today.
She has had dark stools and is OB positive. No hematemesis. She currently denies abdominal pain but has left upper mid back pain. She also has a history of colon polyps and her last colonoscopy was about 3 years ago with .
Assessment and plan recurrent acute blood loss anemia with GI bleed most likely upper GI bleed from known DU noted on endoscopy on 03/02/2025 at [place]. Her hemoglobin has drifted down was apparently 11.6 on 03/06/2025 and is now 6.6. She also was
noting dark stools. She has been on Xarelto and Plavix and she took her meds today. Will wait for Xarelto washout and schedule upper endoscopy on Friday but if she has further active or brisk bleeding will do EGD more emergently.. Start PPI drip
and trend hemoglobin. Scheduled for blood transfusion also. She also needs a follow-up colonoscopy eventually with her outpatient GI she does have a history of colon polyps
Original Note:
Consultation
-
Date/Time Consultation Requested: 03/18/25 1300
Date/Time Consultation Performed: 03/18/25 1400
Requesting Provider: JOSE Talley
Performing Provider: Dr. Pandya/CATHIE Isbell
Reason for Consultation: OB positive, severe anemia, recent GI bleed
Medical History
Chief Complaint / HPI
Chief Complaint: low hgb
History of Present Illness:
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
ventricular surface of the mitral valve on SILVER on Plavix and Xarelto, hyponatremia, recent hospitalization to [facility] in the beginning of February for melena and weakness. Found to have a 1.5 cm nonbleeding duodenal ulcer. Patient
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 She states that during the time of her GI bleeding she was transfused 2 units of packed red blood cells during her hospitalization. She was taken off of Plavix and Xarelto. She was
placed on a heparin drip and eventually went through endoscopy on 03/02/2025. Was on pantoprazole 40 mg twice daily. She was placed back on her Plavix and Xarelto and on 03/06/2025 her hemoglobin was 11.6 on discharge. The patient had repeat lab
work performed as an outpatient on 03/16/2025 and hemoglobin was 7.5. She was instructed to come to the emergency room for further evaluation. We are asked to evaluate for the same. The patient presents here today with a hemoglobin of 6.6, stool is
dark in his OB positive. She did take her Xarelto and Plavix this morning. We are asked to evaluate for the same. The patient does state that when she went into [facility] that she felt weak and had melena. She states that her stools are
dark but not like she experienced before. She does state that for the past 3 days that she has had some left lower back discomfort. She denies any fevers, chills, nausea, vomiting, hematochezia, dysphagia or dyne aphasia. No early satiety or
unintended weight loss. She is due for colonoscopy at this time. She does follow with Dr. Guan as an outpatient. Patient is currently receiving blood transfusion. She has been taking pantoprazole 40 mg twice daily since her admission at
[facility].
Past Medical History
Past Medical History: Other (CAD, PCI, hypertension, hyperlipidemia, A-fib, LVH, hypothyroidism, CVA, visual field defect, mitral valve mass, duodenal ulcer)
Past Surgical History: Other (Teeth, D&C, cataracts, left humerus fracture repair, muscle biopsy)
Social History
Tobacco: Non-Smoker
Alcohol: None
Drug: None
Living: Assisted Living
Family History
Family History: Other (Family history gastrointestinal malignancy or IBD)
Allergies / Home Medications
Allergy/AdvReac Type Severity Reaction Status Date / Time
levofloxacin (From Levaquin) Allergy Severe Unknown Verified 03/18/25 09:57
mold Allergy Severe sinus Verified 03/18/25 09:57
problems
Penicillins Allergy Severe sore Verified 03/18/25 09:57
throat and
tongue
Sulfa (Sulfonamide Allergy Severe Throat Verified 03/18/25 09:57
Antibiotics) burning
Beta-Blockers AdvReac Severe Nearly Verified 03/18/25 09:57
(Beta-Adrenergic Bloc coded from
severe
bradycardia
oxycodone (From Percocet) AdvReac Severe Vomiting Verified 03/18/25 09:57
�Medication �Instructions �Recorded
citalopram 10 mg tablet (Celexa) 10 mg PO DAILY Mental 04/08/24
Health/Anxiety 30 days #30 tabs
cyanocobalamin (vitamin B-12) 1,000 mcg PO DAILY Supplement 30 04/08/24
1,000 mcg tablet days #30 tabs
levothyroxine 75 mcg tablet 75 mcg PO DAILY Thyroid 30 days 04/08/24
#30 tabs
losartan 50 mg tablet 50 mg PO BID Blood pressure 30 04/08/24
days #60 tabs
amlodipine 5 mg tablet (Norvasc) 5 mg PO DAILY 03/18/25
cholecalciferol (vitamin D3) 25 25 mcg PO DAILY 03/18/25
mcg (1,000 unit) capsule (Vitamin
D3)
folic acid 1 mg tablet 1 mg PO DAILY 03/18/25
omega-3 fatty acids-fish oil 684 1 cap PO DAILY supplement 03/18/25
mg-1,200 mg capsule,delayed release
pantoprazole 40 mg tablet,delayed 40 mg PO BID 03/18/25
release (Protonix)
rivaroxaban 15 mg tablet (Xarelto) 15 mg PO DAILY 03/18/25
Review of Systems
-
All other systems: A 12 pt ROS was Negative except as stated above in HPI
Vital Signs
Temp Pulse Resp BP Pulse Ox
97.7 F 63 16 154/60 99
03/18/25 14:11 03/18/25 14:11 03/18/25 14:11 03/18/25 14:11 03/18/25 14:11
Physical Exam
Exam
General: Other (pale)
HEENT: Anicteric
Respiratory: Clear (Anterior)
Cardiac: Regular Rhythm and Murmur
GI: Soft, Non Tender, Non Distended and Normal Bowel Sounds
Rectal: Hem Positive (Dark OB positive stool (per ER))
Musculoskeletal: No Edema
Skin: Warm and Dry
Neuro: AO x 3
Psych: Calm
Results
WBC 5.9 10^3/uL (4.8-10.8) 03/18/25 10:02
Hgb 6.6 g/dL (12.0-16.0) L* 03/18/25 10:02
Hct 20.7 % (37.0-47.0) L* 03/18/25 10:02
MCV 81.8 fL (81.0-99.0) 03/18/25 10:02
Plt Count 326 10^3/uL (130-400) 03/18/25 10:02
Absolute Neuts (auto) 4.2 10^3/uL (1.4-6.5) 03/18/25 10:02
Sodium 132 mmol/L (135-145) L 03/18/25 10:02
Potassium 4.6 mmol/L (3.5-5.1) 03/18/25 10:02
Chloride 104 mmol/L (98-107) 03/18/25 10:02
Carbon Dioxide 24 mmol/L (22-30) 03/18/25 10:02
BUN 17 mg/dl (7-17) 03/18/25 10:02
Creatinine 1.0 mg/dL (0.6-1.0) 03/18/25 10:02
Calcium 8.8 mg/dl (8.4-10.2) 03/18/25 10:02
Total Bilirubin 0.9 mg/dl (0.2-1.3) 03/18/25 10:02
AST 22 U/L (14-36) 03/18/25 10:02
ALT 15 U/L (0-35) 03/18/25 10:02
Alkaline Phosphatase 47 U/L (38-126) 03/18/25 10:02
Diagnostic Image Results:
None this admission
Prior GI Procedures:
EGD: Records unavailable to us, per patient ([facility]) 03/02/2025: 1.5 cm duodenal ulcer, nonbleeding.
Colonoscopy: 3 years ago (Dr. Guan) polyps, due for repeat at this time.
Assessment / Plan
-
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
ventricular surface of the mitral valve on SILVER on Plavix and Xarelto, hyponatremia, recent hospitalization to [facility] in the beginning of February for melena and weakness. Found to have a 1.5 cm nonbleeding duodenal ulcer. Patient
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 She states that during the time of her GI bleeding she was transfused 2 units of packed red blood cells during her hospitalization. She was taken off of Plavix and Xarelto. She was
placed on a heparin drip and eventually went through endoscopy on 03/02/2025. Was on pantoprazole 40 mg twice daily. She was placed back on her Plavix and Xarelto and on 03/06/2025 her hemoglobin was 11.6 on discharge. The patient had repeat lab
work performed as an outpatient on 03/16/2025 and hemoglobin was 7.5. She was instructed to come to the emergency room for further evaluation. We are asked to evaluate for the same. Currently stool is dark OB positive. Hemoglobin currently 6.6.
Patient is receiving currently 1 unit packed red blood cells. Last dose of Xarelto and Plavix were this morning. Does have left low back discomfort.
Impression:
Duodenal ulcer, diagnosed 03/02/2025 [facility] (will need to obtain records)
--> Has been on pantoprazole 40 mg twice daily
Severe anemia, blood loss hemoglobin currently 6.6 down from 11.6--> 03/06/2024
History of CVA (04/2024)
History of mitral valve mass
History of A-fib
History of CAD with PCI LAD 05/2020
--> On Plavix and Xarelto, both taken today
Plan:
-Transfuse as ordered
-PPI drip has been initiated
-Recommend cardiology consult, patient known [facility]-> help guide antiplatelet/anticoagulation.
-Obtain records from [facility]
- Trend hemoglobin
-Okay for clear liquids, no reds.
- Further recommendations to be forthcoming.
-
-
Thank you for consultation and allowing me to participate in the patient's care. Please call the specialty sales consultant GI physician during the after hours with any questions or concerns.
--- NOTE | 2025-03-18 15:52 | CM ---
Met with patient at bedside in the ED; home address verified: [address], [place]
Pharmacy verified: [facility] @ [facility] @ [address], [place], [place]
Lives w/ @ [facility] @ [facility]; one floor home; bath has walk-in shower w/ grab bar and shower chair
PLOF: was independent with ADLs; meals delivered to home; has a cleaning service; ambulated w/ [employer]; not driving; no caregivers or family nearby
NO SNF or Home Health utilization history
PT available at the [facility] if recommended; if Home Health/VN is recommended; she is agreeable to [facility] services
Transport to be determined; does not drive, discussed [facility] option if she does not meet medical necessity for Medicare
Discharge Plan: pending hospital course, she said she will go to [facility] at [facility] before going home when discharged; unless other recommendations (e.g., SNF) are identified
--- NOTE | 2025-03-18 19:30 | PTCARENOTE ---
Assumed care of patient from previous RN. Patient newly admitted to 3, ambulated into room with assistance, Protonix drip maintained. Patient alert and oriented, no complaints, call jain in reach and inquiring on when she would receive additional
unit of blood. First unit PRBCs transfused in ED without adverse events. Will monitor.
[2025-03-18] MEDS: APRESOLINE 10 MG IV (20:33)
[2025-03-18] MEDS: FLUSH (NSS) 1 FLUSH IV (20:36)
[2025-03-19] VITALS (9 sets, daily range): BP systolic 117–190; BP diastolic 53–88; PULSE 73–89
--- NOTE | 2025-03-19 04:00 | PTCARENOTE ---
S/p second unit PRBCs, patient tolerated well without any adverse events. Resting comfortably in bed, call jain at bedside, will monitor.
[2025-03-19] MEDS: SYNTHROID 75 MCG PO (06:48)
--- NOTE | 2025-03-19 07:38 | W.PN.HOSP.TC ---
Today's Communication/Plan
-
Continue clear liquids
GI is following
Plan for Endoscopy on Friday
Assessment / Plan
Assessment / Plan
Assessment:
Plan:
#Acute Anemia likely secondary to upper GI bleed
#Peptic Ulcer Disease
-Patient with recent hospitalization at [facility] with endoscopy on 03/02- non bleeding ulcer 1.5cm noted on endoscopy, restarted on asa plavix on 03/06
-Hemoglobin on admission 6.6, s/p 2 units pRBCs maria esther to 10.1 today
-Iron studies reveal low % saturation and increased reticulocyte count.
-Continue on IV pantoprazole, ordered 40mg BID today
-Continue to monitor H&H
-GI is following with plan for endoscopy on Friday following Xarelto washout
-Continue on clear liquids with plan for NPO Friday PM
# Hyponatremia
-Mild, likely hypovolemic
-Continue to monitor BMP
#Essential Hypertension
-IV Hydralazine Q6HR PRN for high blood pressure, noncompliant with her home medications
-HOLD amlodipine and losartan at this time
-Continue to monitor blood pressure
#Hypothyroidism-Continue levothyroxine 75mcg daily
#History of CVA in 03/2024 and 04/2024-HOLD Xarelto, Plavix in the setting of GI bleed
#Coronary Artery Disease-S/p stent in 2019
#Depression- noncompliant with meds hold on Celexa for now
CODE-FULL
DVTp-SCDS
Dispo-from [facility], lives with
Anticipated Discharge: > 48 hours
Subjective/Interval History
-
Date of Service: March 19, 2025
Patient was resting comfortably when I arrived. She continues to feel very good and is free of shortness of breath, chest pain, abdominal pain, nausea, vomiting, diarrhea or constipation. She denies any known history of atrial fibrillation or
arrhythmias, but does follow with cardiology outpatient for calcifications of her valves noted on prior Echo. Her next appointment is scheduled for April or May.
Objective Data
-
Labs:
Laboratory Results
03/19/25
06:35
WBC Pending
Hgb Pending
Hct Pending
Plt Count Pending
Sodium Pending
Potassium Pending
Chloride Pending
Carbon Dioxide Pending
BUN Pending
Creatinine Pending
Glucose Pending
Calcium Pending
Vital Signs:
Vital Signs
Temp Pulse Resp BP Pulse Ox
97.6 F 73 16 117/75 95
03/19/25 03:39 03/19/25 03:39 03/19/25 03:39 03/19/25 03:39 03/19/25 03:39
I&O
03/18/25 03/19/25 03/20/25
06:59 06:59 06:59
Intake Total 1090 / 1090
Output Total 200 / 200
Balance 890 / 890
Review of Systems
-
History Source: Patient
Constitutional: Denies Fever or Chills
Respiratory: Denies Cough or Trouble Breathing
Cardiac: Denies Chest Pain or Palpitations
Abdomen/GI: Denies Abdominal Pain, Nausea, Vomiting or Diarrhea
Neuro: Denies Dizzy, Headache, Weakness or Numbness
Physical Exam
-
General: Well Developed, Well Nourished, No Apparent Distress and Comfortable
HEENT: Normocephalic and Atraumatic
Respiratory: Clear to Auscultation
Cardiac: Regular Rhythm and S1/S2
GI: Soft, Nontender, Nondistended and Normal Bowel Sounds
Skin: Warm and Dry
Neuro: Awake, Alert and Oriented
Psych: Calm and Intact Judgement/Insight
[2025-03-19 07:42] LABS: Hematocrit 30.1 % (37.0-47.0); Hemoglobin 10.1 g/dL (12.0-16.0); Mean Corp Hgb Conc. 33.6 g/dL (33.0-37.0); Mean Corpuscular Volume 81.6 fL (81.0-99.0); Platelet Count 353 10^3/uL (130-400); Red Cell Dist. Width 16.4 % (11.5-14.5); Reticulocyte Count 3.1 % (0.4-2.8)
[2025-03-19] MEDS: CELEXA 10 MG PO (08:05)
[2025-03-19 08:17] LABS: Blood Urea Nitrogen 12 mg/dl (7-17); Calcium 8.8 mg/dl (8.4-10.2); Carbon Dioxide 24 mmol/L (22-30); Chloride 105 mmol/L (98-107); Estimated Creatinine Clearance 47 ml/min; Glucose 88 mg/dl (70-99); Iron 84 ug/dl (37-170); Potassium 4.4 mmol/L (3.5-5.1); Sodium 133 mmol/L (135-145); eGFR > 60.00
[2025-03-19 08:26] LABS: Total Iron Binding Capacity 433 ug/dl (265-497)
[2025-03-19 08:52] LABS: Ferritin 11.8 ng/ml (11.1-264.0)
--- NOTE | 2025-03-19 09:41 | W.PN.GI.CBS2 ---
Today's Communication / Plan
-
EGD Friday
ful liquids
Assessment / Plan
-
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
ventricular surface of the mitral valve on SILVER on Plavix and Xarelto, hyponatremia, recent hospitalization to [facility] in the beginning of February for melena and weakness. Found to have a 1.5 cm nonbleeding duodenal ulcer. Patient
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 She states that during the time of her GI bleeding she was transfused 2 units of packed red blood cells during her hospitalization. She was taken off of Plavix and Xarelto. She was
placed on a heparin drip and eventually went through endoscopy on 03/02/2025. Was on pantoprazole 40 mg twice daily. She was placed back on her Plavix and Xarelto and on 03/06/2025 her hemoglobin was 11.6 on discharge. The patient had repeat lab
work performed as an outpatient on 03/16/2025 and hemoglobin was 7.5. She was instructed to come to the emergency room for further evaluation. We are asked to evaluate for the same. Currently stool is dark OB positive. Hemoglobin currently 6.6.
Patient is receiving currently 1 unit packed red blood cells. Last dose of Xarelto and Plavix were this morning. Does have left low back discomfort.
Impression:
Duodenal ulcer, diagnosed 03/02/2025 [facility] (will need to obtain records)
--> Has been on pantoprazole 40 mg twice daily
Severe anemia, blood loss hemoglobin currently 6.6 down from 11.6--> 03/06/2024
History of CVA (04/2024)
History of mitral valve mass
History of A-fib
History of CAD with PCI [facility] 05/2020
--> On Plavix and Xarelto, both taken today
Plan:
- Hemoglobin responded appropriately to 2 units of packed red blood cells and no further active bleeding. Plavix and Xarelto are on hold
- EGD Friday after Xarelto washout will be performed sooner if she has further drop in hemoglobin or active bleeding
- Will advance diet to full liquids
- Will also need eventual outpatient colonoscopy with her outpatient GI given her prior history of colon polyps, although given age may not need further surveillance
- She also has iron deficiency anemia may also benefit from iron infusions
Subjective
Subjective
Date of Service: March 19, 2025
No further bowel movement or melena since admission. Hemoglobin responded appropriately to 2 units of packed red blood cells. No abdominal pain. No nausea vomiting or hematemesis. She also denies any chest pain
Objective
Data Reviewed
Laboratory Data:
Laboratory Results
03/19/25 06:35
03/19/25 06:35
Laboratory Results
Total Bilirubin 0.9 mg/dl (0.2-1.3) 03/18/25 10:02
AST 22 U/L (14-36) 03/18/25 10:02
ALT 15 U/L (0-35) 03/18/25 10:02
Alkaline Phosphatase 47 U/L (38-126) 03/18/25 10:02
Vital Signs and I&O:
Vital Signs
Temp Pulse Resp BP Pulse Ox
97.4 F 73 22 168/68 96
03/19/25 08:35 03/19/25 08:35 03/19/25 08:35 03/19/25 08:35 03/19/25 08:35
I&O
03/18/25 03/19/25 03/20/25
06:59 06:59 06:59
Intake Total 1090 / 1090
Output Total 200 / 200
Balance 890 / 890
Physical Exam
Physical Exam
Cardiology: S1, S2 and Other (PAULA)
Pulmonary: Clear
GI: Soft, Non Distended, Non Tender and Normal Bowel Sounds
[2025-03-19] MEDS: PROTONIX IV 40 MG IV ×2 (10:41→19:52)
[2025-03-19] MEDS: NSS (PRESERVATIVE FREE) 10 ML IV ×2 (10:42→19:52)
[2025-03-19] MEDS: APRESOLINE 10 MG IV (10:42)
[2025-03-19] MEDS: FERRLECIT 110 MG IV (13:36)
[2025-03-20 02:59] VITALS: BP 165/74
[2025-03-20 03:00] VITALS: BMI 25.3
[2025-03-20] MEDS: SYNTHROID 75 MCG PO (06:23)
[2025-03-20 07:01] LABS: Hematocrit 31.0 % (37.0-47.0); Hemoglobin 10.2 g/dL (12.0-16.0); Mean Corp Hgb Conc. 32.9 g/dL (33.0-37.0); Mean Corpuscular Volume 80.9 fL (81.0-99.0); Platelet Count 363 10^3/uL (130-400); Red Cell Dist. Width 16.7 % (11.5-14.5)
--- NOTE | 2025-03-20 07:05 | W.PN.HOSP.TC ---
Today's Communication/Plan
-
Continue liquid diet until dinner, then switch to NPO
Endoscopy tomorrow
Plan to restart only Xarelto after endoscopy, D/c Plavix
Continue to monitor H&H
Assessment / Plan
Assessment / Plan
Assessment:
Plan:
#Acute Anemia likely secondary to upper GI bleed
#Peptic Ulcer Disease
-Patient with recent hospitalization at [facility] with endoscopy on 03/02- non bleeding ulcer 1.5cm noted on endoscopy, restarted on asa plavix on 03/06
-Hemoglobin on admission 6.6, s/p 2 units pRBCs maria esther to 10.1 yesterday, 10.2 today
-Iron studies reveal low % saturation and increased reticulocyte count.
-Continue on IV pantoprazole
-Continue to monitor H&H
-GI is following with plan for endoscopy on Friday following Xarelto washout
-Reviewed outpatient cardiology records. Plan to stop Plavix after discharge and continue with just Xarelto. Encouraged patient to contact her donor specialist for sooner follow up after discharge as they may wish to switch her to Eliquis in the future.
-Continue on clear liquids with plan for NPO after dinner tonight. Order is already in.
-Will monitor
# Hyponatremia
-Mild, likely hypovolemic
-Continue to monitor BMP
#Essential Hypertension
-IV Hydralazine Q6HR PRN for high blood pressure, noncompliant with her home medications
-HOLD amlodipine and losartan at this time
-Continue to monitor blood pressure
#Hypothyroidism-Continue levothyroxine 75mcg daily
#History of CVA in 03/2024 and 04/2024-HOLD Xarelto, Plavix in the setting of GI bleed. Restart only Xarelto after endoscopy.
#Coronary Artery Disease-S/p stent in 2019
#Depression- noncompliant with meds hold on Celexa for now
CODE-FULL
DVTp-SCDS
Dispo-from [facility], lives with
Anticipated Discharge: 24 - 48 hours
Subjective/Interval History
-
Date of Service: March 20, 2025
Patient reports feeling very good today. She continues to be free of chest pain, shortness of breath, abdominal pain, nausea, vomiting, diarrhea or constipation. She last had a bowel movement overnight, which appeared brown in color to her.
Objective Data
-
Labs:
Laboratory Results
03/20/25
05:56
WBC 8.2
Hgb 10.2 L
Hct 31.0 L
Plt Count 363
Sodium Pending
Potassium Pending
Chloride Pending
Carbon Dioxide Pending
BUN Pending
Creatinine Pending
Glucose Pending
Calcium Pending
Vital Signs:
Vital Signs
Temp Pulse Resp BP Pulse Ox
97.4 F 84 16 165/74 95
03/20/25 02:59 03/20/25 02:59 03/20/25 02:59 03/20/25 02:59 03/20/25 02:59
I&O
03/19/25 03/20/25 03/21/25
06:59 06:59 06:59
Intake Total 1090 / 1090 960 / 960
Output Total 200 / 200
Balance 890 / 890 960 / 960
Review of Systems
-
History Source: Patient
Constitutional: Denies Fever, Weight Loss, No Appetite, Fatigue or Chills
Respiratory: Denies Cough or Trouble Breathing
Cardiac: Denies Chest Pain
Abdomen/GI: Denies Abdominal Pain, Nausea, Vomiting, Diarrhea, Constipated, Bloody Stools or Black Stools
Neuro: Denies Dizzy or Weakness
Physical Exam
-
General: Well Developed, Well Nourished and No Apparent Distress
HEENT: Normocephalic and Atraumatic
Respiratory: Clear to Auscultation
Cardiac: Regular Rhythm and S1/S2
GI: Soft, Nontender, Nondistended and Normal Bowel Sounds
Skin: Warm and Dry
Neuro: Awake, Alert and Oriented
Psych: Calm and Intact Judgement/Insight
[2025-03-20 07:25] LABS: Blood Urea Nitrogen 8 mg/dl (7-17); Calcium 9.2 mg/dl (8.4-10.2); Carbon Dioxide 25 mmol/L (22-30); Chloride 105 mmol/L (98-107); Estimated Creatinine Clearance 42 ml/min; Glucose 93 mg/dl (70-99); Potassium 4.8 mmol/L (3.5-5.1); Sodium 132 mmol/L (135-145); eGFR > 60.00
[2025-03-20 08:12] VITALS: BP 159/64
--- NOTE | 2025-03-20 08:17 | CM ---
Addendum entered by Jada Swift 03/20/25 15:47:
Pt is considering Uber/Lyft transport vs. w/c van.
Original Note:
CM following for discharge planning. Pt to return to [facility] (personal care unit) pending PT/OT evaluations.
[2025-03-20] MEDS: NSS (PRESERVATIVE FREE) 10 ML IV ×2 (08:18→20:47)
[2025-03-20] MEDS: PROTONIX IV 40 MG IV ×2 (08:18→20:47)
[2025-03-20 11:53] VITALS: BP 145/53
--- NOTE | 2025-03-20 14:30 | W.PN.GI.CBS2 ---
Today's Communication / Plan
-
EGD Friday
Assessment / Plan
-
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
ventricular surface of the mitral valve on SILVER on Plavix and Xarelto, hyponatremia, recent hospitalization to [facility] in the beginning of February for melena and weakness. Found to have a 1.5 cm nonbleeding duodenal ulcer. Patient
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 She states that during the time of her GI bleeding she was transfused 2 units of packed red blood cells during her hospitalization. She was taken off of Plavix and Xarelto. She was
placed on a heparin drip and eventually went through endoscopy on 03/02/2025. Was on pantoprazole 40 mg twice daily. She was placed back on her Plavix and Xarelto and on 03/06/2025 her hemoglobin was 11.6 on discharge. The patient had repeat lab
work performed as an outpatient on 03/16/2025 and hemoglobin was 7.5. She was instructed to come to the emergency room for further evaluation. We are asked to evaluate for the same. Currently stool is dark OB positive. Hemoglobin currently 6.6.
Patient is receiving currently 1 unit packed red blood cells. Last dose of Xarelto and Plavix were this morning. Does have left low back discomfort.
Impression:
Duodenal ulcer, diagnosed 03/02/2025 [facility] (will need to obtain records)
--> Has been on pantoprazole 40 mg twice daily
Severe anemia, blood loss hemoglobin currently 6.6 down from 11.6--> 03/06/2024
History of CVA (04/2024)
History of mitral valve mass
History of A-fib
History of CAD with PCI LAD 05/2020
--> On Plavix and Xarelto, both taken today
Plan:
- Hemoglobin responded appropriately to 2 units of packed red blood cells and no further active bleeding. Plavix and Xarelto are on hold
- Continue PPI bid
- EGD Friday after Xarelto washout will be performed sooner if she has further drop in hemoglobin or active bleeding
- on full liquids will advance diet after EGD if no active bleeding
- Will also need eventual outpatient colonoscopy with her outpatient GI given her prior history of colon polyps, although given age may not need further surveillance
- She also has iron deficiency anemia may also benefit from iron infusions
- need to assess whether she needs to go back on both Plavix and Xarelto at the time of DC
Subjective
Subjective
Date of Service: March 20, 2025
No further episodes of melena. Hemoglobin remained stable posttransfusion. Also denies any abdominal pain no hematemesis.
Objective
Data Reviewed
Laboratory Data:
Laboratory Results
03/20/25 05:56
03/20/25 05:56
Laboratory Results
Total Bilirubin 0.9 mg/dl (0.2-1.3) 03/18/25 10:02
AST 22 U/L (14-36) 03/18/25 10:02
ALT 15 U/L (0-35) 03/18/25 10:02
Alkaline Phosphatase 47 U/L (38-126) 03/18/25 10:02
Vital Signs and I&O:
Vital Signs
Temp Pulse Resp BP Pulse Ox
97.9 F 66 16 145/53 97
03/20/25 11:53 03/20/25 11:53 03/20/25 11:53 03/20/25 11:53 03/20/25 11:53
I&O
03/19/25 03/20/25 03/21/25
06:59 06:59 06:59
Intake Total 1090 / 1090 960 / 960
Output Total 200 / 200
Balance 890 / 890 960 / 960
Physical Exam
Physical Exam
Cardiology: S1, S2 and Murmur (Systolic murmur)
Pulmonary: Clear
GI: Soft, Non Distended, Non Tender and Normal Bowel Sounds
[2025-03-20 16:01] VITALS: BP 144/71
[2025-03-20 19:00] VITALS: BP 158/89
[2025-03-20 23:00] VITALS: BP 160/67
[2025-03-21] VITALS (7 sets, daily range): BP systolic 18–179; BP diastolic 43–109; BMI 25.1
[2025-03-21] MEDS: SYNTHROID PO (05:24)
[2025-03-21 07:08] LABS: Hematocrit 29.6 % (37.0-47.0); Hemoglobin 9.9 g/dL (12.0-16.0); Mean Corp Hgb Conc. 33.4 g/dL (33.0-37.0); Mean Corpuscular Volume 82.0 fL (81.0-99.0); Platelet Count 358 10^3/uL (130-400); Red Cell Dist. Width 16.3 % (11.5-14.5)
--- NOTE | 2025-03-21 07:22 | W.PN.HOSP.TC ---
Addendum entered and electronically signed by Paramjit Umana MD 03/21/25 21:34:
Attending Addendum-I saw and evaluated the patient. I reviewed the resident�s note and agree with findings and plan as documented in the resident�s note. Sub: Patent very pleasant with no bloody BM's over weekend. No abd pain N/V. Full 12 point ROS
reviewed and negative except as documented Exam- vitals reviewed in EMR GEN-NAD heart RRR lungs clear abd soft NT ND pos BS LE no edema
Plan:
#Acute Anemia likely secondary to upper GI bleed
#Peptic Ulcer Disease/DU
-Patient with recent hospitalization at [facility] with endoscopy on 03/02- non bleeding DU, restarted on asa/plavix on 03/06
-2 units pRBCs received in ED
-DC IV Protonix->PO
-Recheck CBC in the AM
-GI on board
-Endo-03/21-non bleeding DU, post ulcer deformity bx not taken
-resume regular diet
# Hyponatremia-stable
#Essential Hypertension
-hold home amlodipine and losartan-patient noncompliant
-CTM
#Hypothyroidism-Continue levothyroxine
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
#History of CVA in 03/2024 and 04/2024-restart Xarelto, Plavix
#Coronary Artery Disease-S/p stent in 2019
#Depression- noncompliant with meds restart Celexa
CODE-FULL
DVTp-SCDS
[facility] - DC in am
Time spent coordinating care, review of plan of care with resident, personally reviewed records in EMR, med rec, consults, notes, labs, radiology, d/w nursing and CM � 51 mins
Original Note:
Today's Communication/Plan
-
Endoscopy today
Assessment / Plan
Assessment / Plan
Assessment:
Plan:
#Acute Anemia likely secondary to upper GI bleed
#Peptic Ulcer Disease
-Patient with recent hospitalization at [facility] with endoscopy on 03/02- non bleeding ulcer 1.5cm noted on endoscopy, restarted on asa plavix on 03/06
-Hemoglobin on admission 6.6, s/p 2 units pRBCs maria esther to 10.1
-Iron studies reveal low % saturation and increased reticulocyte count.
-Continue on IV pantoprazole
-Continue to monitor H&H
-GI is following with plan for endoscopy on today following Xarelto washout
-Reviewed outpatient cardiology records. Plan to stop Plavix after discharge and continue with just Xarelto. Encouraged patient to contact her radio equipment repairer for sooner follow up after discharge as they may wish to switch her to Eliquis in the future.
-Can restart diet following endoscopy
-Will monitor
# Hyponatremia
-Mild, likely hypovolemic
-Continue to monitor BMP
#Essential Hypertension
-IV Hydralazine Q6HR PRN for high blood pressure, noncompliant with her home medications
-HOLD amlodipine and losartan at this time
-Continue to monitor blood pressure
#Hypothyroidism-Continue levothyroxine 75mcg daily
#History of CVA in 03/2024 and 04/2024-HOLD Xarelto, Plavix in the setting of GI bleed. Restart only Xarelto after endoscopy.
#Coronary Artery Disease-S/p stent in 2019
#Depression- noncompliant with meds hold on Celexa for now
CODE-FULL
DVTp-SCDS
Dispo-from [facility], lives with
Anticipated Discharge: Within 24 hours
Subjective/Interval History
-
Date of Service: March 21, 2025
Patient was doing well today, resting comfortably in her bed. She continues to be free of shortness of breath, chest pain, fevers, chills, abdominal pain, nausea, vomiting, diarrhea, constipation. She has not noted any dark stools or blood in her
stools during this admission.
Objective Data
-
Labs:
Laboratory Results
03/21/25
06:14
WBC 6.2
Hgb 9.9 L
Hct 29.6 L
Plt Count 358
Sodium Pending
Potassium Pending
Chloride Pending
Carbon Dioxide Pending
BUN Pending
Creatinine Pending
Glucose Pending
Calcium Pending
Vital Signs:
Vital Signs
Temp Pulse Resp BP Pulse Ox
97.4 F 65 14 158/58 99
03/21/25 03:00 03/21/25 03:00 03/21/25 03:00 03/21/25 03:00 03/21/25 03:00
I&O
03/20/25 03/21/25 03/22/25
06:59 06:59 06:59
Intake Total 960 / 960 900 / 900
Balance 960 / 960 900 / 900
Review of Systems
-
History Source: Patient
Constitutional: Denies Fever, No Appetite, Fatigue or Chills
Respiratory: Denies Cough or Trouble Breathing
Cardiac: Denies Chest Pain
Abdomen/GI: Denies Abdominal Pain, Nausea, Vomiting, Diarrhea, Constipated, Bloody Stools or Black Stools
Neuro: Denies Dizzy, Headache, Weakness or Lightheadedness
Physical Exam
-
General: Well Developed, Well Nourished, No Apparent Distress and Comfortable
HEENT: Normocephalic and Atraumatic
Respiratory: Clear to Auscultation
Cardiac: Regular Rhythm and S1/S2
GI: Soft, Nontender, Nondistended and Normal Bowel Sounds
Skin: Warm and Dry
Neuro: Awake, Alert and Oriented
Psych: Calm and Intact Judgement/Insight
[2025-03-21 07:32] LABS: Blood Urea Nitrogen 7 mg/dl (7-17); Calcium 8.9 mg/dl (8.4-10.2); Carbon Dioxide 25 mmol/L (22-30); Chloride 103 mmol/L (98-107); Estimated Creatinine Clearance 42 ml/min; Glucose 91 mg/dl (70-99); Potassium 4.7 mmol/L (3.5-5.1); Sodium 130 mmol/L (135-145); eGFR > 60.00
[2025-03-21] MEDS: PROTONIX IV 40 MG IV ×2 (09:06→20:09)
[2025-03-21] MEDS: NSS (PRESERVATIVE FREE) 10 ML IV ×2 (09:06→20:09)
[2025-03-21] MEDS: APRESOLINE 10 MG IV (11:32)
--- NOTE | 2025-03-21 15:44 | CM ---
Addendum entered by Edith Dhillon 03/21/25 16:14:
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
Original Note:
Patient seen at bedside
CM called [facility] [place] and spoke with Juliennerico Fernandez [facility] lawn care technician
stated that patient would need a ride to return back to [facility] [place] ([facility] Personal care unit)
Julienne states she will call CM tomorrow regarding time for transport.
tt hospitalist
IMM explained & signed. In chart
PLAN: Return to [facility] [place] ([facility] Personal care unit) tomorrow
Await call from Juleinne regarding time when [facility] will transport
report #: [phone]
fax #: [phone]
[2025-03-22 02:36] LABS: Transferrin 332 mg/dL (200-360)
[2025-03-22] MEDS: SYNTHROID 75 MCG PO (06:11)
[2025-03-22 07:00] VITALS: BP 147/54
--- NOTE | 2025-03-22 07:21 | W.PN.HOSP.TC ---
Addendum entered and electronically signed by Paramjit Umana MD 03/22/25 23:58:
Attending Addendum-I saw and evaluated the patient. I reviewed the resident�s note and agree with findings and plan as documented in the resident�s note. Sub: no bloody BM's overnight. No abd pain N/V. Full 12 point ROS reviewed and negative except
as documented Exam- vitals reviewed in EMR GEN-NAD heart RRR lungs clear abd soft NT ND pos BS LE no edema
Plan:
#Acute Anemia likely secondary to upper GI bleed
#Peptic Ulcer Disease/DU
-Patient with recent hospitalization at [facility] with endoscopy on 03/02- non bleeding DU, restarted on asa/plavix on 03/06
-2 units pRBCs received in ED
-DC IV Protonix->PO
-Recheck CBC stable
-GI on board
-Endo-03/21-non bleeding DU, post ulcer deformity bx not taken
-resume regular diet
# Hyponatremia-stable
#Essential Hypertension
-restart home amlodipine and losartan-patient noncompliant
-CTM
#Hypothyroidism-Continue levothyroxine
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
#Coronary Artery Disease-S/p stent in 2019
#Depression- noncompliant with meds restart Celexa
CODE-FULL
DVTp-SCDS
[facility]-from [facility], lives with - DC
Time spent coordinating care, DC planning, review of DC plan of care with resident, transition of care, review of records, med rec/scripts sent electronically, consults, notes, d/w consultants, nursing, family, home paint crew supervisor and CM� 32 mins >50%
of this time was devoted to counseling and coordination of care
Original Note:
Today's Communication/Plan
-
Discharge planning
Assessment / Plan
Assessment / Plan
Assessment:
Plan:
#Acute Anemia likely secondary to upper GI bleed
#Peptic Ulcer Disease
-Patient with recent hospitalization at [facility] with endoscopy on 03/02- non bleeding ulcer 1.5cm noted on endoscopy, restarted on asa plavix on 03/06
-Hemoglobin on admission 6.6, s/p 2 units pRBCs maria esther to 10.1. Has remained stable since then, most recent hemoglobin 9.9 on 03/21.
-Iron studies reveal low % saturation and increased reticulocyte count.
-Endoscopy from 03/21 showed
--- Z-line irregular and also salmon colored mucosa in distal esophagus 1 cm, not biopsied given recent UGIB and needs to restart AC and not off Plavix for 5 days.
---Normal stomach, Duodenal deformity, Duodenal diverticulum, Normal first portion of the duodenum and second portion of the duodenum.
-Based on results of Endoscopy, she needs repeat colonoscopy and small bowel Capsule study as OP with her GI since she has REGINALDO to r/o small bowel angiectasias. She will also need repeat EGD off Plavix for 5 days for biopsies to r/o Barretts.
-Continue on pantoprazole, transition to oral today
-Continue to monitor H&H
-Reviewed outpatient cardiology records. Plan to stop Plavix after discharge and continue with just Xarelto. Encouraged patient to contact her paint crew supervisor for sooner follow up after discharge as they may wish to switch her to Eliquis in the future.
She is aware of this plan.
-Reviewed results of endoscopy above with patient yesterday. She is aware of the findings and the fact she must follow up outpatient with gastroenterology.
-She will need CBC in 1 week following discharge
-Will monitor
# Hyponatremia
-Mild, likely hypovolemic
-Continue to monitor BMP
#Essential Hypertension
-IV Hydralazine Q6HR PRN for high blood pressure, noncompliant with her home medications
-HOLD amlodipine and losartan at this time
-Continue to monitor blood pressure
-Encouraged follow up with PCP and paint crew supervisor to discuss blood pressure medications
#Hypothyroidism-Continue levothyroxine 75mcg daily
#History of CVA in 03/2024 and 04/2024-HOLD Xarelto, Plavix in the setting of GI bleed. Continue only Xarelto
#Coronary Artery Disease-S/p stent in 2019
#Depression- noncompliant with meds hold on Celexa for now
CODE-FULL
DVTp-SCDS
Dispo-from [facility], lives with
Anticipated Discharge: Today
Subjective/Interval History
-
Date of Service: March 22, 2025
Patient was resting comfortably in bed when I arrived. She continues to be free of fevers, chills, lightheadedness, chest pain, shortness of breath, abdominal pain, nausea, vomiting, diarrhea or constipations. She feels excited to return to her home
today.
Objective Data
-
Vital Signs:
Vital Signs
Temp Pulse Resp BP Pulse Ox
97.9 F 68 16 147/54 98
03/22/25 07:00 03/22/25 07:00 03/22/25 07:00 03/22/25 07:00 03/22/25 07:00
I&O
03/21/25 03/22/25 03/23/25
06:59 06:59 06:59
Intake Total 900 / 900 480 / 480
Balance 900 / 900 480 / 480
Review of Systems
-
History Source: Patient
Constitutional: Denies Fever or Chills
Respiratory: Denies Trouble Breathing
Cardiac: Denies Chest Pain
Abdomen/GI: Denies Abdominal Pain, Nausea, Vomiting, Diarrhea or Constipated
Neuro: Denies Dizzy or Weakness
Physical Exam
-
General: Well Developed, Well Nourished, No Apparent Distress and Comfortable
HEENT: Normocephalic and Atraumatic
Respiratory: Clear to Auscultation
Cardiac: Regular Rhythm and S1/S2
GI: Soft, Nontender, Nondistended and Normal Bowel Sounds
Skin: Warm and Dry
Psych: Calm and Intact Judgement/Insight
--- NOTE | 2025-03-22 08:06 | W.DCSUMMARY ---
Addendum entered and electronically signed by Paramjit Umana MD 03/22/25 23:59:
Read, reviewed, and agree. See same day progress note for additional details. Verified meds with individual pension consultant. DC on xarelto full dose DC plavix.
Froy Umana MD
Original Note:
Documented by User: Heather Mcnamara DO, Resident 03/22/25 10:07
Discharge Summary
Discharge Data
Date of Admission: 03/18/25
Date of Discharge: 03/22/25
-
Pending Results: No
Hospital Course
Discharging Physician : Dr. Umana
Disposition : Good
Primary care physician : Valeria Alfaro
Principal Discharge diagnosis : Acute Asymptomatic Anemia
Chronic Discharge diagnosis : Essential hypertension, coronary artery disease s/p stent in 2019, hyperlipidemia, atrial fibrillation, hypothyroidism, CVA in 03/2024 and 04/2024, Peptic Ulcer Disease
Hospital Course :
This is an 84 y/o female with pmhx of essential hypertension, coronary artery disease s/p stent in 2019, hyperlipidemia, atrial fibrillation, hypothyroidism, CVA in 03/2024 and 04/2024, Peptic Ulcer Disease who presented to the ED on 03/18/2025
following an abnormal lab value in the outpatient setting. 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 Since that time she has
been taking both Plavix 75mg daily and Xarelto 15mg daily.
Of note, patient reports a recent hospitalization 3 weeks ago. She states that she had melena and weakness, prompting her PCP to check her hemoglobin. It was 6.3, so she was sent to [facility] where she was transfused with 2 units of pRBCs.
She reports an endoscopy was performed which showed a 1.5cm duodenal ulcer. No colonoscopy was completed at that time, though she is reportedly due for one in the outpatient setting now. Following transfusion, her hemoglobin reportedly increased to
11.6 and she was discharged on pantoprazole 40mg BID.
On 03/16/2025, a repeat hemoglobin was checked by her PCP. She reports this value was 8.5, and she was instructed to come to the ED as her PCP was not certain why her hemoglobin had dropped so quickly from 11.6 following transfusion.
In the ED on 03/18, her hemoglobin was 6.6. Two units of pRBCs were transfused, and she was admitted to the hospital for further management. At this point her Plavix and Xarelto were held so she could undergo an upper endoscopy on 03/21/2025 following
washout.
On 03/19 and 03/20 she remained asymptomatic on a clear liquid diet, which was changed to NPO after dinner on 03/20. Her hemoglobin maria esther to 10.1 on 03/19, and 10.2 on 03/20.
On 03/21/2025 her hemoglobin was 9.9. She underwent an upper endoscopy which revealed that the Z-line irregular and also salmon colored mucosa in distal esophagus 1 cm, not biopsied given recent UGIB and needs to restart AC and not off Plavix for 5
days. Normal stomach, Duodenal deformity, Duodenal diverticulum, Normal first portion of the duodenum and second portion of the duodenum.
Based on results of Endoscopy, she needs repeat colonoscopy and small bowel Capsule study as OP with her GI since she has REGINALDO to r/o small bowel angiectasias. She will also need repeat EGD off Plavix for 5 days for biopsies to r/o Barretts.
On 03/22 she was found to be medically stable and discharged back to [facility]. She was instructed to STOP taking Plavix and only take Xarelto upon discharge. She was instructed to follow up with her individual pension consultant for further anticoagulation
adjustments. She was also instructed to follow up with her PCP in less than 1 week, and with her desktop support specialist based upon the findings in her upper endoscopy.
Important imaging findings : N/a
Procedure findings :
Upper Endoscopy: Z-line irregular and also salmon colored mucosa in distal esophagus 1 cm, not biopsied given recent UGIB and needs to restart AC and not off Plavix for 5 days. Normal stomach, Duodenal deformity, Duodenal diverticulum, Normal first
portion of the duodenum and second portion of the duodenum.
Based on results of Endoscopy, she needs repeat colonoscopy and small bowel Capsule study as OP with her GI since she has REGINALDO to r/o small bowel angiectasias. She will also need repeat EGD off Plavix for 5 days for biopsies to r/o Barretts.
Discharge Plan
-
Patient Disposition: Home (Routine Discharge)
Discharge Diagnosis/Procedures: Acute Anemia
Condition: Good
Diet: No restrictions
Activity: No restrictions
Driving Restrictions: As prior to admission
Bathing Restrictions: None
Blood Work: CBC in 1 week
Referrals:
Valeria Fisher MD [Family Provider, Internal Medicine] - in less than 1 week
Additional Discharge Medication Instructions: You may resume taking your Xarelto (15mg once daily) upon discharge. DO NOT take Plavix.
Please follow up with your individual pension consultant's office after leaving the hospital, as they may wish to change your anticoagulation medications further.
We recommend you follow up with your PCP in less than 1 week.
You will need to follow up with your desktop support specialist's office for repeat upper endoscopy and colonoscopy. Please call them and schedule an appointment.
Prescriptions:
New
Xarelto 20 mg tablet
20 mg PO QPM Qty: 30 0RF
Continued
omega-3 fatty acids-fish oil 684-1,200 mg capsule,delayed release(DR/EC)
1 cap PO DAILY
amlodipine [Norvasc] 5 mg Tablet
5 mg PO DAILY
cholecalciferol (vitamin D3) [Vitamin D3] 25 mcg (1,000 unit) Capsule
25 mcg PO DAILY
folic acid 1 mg Tablet
1 mg PO DAILY
pantoprazole [Protonix] 40 mg Tablet,Delayed Release (Dr/Ec)
40 mg PO BID
losartan 50 mg Tablet
50 mg PO BID 30 Days Qty: 60 0RF
citalopram [Celexa] 10 mg Tablet
10 mg PO DAILY 30 Days Qty: 30 0RF
cyanocobalamin (vitamin B-12) 1,000 MCG tablet
1,000 mcg PO DAILY 30 Days Qty: 30 0RF
levothyroxine 75 MCG tablet
75 mcg PO DAILY 30 Days Qty: 30 0RF
Discontinued
Xarelto 15 mg Tablet
15 mg PO DAILY
Discharge Orders:
Discharge Patient (As Directed); Ordered 03/22/25
Ordered By: Heather Mcnamara
Discharge Date and Time
Discharge Date/Time: 03/22/25 10:35
Print Language: BENGALI

Documented by User: Paramjit Umana MD 03/22/25 23:55
Discharge Summary
Discharge Data
Date of Admission: 03/18/25
Date of Discharge: 03/22/25
Discharge Plan
-
Patient Disposition: Home (Routine Discharge)
Discharge Diagnosis/Procedures: Acute Anemia
Condition: Good
Diet: No restrictions
Activity: No restrictions
Driving Restrictions: As prior to admission
Bathing Restrictions: None
Blood Work: CBC in 1 week
Referrals:
Valeria Fisher MD [Family Provider, Internal Medicine] - in less than 1 week
Additional Discharge Medication Instructions: You may resume taking your Xarelto (15mg once daily) upon discharge. DO NOT take Plavix.
Please follow up with your individual pension consultant's office after leaving the hospital, as they may wish to change your anticoagulation medications further.
We recommend you follow up with your PCP in less than 1 week.
You will need to follow up with your desktop support specialist's office for repeat upper endoscopy and colonoscopy. Please call them and schedule an appointment.
Prescriptions:
New
Xarelto 20 mg tablet
20 mg PO QPM Qty: 30 0RF
Continued
omega-3 fatty acids-fish oil 684-1,200 mg capsule,delayed release(DR/EC)
1 cap PO DAILY
amlodipine [Norvasc] 5 mg Tablet
5 mg PO DAILY
cholecalciferol (vitamin D3) [Vitamin D3] 25 mcg (1,000 unit) Capsule
25 mcg PO DAILY
folic acid 1 mg Tablet
1 mg PO DAILY
pantoprazole [Protonix] 40 mg Tablet,Delayed Release (Dr/Ec)
40 mg PO BID
losartan 50 mg Tablet
50 mg PO BID 30 Days Qty: 60 0RF
citalopram [Celexa] 10 mg Tablet
10 mg PO DAILY 30 Days Qty: 30 0RF
cyanocobalamin (vitamin B-12) 1,000 MCG tablet
1,000 mcg PO DAILY 30 Days Qty: 30 0RF
levothyroxine 75 MCG tablet
75 mcg PO DAILY 30 Days Qty: 30 0RF
Discontinued
Xarelto 15 mg Tablet
15 mg PO DAILY
Discharge Orders:
Discharge Patient (As Directed); Ordered 03/22/25
Ordered By: Heather Mcnamara
Discharge Date and Time
Discharge Date/Time: 03/22/25 10:35
Print Language: BENGALI
[2025-03-22] MEDS: PROTONIX 40 MG PO (08:28)
--- NOTE | 2025-03-22 08:41 | CM ---
CM spoke with Julienne Echevarria nursing care coord at [facility]
CM confirmed that [facility] will transport the patient today at 10am-they will call unit coordinator once they arrive
IMM signed yesterday-in chart
PLAN: Return to [facility] ([facility] Personal care unit) today
report #: [phone]
fax #: [phone]
[facility] to transport at 10am
--- NOTE | 2025-03-22 18:14 | W.PN.UPDATE ---
Update Note
Progress Note Update
Following patient's discharge from the hospital received a call back from her promotions officer. She had been hospitalized at an outside hospital previously which was when her Aspirin/Eliquis had been changed to Plavix/Xarelto and stroke prevent is the
reason for her anticoagulation.
At the time of this discharge, the plan is continue with Xarelto only. Although the estimated creatinine clearance for this patient was in the 40s, her actual creatinine clearance as of today was calculated at exactly 50. Given her home dose of
Xarelto was only 15mg when it should be 20mg when used as a single therapy, I sent a new prescription to the patient's pharmacy to reflect the new dosage, left a voice mail at the pharmacy to inform them of the change, and contacted the patient's
home directly to inform me of the change. Unfortunately, she was being housed at a separate building from her landline at [facility], so I contacted the nurse's station there and informed them of the change directly as well.
== END 2025-03-22 10:35 | disposition home or self-care (01) | DRG 811 ==
LOC: 3 WEST ACU 13:35
PROVIDERS: ADMITTING PHYSICIAN Family Medicine; CONSULT PHYSICIAN Internal Medicine Gastroenterology; EMERGENCY PHYSICIAN Emergency Medicine; FAMILY PHYSICIAN Internal Medicine
PROC: 30233N1 Transfusion of Nonautologous Red Blood Cells into Peripheral Vein, Percutaneous Approach (ICD-10-PCS; 2025-03-18)
PROC: 0DJ08ZZ Inspection of Upper Intestinal Tract, Via Natural or Artificial Opening Endoscopic (ICD-10-PCS; 2025-03-21)
DX: D50.0 Iron deficiency anemia secondary to blood loss (chronic) (principal); K26.4 Chronic or unspecified duodenal ulcer with hemorrhage; K92.1 Melena; E87.1 Hypo-osmolality and hyponatremia; I25.10 Atherosclerotic heart disease of native coronary artery without angina pectoris; E03.9 Hypothyroidism, unspecified; I10 Essential (primary) hypertension; E86.1 Hypovolemia; F32.A Depression, unspecified; I48.91 Unspecified atrial fibrillation; K22.89 Other specified disease of esophagus; K31.89 Other diseases of stomach and duodenum; K57.10 Diverticulosis of small intestine without perforation or abscess without bleeding; Z79.899 Other long term (current) drug therapy; Z86.73 Personal history of transient ischemic attack (TIA), and cerebral infarction without residual deficits; Z91.148 Patient's other noncompliance with medication regimen for other reason; Z79.01 Long term (current) use of anticoagulants; Z79.02 Long term (current) use of antithrombotics/antiplatelets; Z79.890 Hormone replacement therapy; Z86.0100 Personal history of colon polyps, unspecified; Z87.891 Personal history of nicotine dependence
CPT/HCPCS: 36430; 80048; 80053; 82728; 83540; 83550; 84466; 85025; 85027; 85045; 86850; 86900; 86901; 86920; 96365; 96366; 99285; J2916; P9016